=== PATIENT | female | born 1950 | race Hispanic/Latino ===

== ENCOUNTER 2016-12-29 09:28 | Outpatient (CLI) | payer MEDICARE ==
--- NOTE | 2016-12-29 11:18 | Magnetic Resonance Report ---
MRI BRAIN WITHOUT CONTRAST INDICATION: Paraplegia. COMPARISON: None similar. FINDINGS: Noncontrast multiplanar and multisequence MRI of the brain demonstrates symmetric, age-appropriate, mildly enlarged ventricles and sulci without acute infarct, hemorrhage, mass effect or midline shift. No abnormal extra-axial masses or fluid collections. Mild periventricular and few white matter FLAIR and T2 weighted hyperintensities. Normal major intracranial vascular flow voids. Normal posterior fossa structures with symmetric seventh and eighth nerve complexes. Bilateral cataract surgery. Severe, complete heterogeneous opacification of left maxillary sinus, possibly slightly extending into the nasal cavity. Slight ethmoid sinusitis. Mild to moderate left sphenoid sinus opacification as well. Mild rightward nasal septal bowing anteriorly. Normal remainder midline structures without evidence of Chiari malformation. CONCLUSION: No acute intracranial MRI abnormality with left-sided sinusitis noted, most involving the left maxillary sinus, as described. Please correlate clinically, with prior relevant imaging or further with dedicated sinus CT, as warranted. Thank you for the opportunity to participate in this patient's care.
--- NOTE | 2016-12-29 11:28 | Magnetic Resonance Report ---
MRI LUMBAR SPINE WITHOUT CONTRAST INDICATION: Paraplegia, unspecified. COMPARISON: None similar. FINDINGS: Noncontrast multiplanar and multisequence MRI of the lumbar spine limited due to motion artifact with repeats not tolerated by the patient. Normal conus medullaris terminating behind L1. Normal vertebral body stature, alignment and marrow signal except for slight edema along L5 superior endplate Schmorl's node. Few other lumbar endplate Schmorl's nodes noted. Slight lumbar disc desiccation at few levels. Mild to moderate L4-5 disc narrowing. No abnormal paraspinal density. Intact SI joints. Axial images demonstrate no significant spinal stenosis at any level. Slight disc bulge with ventral thecal sac flattening/indentation incidentally noted as at L4-L5. Mild bilateral facet degenerative changes at L3-L4 and L4-L5. CONCLUSION: No acute lumbar spine radiographic abnormality on this limited exam with few degenerative changes, as described above. Thank you for the opportunity to participate in this patient's care.
== END 2016-12-29 09:29 | disposition home or self-care (01) ==
LOC: MRI 09:28
PROVIDERS: ATTEND Psychiatry & Neurology Neurology
DX: G82.20 Paraplegia, unspecified (principal); G91.2 (Idiopathic) normal pressure hydrocephalus; M48.06 Spinal stenosis, lumbar region; M47.896 Other spondylosis, lumbar region; F17.210 Nicotine dependence, cigarettes, uncomplicated
CPT/HCPCS: 70551; 72148

== ENCOUNTER 2017-01-10 09:34 | Day surgery (SDC) | payer MEDICARE ==
[2017-01-10 11:39] LABS: INR 1.24 (0.87-1.13)
[2017-01-10 11:40] LABS: Partial Thromboplastin Time 37.1 Sec. (24.2-36.6)
[2017-01-10] MEDS ORDERED: VALIUM PO ONE (12:30)
--- NOTE | 2017-01-10 13:53 | History and Physical Report ---
History of Present Illness Date of examination: 01/10/17 Chief complaint: h/a History of present illness: chronic Medications and Allergies Allergies Allergy/AdvReac Type Severity Reaction Status Date / Time No Known Allergies Allergy Unverified 05/25/13 18:26 Home Medications Medication Instructions Recorded Confirmed Last Taken Type Aspirin [Aspirin TAB] 325 mg PO Q6HR PRN 01/10/17 01/10/17 Unknown History Bisacodyl [Dulcolax suppos] 10 mg [place] ONCE PRN 01/10/17 01/10/17 Unknown History Carbidopa/Levodopa 10-100 [Sinemet 1 tab PO Q8H 01/10/17 01/10/17 01/10/17 04: 30 History 10/100] Cyclobenzaprine [Flexeril] 10 mg PO BID 01/10/17 01/10/17 01/09/17 History HYDROcodone/APAP 5-325 [Agate 1 each PO Q4HR PRN 01/10/17 01/10/17 Unknown History 5/325] Insulin Aspart [Novolog Flexpen] 1 unit SQ BID 01/10/17 01/10/17 Unknown History Insulin NPH/Regular [Novolin 70/30] 30 unit SQ QDAC 01/10/17 01/10/17 01/09/17 History Insulin NPH/Regular [Novolin 70/30] 100 unit SQ QPMDIAB 01/10/17 01/10/17 History Linaclotide (Nf) [Linzess (Nf)] 290 mcg PO QDAY 01/10/17 01/10/17 01/09/17 History Methadone [Dolophine] 15 mg PO QAM 01/10/17 01/10/17 01/10/17 04:30 History Methadone [Dolophine] 20 mg PO QPM 01/10/17 01/10/17 01/09/17 History Metoclopramide HCl [Metoclopramide 10 mg PO Q8H 01/10/17 01/10/17 01/10/17 04: 30 History HCl Odt] Multivit with Calcium,Iron,Min 1 tab PO DAILY 01/10/17 01/10/17 01/09/17 History [Multiple Vitamins For Women] Omeprazole Magnesium [PriLOSEC Otc] 20 mg PO QAM 01/10/17 01/10/17 01/09/17 History Sertraline [Zoloft] 100 mg PO QAM 01/10/17 01/10/17 01/10/17 04:30 History Spironolactone [Aldactone] 50 mg PO BID 01/10/17 01/10/17 01/10/17 04:30 History buPROPion XL [Wellbutrin Xl] 150 mg PO QAM 01/10/17 01/10/17 01/09/17 History glyBURIDE [Diabeta] 2.5 mg PO DAILY 01/10/17 01/10/17 01/09/17 History guaiFENesin/DEXTROMETHORPHAN 10 ml PO TID PRN 01/10/17 01/10/17 Unknown History [Robitussin Cough-Chest Dm Liq] traMADol [Ultram] 50 mg PO BID PRN 01/10/17 01/10/17 01/09/17 History traZODone [Desyrel] 50 mg PO QHS 01/10/17 01/10/17 01/09/17 History Exam Vital Signs Temp Pulse Resp BP Pulse Ox 98.4 F 96 H 18 114/69 96 01/10/17 10:25 01/10/17 10:25 01/10/17 10:25 01/10/17 10:25 01/10/17 10:25
--- NOTE | 2017-01-10 13:55 | Procedure Note ---
Date of procedure: 01/10/17 Pre-op diagnosis: nph Post-op diagnosis: same Procedure: lumbar puncture Findings: 25cc clear fluid Anesthesia: local Surgeon: FERNANDO LEDBETTER Estimated blood loss: none Pathology: list (csf) Specimen disposition: to lab Condition: stable Disposition: observation
[2017-01-10] MEDS ORDERED: TYLENOL PO ONE (14:26)
--- NOTE | 2017-01-10 14:50 | Fluoroscopy Report ---
Lumbar puncture: Normal pressure hydrocephalus. The patient was placed on a radiographic table and under fluoroscopic observation position or the lumbar puncture. The skin was cleansed and 1% lidocaine used for local anesthesia. A successful puncture was made with a 20-gauge needle at the L4 level. A total of 25 cc of clear fluid was removed as requested and then sent to the laboratory in 4 separate vials for evaluation. There is an opening pressure of 10 cm of water and the closing pressure of 3 cm. No patient complication encountered at the time of the procedure. The patient was then sent to observation.
[2017-01-10 14:53] LABS: Glucose,CSF 61 mg/dL
[2017-01-10 14:55] VITALS: BP 117/71
[2017-01-10 15:56] LABS: White Blood Cell,CSF 0 /mm3 (1-10)
[2017-01-10 15:57] LABS: Appearance,CSF Clear; CSF Diff Status Complete
== END 2017-01-10 15:05 ==
LOC: OPU 09:34 → FLUORO 09:34 → OPU 15:05
PROVIDERS: ATTEND Psychiatry & Neurology Neurology
DX: G91.2 (Idiopathic) normal pressure hydrocephalus (principal); E11.9 Type 2 diabetes mellitus without complications; Z79.4 Long term (current) use of insulin
CPT/HCPCS: 36415; 62270; 77003; 82947; 84160; 85610; 85730; 89051

== ENCOUNTER 2017-03-07 22:54 | Inpatient (IN) | payer MEDICARE ==
[2017-03-07] MEDS ORDERED: NACL 0.9% 1000 ML 1,000 ML IV ONE (23:51)
--- NOTE | 2017-03-07 23:53 | Emergency Department Report ---
ED General Adult HPI - General Chief complaint: Recheck/Abnormal Lab/Rx Stated complaint: GENERAL WEAKNESS, LETHARGIC Time Seen by Provider: 03/07/17 23:40 Source: patient, EMS (ems notes not available at time of chart dictation), RN notes reviewed, old records reviewed Mode of arrival: Stretcher Limitations: Physical Limitation - History of Present Illness Initial comments: This is a 66-year-old female. She is previously unknown to me. [facility]. Past medical history includes diabetes, hepatitis C. Patient was sent to the ER for evaluation of altered mental status, delirium, decreased responsiveness, patient is unable to describe exacerbating or relieving factors. Patient denies headache, neck pain, chest pain, abdominal pain or shortness of breath. The patient reports the follow week ago, she does not know how she fell. The patient is presently altered, and cannot describe exacerbating or relieving factors. senior living documentation is limited at this time. -: unknown Consistency: constant Improves with: none, immobilization Associated Symptoms: confusion, weakness - Related Data Home Medications Medication Instructions Recorded Confirmed Last Taken Aspirin [Aspirin TAB] 325 mg PO Q6HR PRN 01/10/17 01/10/17 Unknown Bisacodyl [Dulcolax suppos] 10 mg [place] ONCE PRN 01/10/17 01/10/17 Unknown Carbidopa/Levodopa 10-100 [Sinemet 1 tab PO Q8H 01/10/17 01/10/17 01/10/17 04:30 10/100] Cyclobenzaprine [Flexeril] 10 mg PO BID 01/10/17 01/10/17 01/09/17 HYDROcodone/APAP 5-325 [Bethany 1 each PO Q4HR PRN 01/10/17 01/10/17 Unknown 5/325] Insulin Aspart [Novolog Flexpen] 1 unit SQ BID 01/10/17 01/10/17 Unknown Insulin NPH/Regular [Novolin 70/30] 30 unit SQ QDAC 01/10/17 01/10/17 01/09/17 Insulin NPH/Regular [Novolin 70/30] 100 unit SQ QPMDIAB 01/10/17 01/10/17 Linaclotide (Nf) [Linzess (Nf)] 290 mcg PO QDAY 01/10/17 01/10/17 01/09/17 Methadone [Dolophine] 15 mg PO QAM 01/10/17 01/10/17 01/10/17 04:30 Methadone [Dolophine] 20 mg PO QPM 01/10/17 01/10/17 01/09/17 Metoclopramide HCl [Metoclopramide 10 mg PO Q8H 01/10/17 01/10/17 01/10/17 04:30 HCl Odt] Multivit with Calcium,Iron,Min 1 tab PO DAILY 01/10/17 01/10/17 01/09/17 [Multiple Vitamins For Women] Omeprazole Magnesium [PriLOSEC Otc] 20 mg PO QAM 01/10/17 01/10/17 01/09/17 Sertraline [Zoloft] 100 mg PO QAM 01/10/17 01/10/17 01/10/17 04:30 Spironolactone [Aldactone] 50 mg PO BID 01/10/17 01/10/17 01/10/17 04:30 buPROPion XL [Wellbutrin Xl] 150 mg PO QAM 01/10/17 01/10/17 01/09/17 glyBURIDE [Diabeta] 2.5 mg PO DAILY 01/10/17 01/10/17 01/09/17 guaiFENesin/DEXTROMETHORPHAN 10 ml PO TID PRN 01/10/17 01/10/17 Unknown [Robitussin Cough-Chest Dm Liq] traMADol [Ultram] 50 mg PO BID PRN 01/10/17 01/10/17 01/09/17 traZODone [Desyrel] 50 mg PO QHS 01/10/17 01/10/17 01/09/17 Allergies Allergy/AdvReac Type Severity Reaction Status Date / Time No Known Allergies Allergy Verified 03/07/17 23:29 ED Review of Systems ROS: Stated complaint: GENERAL WEAKNESS, LETHARGIC Other details as noted in HPI Comment: Unobtainable due to pts medical conditions ED Past Medical Hx - Past Medical History Previous Medical History?: Yes Hx Hypertension: No Hx Heart Attack/AMI: No Hx Congestive Heart Failure: No Hx Diabetes: Yes (IDDM) Hx Liver Disease: Yes Hx Asthma: No Hx COPD: No - Surgical History Past Surgical History?: Yes Additional Surgical History: hyst - Social History Smoking Status: Never Smoker Substance Use Type: Alcohol - Medications Home Medications: Home Medications Medication Instructions Recorded Confirmed Last Taken Type Aspirin [Aspirin TAB] 325 mg PO Q6HR PRN 01/10/17 01/10/17 Unknown History Bisacodyl [Dulcolax suppos] 10 mg [place] ONCE PRN 01/10/17 01/10/17 Unknown History Carbidopa/Levodopa 10-100 [Sinemet 1 tab PO Q8H 01/10/17 01/10/17 01/10/17 04: 30 History 10/100] Cyclobenzaprine [Flexeril] 10 mg PO BID 01/10/17 01/10/17 01/09/17 History HYDROcodone/APAP 5-325 [Bethany 1 each PO Q4HR PRN 01/10/17 01/10/17 Unknown History 5/325] Insulin Aspart [Novolog Flexpen] 1 unit SQ BID 01/10/17 01/10/17 Unknown History Insulin NPH/Regular [Novolin 70/30] 30 unit SQ QDAC 01/10/17 01/10/17 01/09/17 History Insulin NPH/Regular [Novolin 70/30] 100 unit SQ QPMDIAB 01/10/17 01/10/17 History Linaclotide (Nf) [Linzess (Nf)] 290 mcg PO QDAY 01/10/17 01/10/17 01/09/17 History Methadone [Dolophine] 15 mg PO QAM 01/10/17 01/10/17 01/10/17 04:30 History Methadone [Dolophine] 20 mg PO QPM 01/10/17 01/10/17 01/09/17 History Metoclopramide HCl [Metoclopramide 10 mg PO Q8H 01/10/17 01/10/17 01/10/17 04: 30 History HCl Odt] Multivit with Calcium,Iron,Min 1 tab PO DAILY 01/10/17 01/10/17 01/09/17 History [Multiple Vitamins For Women] Omeprazole Magnesium [PriLOSEC Otc] 20 mg PO QAM 01/10/17 01/10/17 01/09/17 History Sertraline [Zoloft] 100 mg PO QAM 01/10/17 01/10/17 01/10/17 04:30 History Spironolactone [Aldactone] 50 mg PO BID 01/10/17 01/10/17 01/10/17 04:30 History buPROPion XL [Wellbutrin Xl] 150 mg PO QAM 01/10/17 01/10/17 01/09/17 History glyBURIDE [Diabeta] 2.5 mg PO DAILY 01/10/17 01/10/17 01/09/17 History guaiFENesin/DEXTROMETHORPHAN 10 ml PO TID PRN 01/10/17 01/10/17 Unknown History [Robitussin Cough-Chest Dm Liq] traMADol [Ultram] 50 mg PO BID PRN 01/10/17 01/10/17 01/09/17 History traZODone [Desyrel] 50 mg PO QHS 01/10/17 01/10/17 01/09/17 History ED Physical Exam - General Limitations: Altered Mental Status, Physical Limitation General appearance: in no apparent distress, lethargic - Head Head exam: Present: atraumatic, normocephalic - Eye Eye exam: Present: normal appearance, PERRL, EOMI. Absent: nystagmus - ENT ENT exam: Present: mucous membranes dry, other (there is left-sided submandibular ecchymosis.) - Neck Neck exam: Present: normal inspection, full ROM. Absent: tenderness, meningismus - Respiratory Respiratory exam: Present: normal lung sounds bilaterally. Absent: respiratory distress, wheezes, rales, rhonchi, stridor, chest wall tenderness, accessory muscle use, decreased breath sounds, prolonged expiratory - Cardiovascular Cardiovascular Exam: Present: normal rhythm, tachycardia, normal heart sounds. Absent: systolic murmur, diastolic murmur, rubs, gallop - GI/Abdominal GI/Abdominal exam: Present: soft, normal bowel sounds. Absent: distended, tenderness, guarding, rebound, rigid, pulsatile mass - Extremities Exam Extremities exam: Present: normal inspection, normal capillary refill, pedal edema. Absent: calf tenderness - Back Exam Back exam: Present: normal inspection, full ROM. Absent: tenderness, CVA tenderness (R), CVA tenderness (L), muscle spasm, paraspinal tenderness, vertebral tenderness - Neurological Exam Neurological exam: Present: altered (patient is alert to name. Does not know where she is, does not know the day the week, does not know the month. Does not appear.), other (moves 4 extremities spontaneously. 5 out of 5 strength in 4 extremities. Sensation is intact to light touch. No facial drift.) - Psychiatric Psychiatric exam: Present: normal affect, normal mood - Skin Skin exam: Present: warm, dry, intact, normal color. Absent: rash ED Course Vital Signs 03/07/17 03/08/17 03/08/17 23:45 00:00 00:15 Temperature Pulse Rate 109 H Respiratory 16 Rate Blood Pressure 102/63 102/63 Blood Pressure 109/66 [Left] O2 Sat by Pulse 95 95 96 Oximetry 03/08/17 03/08/17 03/08/17 00:16 00:31 00:38 Temperature 98.2 F Pulse Rate 103 H Respiratory 12 Rate Blood Pressure 101/66 Blood Pressure [Left] O2 Sat by Pulse 92 93 Oximetry 03/08/17 00:50 Temperature Pulse Rate Respiratory 14 Rate Blood Pressure Blood Pressure [Left] O2 Sat by Pulse Oximetry - Reevaluation(s) Reevaluation #1: 03/08/17 01:00 Differential diagnosis: Intracranial injury, cervical spine injury, pneumonia, urinary tract infection, dehydration, electrolyte derangement Hepatic encephalopathy, thyroid disease Assessment and plan: 66-year-old female with altered mental status, nonfocal neurologic examination, probable acute delirium. Afebrile rectally. Noncontrast CT scan of the brain and cervical spine pending. Laboratory studies pending. Urinalysis pending. Ammonia level is elevated, suggestive of encephalopathy, patient is certainly encephalopathic clinically. She will require admission. Reevaluation #2: 03/08/17 02:[address] scan of the brain is negative. Laboratory studies consistent with hepatic encephalopathy, suggest urinary tract infection Case is presented to the Hospital physician, Dr. Calderon, who accepts the patient to his service for delirium, urinary tract infection, hepatic encephalopathy. ED Medical Decision Making - Lab Data Result diagrams: 03/08/17 00:16 03/08/17 00:16 Vital Signs 03/07/17 03/08/17 03/08/17 23:45 00:00 00:15 Temperature Pulse Rate 109 H Respiratory 16 Rate Blood Pressure 102/63 102/63 Blood Pressure 109/66 [Left] O2 Sat by Pulse 95 95 96 Oximetry 03/08/17 03/08/17 03/08/17 00:16 00:31 00:38 Temperature 98.2 F Pulse Rate 103 H Respiratory 12 Rate Blood Pressure 101/66 Blood Pressure [Left] O2 Sat by Pulse 92 93 Oximetry 03/08/17 00:50 Temperature Pulse Rate Respiratory 14 Rate Blood Pressure Blood Pressure [Left] O2 Sat by Pulse Oximetry Lab Results 03/08/17 03/08/17 03/08/17 Range/Units 00:16 00:16 00:16 WBC 7.8 (4.5-11.0) K/mm3 RBC 4.10 (3.65-5.03) M/mm3 Hgb 10.5 (10.1-14.3) gm/dl Hct 33.6 (30.3-42.9) % MCV 82 (79-97) fl MCH 26 L (28-32) pg MCHC 31 (30-34) % RDW 17.5 H (13.2-15.2) % Lymph % (Auto) 14.3 (13.4-35.0) % Scurry % (Auto) 12.2 H (0.0-7.3) % Eos % (Auto) 3.3 (0.0-4.3) % Baso % (Auto) 1.0 (0.0-1.8) % Lymph # 1.1 L (1.2-5.4) K/mm3 Scurry # 1.0 H (0.0-0.8) K/mm3 Eos # 0.3 (0.0-0.4) K/mm3 Baso # 0.1 (0.0-0.1) K/mm3 Seg Neutrophils % 69.2 (40.0-70.0) % Seg Neutrophils # 5.4 (1.8-7.7) K/mm3 POC Glucose (70-105) Lactic Acid 1.30 (0.7-2.0) mmol/L Ammonia 132.0 H (25-60) umol/L 03/08/17 Range/Units 00:45 WBC (4.5-11.0) K/mm3 RBC (3.65-5.03) M/mm3 Hgb (10.1-14.3) gm/dl Hct (30.3-42.9) % MCV (79-97) fl MCH (28-32) pg MCHC (30-34) % RDW (13.2-15.2) % Lymph % (Auto) (13.4-35.0) % Scurry % (Auto) (0.0-7.3) % Eos % (Auto) (0.0-4.3) % Baso % (Auto) (0.0-1.8) % Lymph # (1.2-5.4) K/mm3 Scurry # (0.0-0.8) K/mm3 Eos # (0.0-0.4) K/mm3 Baso # (0.0-0.1) K/mm3 Seg Neutrophils % (40.0-70.0) % Seg Neutrophils # (1.8-7.7) K/mm3 POC Glucose 99 (70-105) Lactic Acid (0.7-2.0) mmol/L Ammonia (25-60) umol/L - EKG Data -: EKG Interpreted by Me EKG shows normal: sinus rhythm Rate: tachycardia - EKG Data 03/08/17 01:02 Sinus tachycardia, 105 bpm, normal axis, QTC 470 ms, low voltage, abnormal EKG, not morphologically consistent with STEMI - Radiology Data Radiology results: image reviewed interpreted by me: X-ray of the chest is negative for acute disease, chronic interstitial findings are noted Critical care attestation.: If time is entered above; I have spent that time in minutes in the direct care of this critically ill patient, excluding procedure time. ED Disposition Clinical Impression: Hepatic encephalopathy UTI (urinary tract infection) Qualifiers: Urinary tract infection type: site unspecified Hematuria presence: without hematuria Qualified Code(s): N39.0 - Urinary tract infection, site not specified Disposition: OP ADMIT IP TO THIS HOSP Is pt being admited?: Yes Condition: Fair
[2017-03-08 00:49] LABS: Eosinophils % (Auto) 3.3 % (0.0-4.3); Hematocrit 33.6 % (30.3-42.9); Hemoglobin 10.5 gm/dl (10.1-14.3); Mean Corpuscular HGB Conc 31 % (30-34); Mean Corpuscular Volume 82 fl (79-97); Red Cell Distribution Width 17.5 % (13.2-15.2); White Blood Count 7.8 K/mm3 (4.5-11.0)
[2017-03-08 00:51] LABS: Urine Drugs of Abuse Note Disclamer
[2017-03-08 00:53] LABS: Mean Corpuscular Hemoglobin 26 pg (28-32)
[2017-03-08] MEDS ORDERED: CEPHULAC PO ONE (00:56)
[2017-03-08 01:02] LABS: INR 1.08 (0.87-1.13)
[2017-03-08 01:03] LABS: Partial Thromboplastin Time 29.2 Sec. (24.2-36.6)
[2017-03-08 01:04] LABS: Alanine Aminotransferase 14 units/L (7-56); Albumin 3.3 g/dL (3.9-5); Albumin/Globulin Ratio 0.8 %; Alkaline Phosphatase 113 units/L (35-129); Anion Gap 20 mmol/L; BUN/Creatinine Ratio 21.25; Blood Urea Nitrogen 17 mg/dL (7-17); Calcium 8.7 mg/dL (8.4-10.2); Carbon Dioxide 21 mmol/L (22-30); Chloride 103.7 mmol/L (98-107); Creatine Kinase 82 units/L (30-135); Glucose 93 mg/dL (65-100); Potassium 3.8 mmol/L (3.6-5.0); Sodium 141 mmol/L (137-145); Total Protein 7.2 g/dL (6.3-8.2)
[2017-03-08 01:12] LABS: Bacteria,Urine 1+ /HPF (Negative); Bilirubin,Urine NEG (Negative); Blood,Urine NEG (Negative); Ketones,Urine NEG (Negative); Leukocyte Esterase,Urine MOD (Negative); Mucus,Urine FEW /HPF; Nitrite,Urine NEG (Negative); Protein,Urine <15 mg/dL mg/dL (Negative)
[2017-03-08 01:31] LABS: Platelet Count 91 K/mm3 (140-440)
[2017-03-08] MEDS ORDERED: ROCEPHIN/NS 1 GM/50 ML 1 GM/50 ML BAG IV ONE (01:55)
--- NOTE | 2017-03-08 01:56 | XRay Report ---
FINAL REPORT PROCEDURE: XR CHEST 1V AP TECHNIQUE: Chest radiograph anteroposterior view. CPT 15894 HISTORY: Altered Mental Status COMPARISON: No prior studies are available for comparison. FINDINGS: Heart: Normal. Mediastinum/Vessels: Normal. Lungs/Pleural space: There is suboptimal inspiration. There are mild fibrotic changes. There are no acute infiltrates. There are no effusions or pneumothoraces.. Bony thorax: No acute osseous abnormality. Life support devices: None. IMPRESSION: No acute cardiopulmonary abnormality.
--- NOTE | 2017-03-08 02:03 | Cat Scan Report ---
FINAL REPORT PROCEDURE: CT HEAD/BRAIN WO CON TECHNIQUE: Computerized tomography of the head was performed without contrast material. HISTORY: Altered Mental Status COMPARISON: No prior studies are available for comparison. FINDINGS: Skull and scalp: Normal. Paranasal sinuses: There appears to have been prior endoscopic nasal sinus surgery. There is a 2.6 centimeter soft tissue mass in the left maxillary sinus which could be a large polyp or retention cyst. There is minimal fluid in the sphenoid sinus. The mastoid air cells are clear.. Ventricles and subarachnoid spaces: There is moderate age-appropriate central and cortical atrophy. There is no hydrocephalus per. Cerebrum: No evidence of hemorrhage, acute infarction or mass . Cerebellum and brainstem: No evidence of hemorrhage, acute infarction or mass. Vasculature: Normal. Comments: None. IMPRESSION: There are chronic involutional changes. There is no skull fracture. There is no intracranial hemorrhage. There is a left maxillary sinus polyp or retention cyst.
--- NOTE | 2017-03-08 02:12 | Cat Scan Report ---
FINAL REPORT PROCEDURE: CT CERVICAL SPINE WO CON TECHNIQUE: Computerized tomography of the cervical spine was performed from the skull base to T1 without contrast material. HISTORY: fall ams COMPARISON: No prior studies are available for comparison. FINDINGS: There is the skull base and foramen magnum are intact. Cervical vertebrae are intact. There are no fractures or malalignments. There is degenerative loss of disc height with osteophytic ridging and facet arthropathy at C5-C6 and C6-C7. There is no significant bony spinal or foraminal stenosis. The prevertebral soft tissues are normal in thickness. IMPRESSION: No significant abnormality.
[2017-03-08] MEDS ORDERED: TYLENOL PO PRN (03:18)
[2017-03-08] MEDS ORDERED: ZOFRAN IV PRN (03:18)
[2017-03-08] MEDS ORDERED: ASPIRIN PO PRN (03:22)
[2017-03-08] MEDS ORDERED: DEXTROMETHORPHAN PO PRN (03:22)
[2017-03-08] MEDS ORDERED: NORCO 5/325 PO PRN (03:22)
[2017-03-08] MEDS ORDERED: GUAIFENESIN PO PRN (03:22)
[2017-03-08] MEDS ORDERED: METOCLOPRAMIDE HCL 10 MG PO SCH (03:30)
[2017-03-08] MEDS ORDERED: D50W (25GM) Syringe IV PRN (03:43)
[2017-03-08] MEDS ORDERED: ROBITUSSIN DM PO PRN (03:56)
--- NOTE | 2017-03-08 05:26 | History and Physical Report ---
CHIEF COMPLAINT: Altered mental status. HISTORY OF PRESENT ILLNESS: The patient is a 66-year-old female brought from the detention after she was found to be confused with decreased responsiveness. The patient was unable to describe her symptoms. There was no history of fever, no history of chills. No history of chest pain, shortness of breath, nausea or vomiting. Also, there was no history of headache; however, there was a report from the detention that patient states she fell some time in the last few days, but does not remember how she fell. PAST MEDICAL HISTORY: Pertinent for diabetes mellitus and also the patient has past history of liver disease and hepatitis C. PAST SURGICAL HISTORY: Pertinent for hysterectomy. FAMILY HISTORY: Noncontributory. SOCIAL HISTORY: The patient stays at a detention, does not smoke, used to drink alcohol and does not use illicit drugs. MEDICATIONS: The patient is on aspirin 325 mg by mouth every 6 hours as needed for pain, Dulcolax 10 mg rectal as needed for constipation, Sinemet, carbidopa/levodopa 10/100 one tablet by mouth q.8 hours, Flexeril 10 mg by mouth twice daily, [place] 5/325 mg 1 by mouth every 4 hours as needed for pain, NovoLog Flex Pen insulin 20 units subq b.i.d., Novolin 70/30 30 units subcutaneous a.c. Novolin 70/30 100 units subq q.p.m, linaclotide or Linzess 290 mcg by mouth daily, methadone 50 mg p.o. every morning and 20 mg every evening, metoclopramide, hydrochloride ODT 10 mg p.o. q.8h., multivitamin with calcium, iron, and minerals for women 1 tablet p.o. daily, omeprazole 20 mg by mouth every morning, Zoloft 100 mg by mouth every morning, Aldactone 50 mg by mouth twice daily, Wellbutrin 150 mg by mouth every morning, glyburide 2.5 mg by mouth daily, guaifenesin/dextromethorphan 10 mL p.o. t.i.d., tramadol 50 mg by mouth twice daily, trazodone 50 mg at bedtime. ALLERGIES: There are no known drug allergies. REVIEW OF SYSTEMS: CONSTITUTIONAL: There is no fever, no chills, no diaphoresis. HEENT: There is no headache or sore throat. CARDIOVASCULAR: Show no chest pain, orthopnea. RESPIRATORY: Showed no shortness of breath or cough. GASTROINTESTINAL: Showed no abdominal pain, diarrhea, constipation, nausea, and vomiting. NEUROLOGICAL SYSTEM: Confusion noted. No dizziness. MUSCULOSKELETAL SYSTEM: There is no joint pain or swelling. DERMATOLOGICAL SYSTEM: There is no skin rash or itching. GENITOURINARY: There is no dysuria, hematuria, or flank pain. Rest of system review is normal. PHYSICAL EXAMINATION: GENERAL: At the time of exam, the patient was found to be alert, oriented to person only and not in acute distress. VITAL SIGNS: Shows normal temperature with pulse of 99, respirations 12, blood pressure 109/56, O2 sat of 99% on room air. HEENT: Showed pupils to be equal, round, reactive to light and accommodating. Extraocular muscles are intact. NECK: Supple with no JVD or carotid bruit. CARDIOVASCULAR SYSTEM: Show first and second heart sounds with no gallops or murmur. RESPIRATORY SYSTEM: Show good air entry on both sides of the lung with no abnormal breath sounds. GASTROINTESTINAL SYSTEM: Show abdomen to be full, soft, nontender with no organomegaly or rigidity. NEUROLOGICAL: Showed no focal deficit. MUSCULOSKELETAL: Show no joint swelling or tenderness. DERMATOLOGICAL SYSTEM: Show no skin rash. GENITOURINARY: Showing no costovertebral angle tenderness. IMAGING STUDIES: The patient had CT of the cervical spine done that shows no acute lesion. CT of the head without contrast showed chronic involutional changes. There is no skull fracture. There is no intracranial hemorrhage; however, there is no left maxillary sinus polyp or retention cyst on CT of the head. The patient also had chest x-ray done that shows no acute cardiopulmonary lesion. The patient's lab results CBC showed normal white count, normal hemoglobin, normal hematocrit with reduced platelet count of 91,000. Coagulation studies came back unremarkable. The patient's chemistry was normal except for low CO2 of 21 with a very high ammonia level of 132 and a slightly decreased albumin level of 3.3. Liver transaminases came back normal. DIAGNOSES: 1. Change in mental status. 2. Elevated ammonia level. 3. Urinary tract infection. PLAN: The patient will be admitted to medical floor on telemetry and will have ammonia level checked in the morning. The patient will be on lactulose 10 grams p.o. q.6 hours and will be on Tylenol 650 mg by mouth q.4. for fever, headache and aspirin 325 mg by mouth daily. The patient will be on IV Zofran 4 mg every 6 hours as needed for nausea and vomiting and DVT prophylaxis will be through sequential compressive device. The patient will be on Accu-Chek a.c. and at bedtime, followed by low-dose sliding scale, using regular insulin coverage. The patient's diet will be 1800 calorie diabetic diet. The patient will be on IV ceftriaxone 1 gram q.24h hours for treatment of UTI. The patient will be on oxygen by nasal cannula at 2 liters per minute. The patient's home medications will be reconciled and applied accordingly. JOB# [id number] OCN/NTS
[2017-03-08] MEDS: REGLAN PO SCH ×3 (05:50→22:34)
[2017-03-08] MEDS: CEPHULAC PO SCH ×4 (05:51→23:22)
[2017-03-08] MEDS: SINEMET PO SCH ×3 (05:51→22:40)
--- NOTE | 2017-03-08 07:49 | Admit Criteria Form ---
Admission Criteria Documentation: GASTROENTEROLOGY GRG Clinical Indications for Admission to Inpatient Care ([place]/ check or initial the applicable condition/criteria) Hospital admission is needed for appropriate care of the patient because of ANY ONE of the following: [ ]I. Suspected acute intra-abdominal process indicated by 1 or more of the following(1)(2)(3)(4)(5): [ ]a) Hemodynamic instability [ ]b) Peritoneal signs present (eg, abdominal rigidity, rebound tenderness, absent bowel sounds) [ ]c) Bowel obstruction suspected (eg, persistent vomiting, abdominal distention)(6)(7)(8) [ ]d) Suspected mesenteric ischemia or ischemic colitis(9)(10)(11) [ ]e) Other signs or symptoms of acute abdominal disease (eg, severe pain, free air)(12) [ ]II. Hemoperitoneum(13)(14) [ ]III. Ascites requiring acute treatment indicated by 1 or more of the following (15)(16)(17)(18) [ ]a) Hemodynamic instability [ ]b) Peritoneal signs present (e.g., abdominal rigidity, rebound tenderness , absent bowel sounds) [ ]c) Tachypnea, Hypoxemia,or other respiratory symptoms remain after emergency or observation level care (as appropriate) [ ]d) Suspected infected ascites as indicated by 1 or more of the following( 19)(20) [ ]i) Fever [ ]ii) Vital sign abnormality [ ]iii) Abdominal pain or tenderness not relieved by paracentesis [ ]iv) Systemic signs of infection (e.g., elevated WBC count, fever) [ ]v) Ascitic fluid analysis consistent with infection ( e.g., elevated WBC count) [X ]IV. Severe liver disease indicated by 1 or more of the following (15)(16)(21 )(22)(23)(24)(25)(26)(27)(28) [ ]a) Acute hepatitis (e.g., transaminaselevel greater than 1000 IU/L) [ ]b) Acute elevation of prothrombintime to more than 50% above normal or INR greater than 1.5 [ ]c) Bilirubin greater than 20 mg/dL (342 micromoles/L) [X]d) New-onset or worseninghepatic encephalopathy [ ]e) Acute elevation of serum ammonia level (eg, greater than 210 mcg/dL ( 150 micromoles/L)) [ ]f) Acute liver necrosis [ ]g) Vomiting that is severe of persistent [ ]h) Hemodynamic instability due to liver disease [ ]i) Acute renal failure [ ]j) Hepatic abscess [ ]k) Hepatic hydrothorax(29) [ ]l) Other indications of severe liver disease (e.g., persistent fever, ingestion of hepatotoxin)(30) [ ]V. Dehydration that is severe or persistent [ ]. Severe diarrhea indicated by 1 or more of the following (31)(32)(33)(34)( 35) : [ ]a) High fever or other high-risk infection situation [ ]b) Intractable bloody diarrhea (e.g., more than 6 bloody stools per day ) [ ]c) Suspected etiology (Clostridiumdifficile-associated diarrhea) that requires isolation or care not feasible in outpatient setting (36) [ ]d) Altered mental status that is severe or persistent [ ]e) Dehydration that is severe or persistent [ ]g) Peritoneal signs present (e.g., abdominal rigidity, rebound tenderness, absent bowel sounds) [ ]h) Abdominal ischemia suspected (9)(10)(11) [ ]i) Hemodynamic instability [ ]j) Severe electrolyte abnormalities requiring inpatient care [ ]k) Acute renal failure [ ]VII. Suspected toxic lucille colon(4)(9) [ ]VIII. Severe dysphagia indicated by 1 or more of the following(37)(38) [ ]a) Suspected esophageal perforation or fistula(39) [ ]b) Suspected cause that requires inpatient care (e.g., caustic ingestion, severe esophagitis) (40)(41) [ ]c) Dehydration that is severe or persistent [ ]d) Inability to manage secretions or maintain hydration [ ]e) Hemodynamic instability [ ]f) Severe electrolyte abnormalities requiring inpatient care [ ]g) Acute renal failure [ ]IX. Vomiting and 1 or more of the following (42)(43)(44)(45)(46) [ ]a) High fever or other high-risk infection situation [ ]b) Altered mental status that is severe or persistent [ ]c) Dehydration that is severe or persistent [ ]d) Peritoneal signs present (e.g., abdominal rigidity, rebound tenderness, absent bowel sounds) [ ]e) Hemodynamic instability [ ] f) Severe electrolyte abnormalities requiring inpatient care [ ] g) Acute renal failure [ ]h) Bowel obstruction suspected (e.g., severe vomiting, abdominal distension) [ ]i) Vomiting that is severe or persistent [ ]X. Gastroparesis and 1 or more of the following(46)(47)(48)(49): [ ]a) Dehydration that is severe or persistent [ ]b) Severe electrolyte abnormalities requiring inpatient care [ ]c) Acute renal failure [ ]d) Vomiting that is severe or persistent [ ]XI Obstipation and 1 or more of the following(50)(51)(52)(53) [ ]a) Complication of fecal impaction (eg, stercoral ulceration, perforation , venous compression, obstructive uropathy) [ ]b) Fecal disimpaction by digital fragmentation or mechanical disimpaction unsuccessful [ ]XII Complication of gastrostomy or jejunostomy feeding tube(54)(55)(56) [ ]a) Luminal perforation [ ]b) Gastrocolonic fistula [ ]c) Cellulitis of surrounding area with failure of outpatient treatment [ ]d) Necrotizing fasciitis [ ]e) Peritonitis [ ]f) Gastric herniation or prolapse [ ]g) Ischemic necrosis of gastric wall ("buried bumper") [ ]h) Other complication of gastrostomy or jejunostomy unable to be resolved at lower level of care [ ]XII. Complications of transplanted liver indicated by 1 or more of the following(57)(58)(59): [ ]a) Acute graft rejection requiring inpatient management (eg, intravenous immuno suppression)(60)(61) [ ]b) Failure of transplanted liver as indicated by 1 or more of the following: [ ]i. Acute hepatitis (eg, transaminase level greater than 1000 International Units per liter (IU/L)) [ ]ii. Acute elevation of prothrombin time to more than 50% above baseline or INR greater than 1.5 [ ]iii. Bilirubin greater than 20 mg/dL (342 micromoles/L) [ ]iv. New-onset or worsening hepatic encephalopathy [ ]v. Acute elevation of serum ammonia level (eg, greater than 210 mcg/dL (150 micromoles/L)) [ ]vi. Acute liver necrosis [ ]c) Infection requiring inpatient management (eg, Hemodynamic instability, need for intravenous antimicrobial treatment) (62)(63)(64)(65)(66) [ ]d) Other complication of transplanted liver (eg, thrombosis, autoimmune hepatitis, variceal bleeding) requiring inpatient management (67)(68)(69) [ ]XII. Complications of transplanted pancreas indicated by 1 or more of the following (70) [ ]a) Acute graft rejection requiring inpatient management (eg, intravenous immunosuppression)(60)(71) [ ]b) Failure of transplanted pancreas as indicated by 1 or more of the following: [ ]i. Serum amylase greater than 3 times the upper limit of normal or baseline [ ]ii. Serum lipase greater than 3 times the upper limit of normal or baseline [ ]iii. Imaging findings consistent with pancreatic inflammation or necrosis [ ]c) Infection requiring inpatient management (eg, Hemodynamic instability, need for intravenous antimicrobial treatment) (64)(65)(66) [ ]d) Other complication of transplanted pancreas (eg, graft thrombosis, pancreatic duct stricture, anastomotic leak) requiring inpatient management (72 ) [ ]XIII. Gastroenterology condition,Symptom or finding for which emergency and observation care have failed or are not considered appropriate. See General criteria: Observation care, General Admission criteria or Pediatric General Admission criteria guideline as appropriate. The original [email or web address] content created by [employer] has been revised. The portions of the content which have been revised are identified through the use of italic text or in bold,and [facility] has neither reviewed nor approved the modified material. All other unmodified content is copyright [facility]. Please see references footnoted in the original [facility] edition 2017 Admission Criteria Met: Yes
[2017-03-08] MEDS: DIABETA PO SCH (08:26)
[2017-03-08] MEDS: NOVOLOG SUB-Q SCH ×2 (08:28→16:30)
[2017-03-08] MEDS ORDERED: NON-FORMULARY (Omeprazole Magnesium [Prilosec Otc] 20 MG) PO SCH (10:00)
[2017-03-08] MEDS ORDERED: INSULIN ASPART 1 UNIT SQ SCH (10:00)
[2017-03-08] MEDS ORDERED: NON-FORMULARY (Linaclotide (Nf) 290 MCG) PO SCH (10:00)
[2017-03-08] MEDS ORDERED: MULTIVIT WITH CALCIUM IRON MIN PO SCH (10:00)
[2017-03-08] MEDS: ALDACTONE PO SCH ×2 (10:52→22:35)
[2017-03-08] MEDS: ZOLOFT PO SCH (10:52)
[2017-03-08] MEDS: THERAGRAN-M Tab PO SCH (10:53)
[2017-03-08] MEDS: FLEXERIL PO SCH ×2 (10:53→22:35)
[2017-03-08] MEDS: WELLBUTRIN XL PO SCH (10:53)
[2017-03-08] MEDS: PROTONIX PO SCH (10:53)
[2017-03-08] MEDS: DOLOPHINE PO SCH (10:54)
[2017-03-08] MEDS: HEPARIN SUB-Q SCH ×3 (10:57→22:36)
--- NOTE | 2017-03-08 16:36 | Event Note ---
Date: 03/08/17 Patient seen and examined. Patient was sent to the ER for evaluation of altered mental status, delirium, decreased responsiveness. We'll continue current management and plan as dictated in H&P.
[2017-03-08] MEDS: DESYREL PO SCH (22:34)
[2017-03-08] MEDS: ROCEPHIN/NS 1 GM/50 ML 1 GM/50 ML BAG IV SCH (22:36)
[2017-03-09] MEDS: SINEMET PO SCH ×3 (05:13→22:49)
[2017-03-09] MEDS: CEPHULAC PO SCH ×4 (05:13→23:24)
[2017-03-09] MEDS: REGLAN PO SCH ×3 (05:13→22:49)
[2017-03-09] MEDS: WELLBUTRIN XL PO SCH (09:48)
[2017-03-09] MEDS: DOLOPHINE PO SCH (09:49)
[2017-03-09] MEDS: FLEXERIL PO SCH ×2 (09:49→22:49)
[2017-03-09] MEDS: DIABETA PO SCH (09:49)
[2017-03-09] MEDS: THERAGRAN-M Tab PO SCH (09:49)
[2017-03-09] MEDS: ZOLOFT PO SCH (09:50)
[2017-03-09] MEDS: ALDACTONE PO SCH ×2 (09:50→22:49)
[2017-03-09] MEDS: HEPARIN SUB-Q SCH ×2 (09:51→22:50)
[2017-03-09] MEDS: PROTONIX PO SCH (09:51)
[2017-03-09] MEDS: NOVOLOG SUB-Q SCH ×2 (09:52→18:45)
[2017-03-09 12:11] LABS: Anion Gap 18 mmol/L; BUN/Creatinine Ratio 13.75; Blood Urea Nitrogen 11 mg/dL (7-17); Calcium 8.5 mg/dL (8.4-10.2); Carbon Dioxide 23 mmol/L (22-30); Chloride 103.5 mmol/L (98-107); Glucose 124 mg/dL (65-100); Potassium 5.1 mmol/L (3.6-5.0); Sodium 139 mmol/L (137-145)
--- NOTE | 2017-03-09 14:52 | Progress Note ---
Assessment and Plan Acute toxic and metabolic encephalopathy - due to UTI and high ammonia level -We'll treat underlying cause Diabetes mellitus type 2 - Will cont on ADA diet and sliding scale of insulin Hyperammonemia - Placed on lactulose and we'll repeat ammonia level, Chronic liver disease with hepatitis C - Monitor LFT UTI - Follow urine culture and continue on ceftriaxone History of fall - will get PT eval DVT prophylaxis - Lovenox Brief history: The patient is a 66-year-old female who was sent from the skilled nursing after she was found to be confused with decrease responsiveness. There was a report from the skilled nursing that patient fell some time in the last few days but does not remember how she fell. CXR - no acute cardiopulmonary abnormality Cervical spine CT- no significant abnormality CT Head - there chronic involutional changes, no fracture no intracranial hemorrhage. Subjective Date of service: 03/09/17 Interval history: Patient seen and examined. Medical records and medication list reviewed. No acute event overnight noted by the RN. Patient denies any chest pain or difficulty breathing. Patient is tolerating diet. Objective - Exam Narrative Exam: GENERAL: well-developed and well-nourished white female lying on bed appeared to be in no discomfort. HEENT: Normocephalic. Atraumatic. No conjunctival congestion or icterus. Patient has dry mucous membranes with cracked lips. NECK: Supple. Trachea midline. CHEST/LUNGS: Clear to auscultated bilaterally, breathing nonlabored. No wheezes crackles or rhonchi. HEART/CARDIOVASCULAR: Regular in rate and rhythm. S1 and S2 positive. ABDOMEN: Abdomen is soft, nontender. Patient has normal bowel sounds. SKIN: There is no rash. Warm and dry. NEURO: Follows command. MUSCULOSKELETAL: No joint effusion or tenderness. EXTRIMITY: No edema, no cyanosis or clubbing. PSYCH: Cooperative. - Constitutional Vitals: Vital Signs - 12hr 03/09/17 03/09/17 03/09/17 05:36 06:00 08:00 Temperature 98.1 F 98.4 F Pulse Rate 107 H 102 H 99 H Respiratory 18 20 Rate Blood Pressure 106/67 108/62 O2 Sat by Pulse 100 100 Oximetry 03/09/17 03/09/17 03/09/17 09:50 12:00 13:26 Temperature 98.7 F Pulse Rate 99 H 69 Respiratory 18 Rate Blood Pressure 108/62 114/78 O2 Sat by Pulse 99 98 Oximetry - Labs CBC & Chem 7: 03/08/17 00:16 03/09/17 11:43 Labs: Abnormal lab results 03/08/17 03/08/17 03/08/17 Range/Units 16:18 18:47 21:40 Potassium (3.6-5.0) mmol/L Glucose (65-100) mg/dL POC Glucose 51 L 59 L 50 L (70-105) Ammonia (25-60) umol/L 03/09/17 03/09/17 Range/Units 11:43 11:43 Potassium 5.1 H D (3.6-5.0) mmol/L Glucose 124 H (65-100) mg/dL POC Glucose (70-105) Ammonia 86.0 H (25-60) umol/L
[2017-03-09] MEDS: ROCEPHIN/NS 1 GM/50 ML 1 GM/50 ML BAG IV SCH (22:49)
[2017-03-09] MEDS: DESYREL PO SCH (22:50)
[2017-03-10] MEDS: SINEMET PO SCH ×2 (05:36→13:37)
[2017-03-10] MEDS: REGLAN PO SCH ×2 (05:36→13:37)
[2017-03-10] MEDS: CEPHULAC PO SCH ×4 (05:36→14:09)
[2017-03-10] MEDS: NOVOLOG SUB-Q SCH ×2 (07:50→17:29)
[2017-03-10] MEDS: DIABETA PO SCH (08:23)
[2017-03-10] MEDS: HEPARIN SUB-Q SCH (09:13)
[2017-03-10] MEDS: THERAGRAN-M Tab PO SCH (09:13)
[2017-03-10] MEDS: WELLBUTRIN XL PO SCH (09:13)
[2017-03-10] MEDS: DOLOPHINE PO SCH (09:13)
[2017-03-10] MEDS: ZOLOFT PO SCH (09:15)
[2017-03-10] MEDS: FLEXERIL PO SCH (09:15)
[2017-03-10] MEDS: PROTONIX PO SCH (09:15)
[2017-03-10] MEDS: ALDACTONE PO SCH (09:17)
[2017-03-10 10:48] LABS: Anion Gap 17 mmol/L; Blood Urea Nitrogen 10 mg/dL (7-17); Calcium 8.5 mg/dL (8.4-10.2); Carbon Dioxide 23 mmol/L (22-30); Chloride 103.3 mmol/L (98-107); Glucose 195 mg/dL (65-100); Potassium 4.7 mmol/L (3.6-5.0); Sodium 139 mmol/L (137-145)
[2017-03-10 15:09] VITALS: BP 111/60
--- NOTE | 2017-03-10 15:23 | Discharge Summary ---
Providers - Providers Date of Admission: 03/08/17 03:13 Date of discharge: 03/10/17 Attending physician: BAL HORAN 03/09/17 14:53 Physical Therapy Evaluation and Treat [CONS] Routine Comment: Reason For Exam: placement Primary care physician: OFFICE ADMIN Hospitalization Reason for admission: altered mental status Condition: Fair Pertinent studies: Head CT on 03/08/2017 showed chronic involutional changes no skull fracture no intracranial hemorrhage. Cervical spinal CT on 03/08/2017 showed no significant abnormality Chest x-ray 03/07/2017 showed no acute cardiopulmonary process. Hospital course: This is a 66-year-old female with past medical history of diabetes, hepatitis C. presented from a local [facility] to the ER for evaluation of altered mental status, delirium, decreased responsiveness. There was a report from the [facility] that patient fell some time in the last few days but does not remember how she fell. In the ER patient noted to have high ammonia level and UTI. Discharge diagnosis and management: Acute toxic and metabolic encephalopathy - due to UTI and high ammonia level -Patient was treated for underlying cause - Patient was at her baseline MENTAL status before discharge, and this was verified with her [id number] at bedside Diabetes mellitus type 2 -Continued on ADA diet and sliding scale of insulin Hyperammonemia - Placed on lactulose and ammonia level monitored, Chronic liver disease with hepatitis C - Monitored LFT and that was stable UTI -Treated with IV ceftriaxone History of fall -[facility] - We'll get physical therapy at the facility Hyperkalemia, resolved DVT prophylaxis - Placed on Lovenox Disposition: [id number] [facility] Time spent for discharge: 32 minutes Core Measure Documentation - Palliative Care Palliative Care/ Comfort Measures: Not Applicable - Core Measures Any of the following diagnoses?: none Exam - Physical Exam Narrative exam: GENERAL: well-developed and well-nourished white female lying on bed appeared to be in no discomfort. HEENT: Normocephalic. Atraumatic. No conjunctival congestion or icterus. Patient has dry mucous membranes with cracked lips. NECK: Supple. Trachea midline. CHEST/LUNGS: Clear to auscultated bilaterally, breathing nonlabored. No wheezes crackles or rhonchi. HEART/CARDIOVASCULAR: Regular in rate and rhythm. S1 and S2 positive. ABDOMEN: Abdomen is soft, nontender. Patient has normal bowel sounds. SKIN: There is no rash. Warm and dry. NEURO: Follows command. MUSCULOSKELETAL: No joint effusion or tenderness. EXTRIMITY: No edema, no cyanosis or clubbing. PSYCH: Cooperative. - Constitutional Vitals: Temp Pulse Resp BP Pulse Ox 98.8 F 97 H 18 111/60 96 03/10/17 15:08 03/10/17 15:08 03/10/17 15:08 03/10/17 15:08 03/10/17 15:08 Plan Activity: advance as tolerated Weight Bearing Status: Non-Weight Bearing Diet: per dietitian instruction Follow up with: PRIMARY CARE, [Primary Care Provider] - 3-5 Days Prescriptions: Lactulose [Cephulac] 30 gm PO Q6HR 30 Days Levofloxacin [Levaquin TAB] 500 mg PO QDAY #3 tablet
== END 2017-03-10 20:54 | DRG 689 ==
LOC: ED 22:54 → 4A 03-08 03:13
PROVIDERS: ADMIT Internal Medicine; ATTEND Internal Medicine
DX: N39.0 Urinary tract infection, site not specified (principal); G92 Toxic encephalopathy; K72.90 Hepatic failure, unspecified without coma; E11.9 Type 2 diabetes mellitus without complications; K76.1 Chronic passive congestion of liver; B18.2 Chronic viral hepatitis C; Z90.710 Acquired absence of both cervix and uterus
CPT/HCPCS: 36415; 70450; 71010; 72125; 80048; 80053; 80307; 80320; 81001; 82140; 82550; 82962; 84443; 84484; 85025; 85610; 85730; 87086; 93005; 93010; 96361; 96365; G0480; G8978-GP; G8979-GP; J0696; J1644; J1815; J7030

== ENCOUNTER 2017-06-14 12:59 | Inpatient (IN) | payer MEDICARE ==
[2017-06-14 14:40] LABS: Basophils % (Auto) 1.6 % (0.0-1.8); Eosinophils % (Auto) 0.1 % (0.0-4.3); Hematocrit 21.9 % (30.3-42.9); Hemoglobin 6.4 gm/dl (10.1-14.3); Mean Corpuscular HGB Conc 29 % (30-34); Mean Corpuscular Volume 73 fl (79-97); Red Blood Count 3.02 M/mm3 (3.65-5.03); Red Cell Distribution Width 18.5 % (13.2-15.2); White Blood Count 7.4 K/mm3 (4.5-11.0)
[2017-06-14] MEDS ORDERED: NACL 0.9% 1000 ML 1,000 ML IV ONE (14:43)
--- NOTE | 2017-06-14 14:48 | Emergency Department Report ---
HPI - General Chief Complaint: Altered Mental Status Time Seen by Provider: 06/14/17 14:32 - HPI HPI: Room 4 The patient is a 66-year-old female presents with a chief complaint of altered mental status. The patient is a resident at [facility] was reported to have increased lethargy by staff. EMS reported the patient was mildly hypotensive at 90/palp. The patient seems slow to respond but does answer questions. Patient denies pain of any type. Patient does admit to shortness of breath and occasional cough for the past 2 weeks. Patient denies dysuria or fever. Patient was to nausea but denies vomiting. When asked was been bothering her the patient states "I've been having a lot of nausea and stuff." Location: [See above] Duration: Unknown Quality: Nausea Severity: Moderate Modifying factors: Unknown Context: [see above] Mode of transportation: [not driving] ED Past Medical Hx - Past Medical History Hx Hypertension: Yes Hx Diabetes: Yes Hx Liver Disease: Yes (hepatitis C) Hx Psychiatric Treatment: Yes (major depressive disorder) Hx COPD: Yes - Surgical History Additional Surgical History: hyst - Family History Family history: no significant - Social History Smoking Status: Unknown if ever smoked - Medications Home Medications: Home Medications Medication Instructions Recorded Confirmed Last Taken Type Aspirin [Aspirin TAB] 325 mg PO Q6HR PRN 01/10/17 03/08/17 Unknown History Bisacodyl [Dulcolax suppos] 10 mg [place] ONCE PRN 01/10/17 03/08/17 Unknown History Carbidopa/Levodopa 10-100 [Sinemet 1 tab PO Q8H 01/10/17 03/08/17 03/07/17 History 10/100] Cyclobenzaprine [Flexeril 10 MG 10 mg PO BID 01/10/17 03/08/17 03/07/17 History TAB] HYDROcodone/APAP 5-325 [[place] 1 each PO Q4HR PRN 01/10/17 03/08/17 Unknown History 5-325 mg TAB] Insulin Aspart [NovoLOG Flexpen] 1 unit SQ BID 01/10/17 03/08/17 03/07/17 History Insulin NPH/Regular [NovoLIN 70/30] 30 unit SQ QDAC 01/10/17 03/08/17 03/07/17 History Linaclotide (Nf) [Linzess (Nf)] 290 mcg PO QDAY 01/10/17 03/08/17 01/09/17 History Methadone [Dolophine] 15 mg PO QAM 01/10/17 03/08/17 03/07/17 History Metoclopramide HCl [Metoclopramide 10 mg PO Q8H 01/10/17 03/08/17 03/07/17 History HCl Odt] Multivit with Calcium,Iron,Min 1 tab PO DAILY 01/10/17 03/08/17 03/07/17 History [Multiple Vitamins For Women] Omeprazole Magnesium [PriLOSEC Otc] 20 mg PO QAM 01/10/17 03/08/17 03/07/17 History Sertraline [Zoloft] 100 mg PO QAM 01/10/17 03/08/17 03/07/17 History Spironolactone [Aldactone] 50 mg PO BID 01/10/17 03/08/17 03/07/17 History buPROPion XL [Wellbutrin XL] 150 mg PO QAM 01/10/17 03/08/17 01/09/17 History glyBURIDE [Diabeta] 2.5 mg PO DAILY 01/10/17 03/08/17 03/07/17 History guaiFENesin/DEXTROMETHORPHAN 10 ml PO TID PRN 01/10/17 03/08/17 Unknown History [Robitussin Cough-Chest Dm Liq] traZODone [Desyrel] 50 mg PO QHS 01/10/17 03/08/17 03/06/17 History Lactulose [Cephulac] 30 gm PO Q6HR 30 Days oral.liqd 03/10/17 Unknown Rx Levofloxacin [Levaquin TAB] 500 mg PO QDAY #3 tablet 03/10/17 Unknown Rx ED Review of Systems ROS: Stated complaint: AMS/WEAKNESS Other details as noted in HPI Constitutional: other (lethargy). denies: fever Eyes: denies: eye pain ENT: denies: ear pain Respiratory: cough, shortness of breath Cardiovascular: denies: chest pain Gastrointestinal: nausea. denies: abdominal pain, vomiting Genitourinary: denies: dysuria Musculoskeletal: denies: back pain Neurological: denies: headache Physical Exam - Physical Exam Vital Signs: Vital Signs 06/14/17 13:32 Temperature 98.4 F Pulse Rate 107 H Respiratory 19 Rate Blood Pressure 108/67 O2 Sat by Pulse 97 Oximetry Physical Exam: GENERAL: The patient is well-developed well-nourished female lying on stretcher slow to respond but answers questions appropriately. [] HEENT: Normocephalic. Atraumatic. Extraocular motions are intact. PERRL NECK: Supple. Trachea midline CHEST/LUNGS: Clear to auscultation. There is no respiratory distress noted. HEART/CARDIOVASCULAR: Regular. There is tachycardia. There is no gallop rub or murmur. ABDOMEN: Abdomen is soft, nontender. Patient has normal bowel sounds. There is no abdominal distention. SKIN: There is no rash. There is no diaphoresis. NEURO: The patient is awake but somewhat lethargic. The patient is cooperative. The patient has no focal neurologic deficits. The patient has normal speech. Cranial nerves II through XII grossly intact, no drift MUSCULOSKELETAL: There is no evidence of acute injury. ED Course Vital Signs 06/14/17 13:32 Temperature 98.4 F Pulse Rate 107 H Respiratory 19 Rate Blood Pressure 108/67 O2 Sat by Pulse 97 Oximetry ED Medical Decision Making - Lab Data Result diagrams: 06/14/17 14:02 06/14/17 14:02 Laboratory Tests 06/14/17 06/14/17 06/14/17 14:02 14:02 14:02 WBC 7.4 RBC 3.02 L Hgb 6.4 L Hct 21.9 L MCV 73 L MCH 21 L MCHC 29 L RDW 18.5 H Plt Count 96 L Lymph % (Auto) 11.7 L [place] % (Auto) 8.3 H Eos % (Auto) 0.1 Baso % (Auto) 1.6 Lymph # 0.9 L [place] # 0.6 Eos # 0.0 Baso # 0.1 Seg Neutrophils % 78.3 H Seg Neutrophils # 5.8 Sodium 135 L Potassium 4.7 Chloride 98.9 Carbon Dioxide 21 L Anion Gap 20 BUN 23 H Creatinine 0.7 Estimated GFR > 60 BUN/Creatinine Ratio 33 Glucose 130 H POC Glucose Lactic Acid 1.40 Calcium 8.6 Magnesium 2.00 Total Bilirubin 1.10 AST 37 ALT 14 Alkaline Phosphatase 111 Ammonia Total Creatine Kinase CK-MB (CK-2) CK-MB (CK-2) Rel Index Troponin T Total Protein 7.1 Albumin 3.7 L Albumin/Globulin Ratio 1.1 TSH Urine Color Urine Turbidity Urine pH Ur Specific [place] Urine Protein Urine Glucose (UA) Urine Ketones Urine Blood Urine Nitrite Urine Bilirubin Urine Urobilinogen Ur Leukocyte Esterase Urine WBC (Auto) Urine RBC (Auto) U Epithel Cells (Auto) Urine Bacteria (Auto) Amorphous Crystals Urine Mucus Salicylates Urine Opiates Screen Urine Methadone Screen Acetaminophen Ur Barbiturates Screen Ur Phencyclidine Scrn Ur Amphetamines Screen U Benzodiazepines Scrn Urine Cocaine Screen U Marijuana (THC) Screen Drugs of Abuse Note Plasma/Serum Alcohol 06/14/17 06/14/17 06/14/17 14:02 14:02 14:02 WBC RBC Hgb Hct MCV MCH MCHC RDW Plt Count Lymph % (Auto) [place] % (Auto) Eos % (Auto) Baso % (Auto) Lymph # [place] # Eos # Baso # Seg Neutrophils % Seg Neutrophils # Sodium Potassium Chloride Carbon Dioxide Anion Gap BUN Creatinine Estimated GFR BUN/Creatinine Ratio Glucose POC Glucose Lactic Acid Calcium Magnesium Total Bilirubin AST ALT Alkaline Phosphatase Ammonia Total Creatine Kinase CK-MB (CK-2) CK-MB (CK-2) Rel Index Troponin T Total Protein Albumin Albumin/Globulin Ratio TSH 1.970 Urine Color Urine Turbidity Urine pH Ur Specific [place] Urine Protein Urine Glucose (UA) Urine Ketones Urine Blood Urine Nitrite Urine Bilirubin Urine Urobilinogen Ur Leukocyte Esterase Urine WBC (Auto) Urine RBC (Auto) U Epithel Cells (Auto) Urine Bacteria (Auto) Amorphous Crystals Urine Mucus Salicylates < 0.3 L Urine Opiates Screen Urine Methadone Screen Acetaminophen < 15.0 Ur Barbiturates Screen Ur Phencyclidine Scrn Ur Amphetamines Screen U Benzodiazepines Scrn Urine Cocaine Screen U Marijuana (THC) Screen Drugs of Abuse Note Plasma/Serum Alcohol 06/14/17 06/14/17 06/14/17 14:02 14:34 14:49 WBC RBC Hgb Hct MCV MCH MCHC RDW Plt Count Lymph % (Auto) [place] % (Auto) Eos % (Auto) Baso % (Auto) Lymph # [place] # Eos # Baso # Seg Neutrophils % Seg Neutrophils # Sodium Potassium Chloride Carbon Dioxide Anion Gap BUN Creatinine Estimated GFR BUN/Creatinine Ratio Glucose POC Glucose 155 H Lactic Acid Calcium Magnesium Total Bilirubin AST ALT Alkaline Phosphatase Ammonia Total Creatine Kinase CK-MB (CK-2) CK-MB (CK-2) Rel Index Troponin T Total Protein Albumin Albumin/Globulin Ratio TSH Urine Color [place] Urine Turbidity Clear Urine pH 5.0 Ur Specific [place] 1.020 Urine Protein <15 mg/dl Urine Glucose (UA) Neg Urine Ketones Neg Urine Blood Neg Urine Nitrite Neg Urine Bilirubin Neg Urine Urobilinogen 4.0 Ur Leukocyte Esterase Tr Urine WBC (Auto) 15.0 H Urine RBC (Auto) 4.0 U Epithel Cells (Auto) 1.0 Urine Bacteria (Auto) 4+ Amorphous Crystals Few Urine Mucus 2+ Salicylates Urine Opiates Screen Urine Methadone Screen Acetaminophen Ur Barbiturates Screen Ur Phencyclidine Scrn Ur Amphetamines Screen U Benzodiazepines Scrn Urine Cocaine Screen U Marijuana (THC) Screen Drugs of Abuse Note Plasma/Serum Alcohol < 0.01 06/14/17 06/14/17 06/14/17 14:49 14:55 14:55 WBC RBC Hgb Hct MCV MCH MCHC RDW Plt Count Lymph % (Auto) [place] % (Auto) Eos % (Auto) Baso % (Auto) Lymph # [place] # Eos # Baso # Seg Neutrophils % Seg Neutrophils # Sodium Potassium Chloride Carbon Dioxide Anion Gap BUN Creatinine Estimated GFR BUN/Creatinine Ratio Glucose POC Glucose Lactic Acid 1.30 Calcium Magnesium Total Bilirubin AST ALT Alkaline Phosphatase Ammonia 142.0 H Total Creatine Kinase CK-MB (CK-2) CK-MB (CK-2) Rel Index Troponin T Total Protein Albumin Albumin/Globulin Ratio TSH Urine Color Urine Turbidity Urine pH Ur Specific [place] Urine Protein Urine Glucose (UA) Urine Ketones Urine Blood Urine Nitrite Urine Bilirubin Urine Urobilinogen Ur Leukocyte Esterase Urine WBC (Auto) Urine RBC (Auto) U Epithel Cells (Auto) Urine Bacteria (Auto) Amorphous Crystals Urine Mucus Salicylates Urine Opiates Screen Presumptive negative Urine Methadone Screen Presumptive positive Acetaminophen Ur Barbiturates Screen Presumptive negative Ur Phencyclidine Scrn Presumptive negative Ur Amphetamines Screen Presumptive positive U Benzodiazepines Scrn Presumptive negative Urine Cocaine Screen Presumptive negative U Marijuana (THC) Screen Presumptive negative Drugs of Abuse Note Disclamer Plasma/Serum Alcohol 06/14/17 14:55 WBC RBC Hgb Hct MCV MCH MCHC RDW Plt Count Lymph % (Auto) [place] % (Auto) Eos % (Auto) Baso % (Auto) Lymph # [place] # Eos # Baso # Seg Neutrophils % Seg Neutrophils # Sodium Potassium Chloride Carbon Dioxide Anion Gap BUN Creatinine Estimated GFR BUN/Creatinine Ratio Glucose POC Glucose Lactic Acid Calcium Magnesium Total Bilirubin AST ALT Alkaline Phosphatase Ammonia Total Creatine Kinase 29 L CK-MB (CK-2) < 1.0 CK-MB (CK-2) Rel Index 3.4 Troponin T < 0.010 Total Protein Albumin Albumin/Globulin Ratio TSH Urine Color Urine Turbidity Urine pH Ur Specific [place] Urine Protein Urine Glucose (UA) Urine Ketones Urine Blood Urine Nitrite Urine Bilirubin Urine Urobilinogen Ur Leukocyte Esterase Urine WBC (Auto) Urine RBC (Auto) U Epithel Cells (Auto) Urine Bacteria (Auto) Amorphous Crystals Urine Mucus Salicylates Urine Opiates Screen Urine Methadone Screen Acetaminophen Ur Barbiturates Screen Ur Phencyclidine Scrn Ur Amphetamines Screen U Benzodiazepines Scrn Urine Cocaine Screen U Marijuana (THC) Screen Drugs of Abuse Note Plasma/Serum Alcohol - EKG Data -: EKG Interpreted by Me EKG shows normal: sinus rhythm Rate: tachycardia (106 bpm) - EKG Data When compared to previous EKG there are: previous EKG unavailable Interpretation: other (no ischemic changes seen) - Radiology Data Radiology results: report reviewed (CT head), image reviewed (CT head, chest x- ray) interpreted by me: Chest x-ray-no definite focal infiltrates, no pneumothorax FINAL REPORT PROCEDURE: CT head without contrast. TECHNIQUE: Computerized tomography of the head was performed without contrast material. HISTORY: Altered mental status. COMPARISON: CT head 03/07/2017. FINDINGS: There is moderate cerebral atrophy. The garvey matter and white matter appear normal. There are no mass lesions. There is no intracranial hemorrhage. The calvarium appears intact. The mastoid air cells are clear. There is a large mucous retention cyst in the left maxillary sinus. IMPRESSION: Moderate cerebral atrophy. Chronic left maxillary sinusitis. Transcribed By: MRM Dictated By: JOI GRIFFITH MD Electronically Authenticated By: JOI GRIFFITH MD Signed Date/Time: 06/14/171254 DD/ 54 TD/TT: 06/14/171254 - Differential Diagnosis UTI, pneumonia, hepatic encephalopathy, ACS, rhabdomyolysis, ICH Critical care attestation.: If time is entered above; I have spent that time in minutes in the direct care of this critically ill patient, excluding procedure time. ED Disposition Clinical Impression: Hepatic encephalopathy, Anemia, Altered mental status, UTI (urinary tract infection) Disposition: OP ADMIT IP TO THIS HOSP Is pt being admited?: Yes Does the pt Need Aspirin: No Condition: Fair Referrals: PRIMARY CARE, [Primary Care Provider] - 3-5 Days Time of Disposition: 17:04 (hospitalist paged (Dr Lomeli))
[2017-06-14 14:51] LABS: Urine Drugs of Abuse Note Disclamer
[2017-06-14 14:57] LABS: Mean Corpuscular Hemoglobin 21 pg (28-32); Platelet Count 96 K/mm3 (140-440)
[2017-06-14 14:59] LABS: Alanine Aminotransferase 14 units/L (7-56); Albumin 3.7 g/dL (3.9-5); Albumin/Globulin Ratio 1.1 %; Alkaline Phosphatase 111 units/L (35-129); Anion Gap 20 mmol/L; BUN/Creatinine Ratio 33; Blood Urea Nitrogen 23 mg/dL (7-17); Calcium 8.6 mg/dL (8.4-10.2); Carbon Dioxide 21 mmol/L (22-30); Chloride 98.9 mmol/L (98-107); Glucose 130 mg/dL (65-100); Potassium 4.7 mmol/L (3.6-5.0); Sodium 135 mmol/L (137-145); Total Protein 7.1 g/dL (6.3-8.2)
[2017-06-14 15:00] LABS: Bacteria,Urine 4+ /HPF (Negative); Bilirubin,Urine NEG (Negative); Blood,Urine NEG (Negative); Ketones,Urine NEG (Negative); Leukocyte Esterase,Urine TR (Negative); Mucus,Urine 2+ /HPF; Nitrite,Urine NEG (Negative); Protein,Urine <15 mg/dL mg/dL (Negative)
[2017-06-14 15:47] LABS: Creatine Kinase 29 units/L (30-135)
[2017-06-14 15:49] LABS: Creatine Kinase MB < 1.0 ng/mL (0.0-4.0)
[2017-06-14] MEDS ORDERED: CEPHULAC PO ONE (16:36)
[2017-06-14] MEDS ORDERED: NACL 0.9% 500 ML 500 ML IV ONE (16:38)
--- NOTE | 2017-06-14 16:58 | Cat Scan Report ---
FINAL REPORT PROCEDURE: CT head without contrast. TECHNIQUE: Computerized tomography of the head was performed without contrast material. HISTORY: Altered mental status. COMPARISON: CT head 03/07/2017. FINDINGS: There is moderate cerebral atrophy. The garvey matter and white matter appear normal. There are no mass lesions. There is no intracranial hemorrhage. The calvarium appears intact. The mastoid air cells are clear. There is a large mucous retention cyst in the left maxillary sinus. IMPRESSION: Moderate cerebral atrophy. Chronic left maxillary sinusitis.
[2017-06-14] MEDS ORDERED: LEVAQUIN PO ONE (18:00)
--- NOTE | 2017-06-14 21:30 | History and Physical Report ---
History of Present Illness Date of admission: 06/14/17 17:39 Chief complaint: confusion History of present illness: 66 YO Female SNF Resident at [facility] with HTN, DM, HCV, Depression, Dementia, COPD presents to ED for evaluation. Pt confused, and lethargic on exam and in unable to provide history. Pt history taken from SNF Staff, as well as ED staff and medical record. Pt was reported by SNF staff to have increased lethargy, and confusion by staff. EMS notified, and upon arrival EMS found that the patient was mildly hypotensive with systolic BP in the 90's. The patient was transported to [facility] for further evaluation. Pt seen and evaluated in ED and found to be confused and lethargic but is able to protect her airway. Pt also found to have UTI. No reports of fever, chills, CP, Palpitations, NVD, Trauma, BRBPR, Vertigo, Productive cough, skin rash, loss of bowel/bladder continence, hematuria, hemoptysis, or recent ill contacts. Past History Past Medical History: diabetes, hepatitis, hypertension, other (Dementia,) Past Surgical History: hysterectomy Social history: Family history: diabetes, hypertension Medications and Allergies Allergies Allergy/AdvReac Type Severity Reaction Status Date / Time No Known Allergies Allergy Verified 03/07/17 23:29 Home Medications Medication Instructions Recorded Confirmed Last Taken Type Bisacodyl [Dulcolax suppos] 10 mg [place] ONCE PRN 01/10/17 06/14/17 Unknown History Cyclobenzaprine [Flexeril 10 MG 10 mg PO BID 01/10/17 06/14/17 03/07/17 History TAB] HYDROcodone/APAP 5-325 [[place] 1 each PO Q4HR PRN 01/10/17 06/14/17 Unknown History 5-325 mg TAB] Insulin Aspart [NovoLOG Flexpen] 0 unit SQ BID 01/10/17 06/14/17 03/07/17 History Insulin NPH/Regular [NovoLIN 70/30] 30 unit SQ QDAC 01/10/17 06/14/17 03/07/17 History Methadone [Dolophine] 15 mg PO QAM 01/10/17 06/14/17 03/07/17 History Metoclopramide HCl [Metoclopramide 10 mg PO Q8H 01/10/17 06/14/17 03/07/17 History HCl Odt] Multivit with Calcium,Iron,Min 1 tab PO DAILY 01/10/17 06/14/17 03/07/17 History [Multiple Vitamins For Women] Omeprazole Magnesium [PriLOSEC Otc] 20 mg PO QAM 01/10/17 06/14/17 03/07/17 History Sertraline [Zoloft] 150 mg PO QAM 01/10/17 06/14/17 03/07/17 History Spironolactone [Aldactone] 50 mg PO BID 01/10/17 06/14/17 03/07/17 History buPROPion XL [Wellbutrin XL] 150 mg PO QAM 01/10/17 06/14/17 01/09/17 History glyBURIDE [Diabeta] 2.5 mg PO DAILY 01/10/17 06/14/17 03/07/17 History guaiFENesin/DEXTROMETHORPHAN 10 ml PO TID PRN 01/10/17 06/14/17 Unknown History [Robitussin Cough-Chest Dm Liq] traZODone [Desyrel] 50 mg PO QHS 01/10/17 06/14/17 03/06/17 History Review of Systems ROS unobtainable: due to mental status Exam - Constitutional Vitals: Temp Pulse Resp BP Pulse Ox 98.4 F 107 H 14 118/60 100 06/14/17 19:05 06/14/17 19:05 06/14/17 19:05 06/14/17 19:05 06/14/17 19:05 General appearance: Present: mild distress, disheveled - EENT Eyes: Present: PERRL ENT: hearing intact, clear oral mucosa - Neck Neck: Present: supple, normal ROM - Respiratory Respiratory effort: normal Respiratory: bilateral: CTA - Cardiovascular Heart Sounds: Present: S1 & S2. Absent: rub, click - Extremities Extremities: pulses symmetrical, No edema Extremity abnormal: edema Peripheral Pulses: within normal limits - Abdominal General gastrointestinal: Present: soft, non-tender, non-distended, normal bowel sounds Female genitourinary: Present: normal - Integumentary Integumentary: Present: clear, dry, clammy, decreased turgor - Musculoskeletal Musculoskeletal: generalized weakness - Psychiatric Psychiatric: no intact judgment & insight, no memory intact - Neurologic Neurologic: moves all extremities, no gait normal Results - Labs CBC & Chem 7: 06/14/17 14:02 06/14/17 14:02 Labs: Abnormal lab results 06/14/17 06/14/17 06/14/17 Range/Units 14:02 14:02 14:02 RBC 3.02 L (3.65-5.03) M/mm3 Hgb 6.4 L (10.1-14.3) gm/dl Hct 21.9 L (30.3-42.9) % MCV 73 L (79-97) fl MCH 21 L (28-32) pg MCHC 29 L (30-34) % RDW 18.5 H (13.2-15.2) % Plt Count 96 L (140-440) K/mm3 Lymph % (Auto) 11.7 L (13.4-35.0) % [place] % (Auto) 8.3 H (0.0-7.3) % Lymph # 0.9 L (1.2-5.4) K/mm3 Seg Neutrophils % 78.3 H (40.0-70.0) % Sodium 135 L (137-145) mmol/L Carbon Dioxide 21 L (22-30) mmol/L BUN 23 H (7-17) mg/dL Glucose 130 H (65-100) mg/dL POC Glucose (70-105) Ammonia (25-60) umol/L Total Creatine Kinase (30-135) units/L Albumin 3.7 L (3.9-5) g/dL Urine WBC (Auto) (0.0-6.0) /HPF Salicylates < 0.3 L (2.8-20.0) mg/dL Crossmatch 06/14/17 06/14/17 06/14/17 Range/Units 14:34 14:49 14:55 RBC (3.65-5.03) M/mm3 Hgb (10.1-14.3) gm/dl Hct (30.3-42.9) % MCV (79-97) fl MCH (28-32) pg MCHC (30-34) % RDW (13.2-15.2) % Plt Count (140-440) K/mm3 Lymph % (Auto) (13.4-35.0) % [place] % (Auto) (0.0-7.3) % Lymph # (1.2-5.4) K/mm3 Seg Neutrophils % (40.0-70.0) % Sodium (137-145) mmol/L Carbon Dioxide (22-30) mmol/L BUN (7-17) mg/dL Glucose (65-100) mg/dL POC Glucose 155 H (70-105) Ammonia 142.0 H (25-60) umol/L Total Creatine Kinase (30-135) units/L Albumin (3.9-5) g/dL Urine WBC (Auto) 15.0 H (0.0-6.0) /HPF Salicylates (2.8-20.0) mg/dL Crossmatch 06/14/17 06/14/17 Range/Units 14:55 16:50 RBC (3.65-5.03) M/mm3 Hgb (10.1-14.3) gm/dl Hct (30.3-42.9) % MCV (79-97) fl MCH (28-32) pg MCHC (30-34) % RDW (13.2-15.2) % Plt Count (140-440) K/mm3 Lymph % (Auto) (13.4-35.0) % [place] % (Auto) (0.0-7.3) % Lymph # (1.2-5.4) K/mm3 Seg Neutrophils % (40.0-70.0) % Sodium (137-145) mmol/L Carbon Dioxide (22-30) mmol/L BUN (7-17) mg/dL Glucose (65-100) mg/dL POC Glucose (70-105) Ammonia (25-60) umol/L Total Creatine Kinase 29 L (30-135) units/L Albumin (3.9-5) g/dL Urine WBC (Auto) (0.0-6.0) /HPF Salicylates (2.8-20.0) mg/dL Crossmatch See Detail Assessment and Plan - Patient Problems (1) UTI (urinary tract infection) Current Visit: Yes Status: Acute Plan to address problem: IV abx, IVF resuscitation, supportive care, fall precautions. , monitor uop q shift. (2) Encephalopathy Current Visit: Yes Status: Acute Plan to address problem: CT Head, Neuro checks,ammonia level, fall precautions, aspiration precautions, (3) Hyperammonemia Current Visit: Yes Status: Acute Plan to address problem: IVF resuscitation, supportive care, repeat ammonia level if no improvement, or worsening cognition. (4) Symptomatic anemia Current Visit: Yes Status: Acute Plan to address problem: PRBC transfusion, stool for occult blood, CT Abdomen and pelvis to assess for intra-abdominal pathology, or retroperitoneal fluid collection. (5) HTN (hypertension) Current Visit: Yes Status: Acute Plan to address problem: monitor bp q shift, continue medical management (6) Diabetes Current Visit: Yes Status: Acute Plan to address problem: ADA diet, insulin, accu check, (7) DVT prophylaxis Current Visit: Yes Status: Acute (8) Anemia Current Visit: Yes Status: Acute (9) UTI (urinary tract infection) Current Visit: Yes Status: Acute
[2017-06-14] MEDS ORDERED: DEXTROMETHORPHAN PO PRN (21:36)
[2017-06-14] MEDS ORDERED: DULCOLAX PR PRN (21:36)
[2017-06-14] MEDS ORDERED: GUAIFENESIN PO PRN (21:36)
[2017-06-14] MEDS: DESYREL PO SCH (22:35)
[2017-06-14] MEDS: ALDACTONE PO SCH (22:35)
[2017-06-14] MEDS: FLEXERIL PO SCH (22:35)
[2017-06-14] MEDS ORDERED: GUAIFENESIN DM SYRUP PO PRN (22:43)
--- NOTE | 2017-06-15 01:18 | Cat Scan Report ---
FINAL REPORT EXAM: CT ABDOMEN PELVIS W CON HISTORY: ab discomfort COMPARISON: January 2015 CT of the abdomen and pelvis. TECHNIQUE: Contiguous axial images were obtained. Additional sagittal and coronal reformatted images were Omnipaque 300. Enteric contrast administered. FINDINGS: Exam somewhat limited by patient respiratory motion. This could obscure subtle abnormality. Mild atelectasis at the lung bases. Tiny hiatal hernia. Cirrhotic changes of the liver. No focal enhancing hepatic mass. Portal vein remains patent. No calcified gallstones are gross biliary dilatation. The common bile duct measures 6-7 millimeters, upper limits normal for patient age. Mild enlargement of the spleen measuring 13 centimeters. Small to moderate amount of fluid at the margin of the liver and small amount of fluid at the margin of the spleen. No loculated collection or free air. Pancreas is unremarkable. Nodular thickening of adrenal glands. Right renal cyst measuring 2.0 x 1.4 centimeters. No solid renal lesion or hydronephrosis. Aorta and IVC normal in caliber. Moderate severe calcified plaque along the aorta. Urinary bladder is unremarkable. Uterus is surgically absent. Wall thickening of the cecum, ascending colon and proximal transverse colon. This is greater than expected for reactive wall thickening related to hypoproteinemia or portal hypertension. This is concerning for segmental colitis. No bowel obstruction. Appears to be in circumferential stool within the left colon. This creates the appearance of pseudo pneumatosis. No definite pneumatosis or free air. No gross inflammatory changes of the left colon. The appendix is not visualized. Mild to moderate degenerative changes of lumbar spine. Sclerosis along the femoral head without collapse of the femoral heads concerning for sequelae of prior AVN. IMPRESSION: Moderately prominent wall thickening of the right colon and transverse colon concerning for segmental colitis likely inflammatory infectious in etiology. The appendix is not visualized. No free air or bowel obstruction. Cirrhotic changes of the liver. No focal hepatic lesion. Small to moderate amount of ascites most pronounced along the margin of the liver. No loculated collection. No focal hepatic lesion. The portal vein remains patent.
--- NOTE | 2017-06-15 08:07 | Progress Note ---
Assessment and Plan Assessment and plan: --Toxic metabolic encephalopathy; multifactorial, secondary to urinary tract infection, hyperammonemia, symptomatic anemia Closely monitor, manage underlying causes --Possible segmental colitis on CT abdomen; managed with IV Levaquin and IV Flagyl, clear liquid diet Abdomen soft nontender on palpation, GI evaluation as needed --Symptomatic Severe anemia; received 2 units PRBC, monitor H&H and transfuse as needed Stool guaiac to rule out GI causes of anemia --Urinary tract infection; empiric antibiotics, IV hydration, follow cultures --Hypertension; continue current antihypertensives, when necessary medications --Hyperammonemia; chronic elevation of ammonia, normal LFTs, closely monitor --Type 2 diabetes mellitus; Accu-Chek sliding scale coverage ADA diet and insulin as needed --DVT prophylaxis; SCD, --full CODE STATUS DC planning per case management History Interval history: Patient seen and examined, medical records reviewed Received 2 units of PRBC slight improvement of H&H CT scan consistent with segmental colitis No events reported by the nursing staff Hospitalist Physical - Constitutional Vitals: Temp Pulse Resp BP Pulse Ox 98.4 F 100 H 18 102/53 98 06/14/17 19:05 06/15/17 01:44 06/15/17 00:51 06/15/17 00:51 06/15/17 00:51 General appearance: Present: no acute distress, disheveled - EENT Eyes: Present: PERRL, EOM intact - Neck Neck: Present: supple, normal ROM - Respiratory Respiratory effort: normal Respiratory: bilateral: diminished, negative: rales, rhonchi, wheezing - Cardiovascular Rhythm: regular Heart Sounds: Present: S1 & S2 - Extremities Extremities: no ischemia, No edema - Abdominal General gastrointestinal: soft, non-tender, non-distended, normal bowel sounds - Integumentary Integumentary: Present: clear, warm - Psychiatric Psychiatric: other ( confused) - Neurologic Neurologic: moves all extremities Results - Labs CBC & Chem 7: 06/15/17 09:32 06/14/17 14:02 Labs: Laboratory Last Values WBC 7.4 K/mm3 (4.5-11.0) 06/14/17 14:02 RBC 3.02 M/mm3 (3.65-5.03) L 06/14/17 14:02 Hgb 6.4 gm/dl (10.1-14.3) L 06/14/17 14:02 Hct 21.9 % (30.3-42.9) L 06/14/17 14:02 MCV 73 fl (79-97) L 06/14/17 14:02 MCH 21 pg (28-32) L 06/14/17 14:02 MCHC 29 % (30-34) L 06/14/17 14:02 RDW 18.5 % (13.2-15.2) H 06/14/17 14:02 Plt Count 96 K/mm3 (140-440) L 06/14/17 14:02 Lymph % (Auto) 11.7 % (13.4-35.0) L 06/14/17 14:02 [place] % (Auto) 8.3 % (0.0-7.3) H 06/14/17 14:02 Eos % (Auto) 0.1 % (0.0-4.3) 06/14/17 14:02 Baso % (Auto) 1.6 % (0.0-1.8) 06/14/17 14:02 Lymph # 0.9 K/mm3 (1.2-5.4) L 06/14/17 14:02 [place] # 0.6 K/mm3 (0.0-0.8) 06/14/17 14:02 Eos # 0.0 K/mm3 (0.0-0.4) 06/14/17 14:02 Baso # 0.1 K/mm3 (0.0-0.1) 06/14/17 14:02 Seg Neutrophils % 78.3 % (40.0-70.0) H 06/14/17 14:02 Seg Neutrophils # 5.8 K/mm3 (1.8-7.7) 06/14/17 14:02 Sodium 135 mmol/L (137-145) L 06/14/17 14:02 Potassium 4.7 mmol/L (3.6-5.0) 06/14/17 14:02 Chloride 98.9 mmol/L (98-107) 06/14/17 14:02 Carbon Dioxide 21 mmol/L (22-30) L 06/14/17 14:02 Anion Gap 20 mmol/L 06/14/17 14:02 BUN 23 mg/dL (7-17) H 06/14/17 14:02 Creatinine 0.7 mg/dL (0.7-1.2) 06/14/17 14:02 Estimated GFR > 60 ml/min 06/14/17 14:02 BUN/Creatinine Ratio 33 % 06/14/17 14:02 Glucose 130 mg/dL (65-100) H 06/14/17 14:02 POC Glucose 155 (70-105) H 06/14/17 14:34 Lactic Acid 1.30 mmol/L (0.7-2.0) 06/14/17 14:55 Calcium 8.6 mg/dL (8.4-10.2) 06/14/17 14:02 Magnesium 2.00 mg/dL (1.7-2.3) 06/14/17 14:02 Total Bilirubin 1.10 mg/dL (0.1-1.2) 06/14/17 14:02 AST 37 units/L (5-40) 06/14/17 14:02 ALT 14 units/L (7-56) 06/14/17 14:02 Alkaline Phosphatase 111 units/L (35-129) 06/14/17 14:02 Ammonia 142.0 umol/L (25-60) H 06/14/17 14:55 Total Creatine Kinase 29 units/L (30-135) L 06/14/17 14:55 CK-MB (CK-2) < 1.0 ng/mL (0.0-4.0) 06/14/17 14:55 CK-MB (CK-2) Rel Index 3.4 (0-4) 06/14/17 14:55 Troponin T < 0.010 ng/mL (0.00-0.029) 06/14/17 14:55 Total Protein 7.1 g/dL (6.3-8.2) 06/14/17 14:02 Albumin 3.7 g/dL (3.9-5) L 06/14/17 14:02 Albumin/Globulin Ratio 1.1 % 06/14/17 14:02 TSH 1.970 mlU/mL (0.270-4.200) 06/14/17 14:02 Urine Color [place] (Yellow) 06/14/17 14:49 Urine Turbidity Clear (Clear) 06/14/17 14:49 Urine pH 5.0 (5.0-7.0) 06/14/17 14:49 Ur Specific [place] 1.020 (1.003-1.030) 06/14/17 14:49 Urine Protein <15 mg/dl mg/dL (Negative) 06/14/17 14:49 Urine Glucose (UA) Neg mg/dL (Negative) 06/14/17 14:49 Urine Ketones Neg mg/dL (Negative) 06/14/17 14:49 Urine Blood Neg (Negative) 06/14/17 14:49 Urine Nitrite Neg (Negative) 06/14/17 14:49 Urine Bilirubin Neg (Negative) 06/14/17 14:49 Urine Urobilinogen 4.0 mg/dL (<2.0) 06/14/17 14:49 Ur Leukocyte Esterase Tr (Negative) 06/14/17 14:49 Urine WBC (Auto) 15.0 /HPF (0.0-6.0) H 06/14/17 14:49 Urine RBC (Auto) 4.0 /HPF (0.0-6.0) 06/14/17 14:49 U Epithel Cells (Auto) 1.0 /HPF (0-13.0) 06/14/17 14:49 Urine Bacteria (Auto) 4+ /HPF (Negative) 06/14/17 14:49 Amorphous Crystals Few 06/14/17 14:49 Urine Mucus 2+ /HPF 06/14/17 14:49 Salicylates < 0.3 mg/dL (2.8-20.0) L 06/14/17 14:02 Urine Opiates Screen Presumptive negative 06/14/17 14:49 Urine Methadone Screen Presumptive positive 06/14/17 14:49 Acetaminophen < 15.0 ug/mL (10.0-30.0) 06/14/17 14:02 Ur Barbiturates Screen Presumptive negative 06/14/17 14:49 Ur Phencyclidine Scrn Presumptive negative 06/14/17 14:49 Ur Amphetamines Screen Presumptive positive 06/14/17 14:49 U Benzodiazepines Scrn Presumptive negative 06/14/17 14:49 Urine Cocaine Screen Presumptive negative 06/14/17 14:49 U Marijuana (THC) Screen Presumptive negative 06/14/17 14:49 Drugs of Abuse Note Disclamer 06/14/17 14:49 Plasma/Serum Alcohol < 0.01 gm% (0-0.07) 06/14/17 14:02 Blood Type O POSITIVE 06/14/17 16:50 Antibody Screen Negative 06/14/17 16:50 Crossmatch See Detail 06/14/17 16:50
[2017-06-15 09:54] LABS: Hemoglobin 8.3 gm/dl (10.1-14.3); Mean Corpuscular HGB Conc 31 % (30-34); Mean Corpuscular Volume 76 fl (79-97); Red Blood Count 3.54 M/mm3 (3.65-5.03); White Blood Count 7.1 K/mm3 (4.5-11.0)
[2017-06-15 09:55] LABS: Mean Corpuscular Hemoglobin 24 pg (28-32); Platelet Count 69 K/mm3 (140-440); Red Cell Distribution Width 20.2 % (13.2-15.2)
[2017-06-15] MEDS ORDERED: MULTIVIT WITH CALCIUM IRON MIN PO SCH (10:00)
[2017-06-15] MEDS ORDERED: NON-FORMULARY (Omeprazole Magnesium [Prilosec Otc] 20 MG) PO SCH (10:00)
--- NOTE | 2017-06-15 10:22 | XRay Report ---
CHEST ONE VIEW INDICATION: Cough, altered mental status. COMPARISON: 03/07/2017. FINDINGS: Portable, single, frontal chest radiograph demonstrates normal cardiomediastinal silhouette. Lungs clearer. Unremarkable bones. Extrinsic EKG leads. CONCLUSION: No acute disease in the chest. Thank you for the opportunity to participate in this patient's care.
[2017-06-15] MEDS: WELLBUTRIN XL PO SCH (10:33)
[2017-06-15] MEDS: THERAGRAN-M Tab PO SCH (10:33)
[2017-06-15] MEDS: FLEXERIL PO SCH ×2 (10:34→22:14)
[2017-06-15] MEDS: ZOLOFT PO SCH (10:34)
[2017-06-15] MEDS: PROTONIX PO SCH (10:34)
[2017-06-15] MEDS: ALDACTONE PO SCH ×2 (10:35→22:14)
[2017-06-15] MEDS: LEVAQUIN 500MG/100ML 500 MG/100 ML BAG IV SCH (20:35)
[2017-06-15] MEDS: FLAGYL 500 MG/100 ML 500 MG/100 ML BAG IV SCH (20:40)
[2017-06-15] MEDS: DESYREL PO SCH (22:14)
[2017-06-16] MEDS: FLAGYL 500 MG/100 ML 500 MG/100 ML BAG IV SCH ×3 (04:29→20:53)
[2017-06-16 04:46] LABS: Eosinophils % (Auto) 0.7 % (0.0-4.3); Hematocrit 22.6 % (30.3-42.9); Hemoglobin 7.1 gm/dl (10.1-14.3); Mean Corpuscular HGB Conc 31 % (30-34); Mean Corpuscular Volume 77 fl (79-97); Red Blood Count 2.95 M/mm3 (3.65-5.03)
[2017-06-16 04:54] LABS: Mean Corpuscular Hemoglobin 24 pg (28-32); Platelet Count 59 K/mm3 (140-440)
[2017-06-16 05:05] LABS: Anion Gap 16 mmol/L; BUN/Creatinine Ratio 27; Blood Urea Nitrogen 19 mg/dL (7-17); Calcium 8.2 mg/dL (8.4-10.2); Carbon Dioxide 21 mmol/L (22-30); Chloride 103.5 mmol/L (98-107); Glucose 61 mg/dL (65-100); Potassium 4.2 mmol/L (3.6-5.0); Sodium 136 mmol/L (137-145)
--- NOTE | 2017-06-16 08:07 | Progress Note ---
Assessment and Plan Assessment and plan: --Hypoglycemic episode; hold morning insulin closely monitor --Symptomatic Severe anemia; received 2 units PRBC, monitor H&H and transfuse as needed Stool guaiac to rule out GI causes of anemia, hemoglobin trending down, GI evaluation --Toxic metabolic encephalopathy; multifactorial, secondary to urinary tract infection, hyperammonemia, symptomatic anemia Closely monitor, manage underlying causes --Possible segmental colitis on CT abdomen; managed with IV Levaquin and IV Flagyl, clear liquid diet Abdomen soft nontender on palpation, GI evaluation --Urinary tract infection; empiric antibiotics, IV hydration, follow cultures --Hypertension; continue current antihypertensives, when necessary medications --Hyperammonemia; chronic elevation of ammonia, normal LFTs, closely monitor --Type 2 diabetes mellitus; Accu-Chek sliding scale coverage ADA diet and insulin as needed --DVT prophylaxis; SCD, --full CODE STATUS Follow GI evaluation and recommendations, plan of care discussed with the patient, verbalized understanding History Interval history: Patient Seen and examined medical records reviewed Patient has mild drop in H&H post transfusion, external evidence of bleeding Patient feels slightly better, no new complaints Vital signs reviewed, tolerating oral nutrition Denies abdominal pain Hospitalist Physical - Constitutional Vitals: Temp Pulse Resp BP Pulse Ox 98.4 F 96 H 18 93/47 99 06/16/17 07:31 06/16/17 07:31 06/16/17 07:31 06/16/17 07:31 06/16/17 07:31 General appearance: Present: no acute distress, well-nourished, disheveled - EENT Eyes: Present: PERRL, EOM intact - Neck Neck: Present: supple, normal ROM - Respiratory Respiratory effort: normal Respiratory: bilateral: diminished, negative: rales, rhonchi, wheezing - Cardiovascular Rhythm: regular Heart Sounds: Present: S1 & S2 - Extremities Extremities: no ischemia, No edema Peripheral Pulses: within normal limits - Abdominal General gastrointestinal: soft, non-tender, non-distended, normal bowel sounds - Integumentary Integumentary: Present: clear, warm - Psychiatric Psychiatric: appropriate mood/affect, cooperative - Neurologic Neurologic: CNII-XII intact, moves all extremities Results - Labs CBC & Chem 7: 06/16/17 04:08 06/16/17 04:08 Labs: Laboratory Last Values WBC 5.0 K/mm3 (4.5-11.0) 06/16/17 04:08 RBC 2.95 M/mm3 (3.65-5.03) L 06/16/17 04:08 Hgb 7.1 gm/dl (10.1-14.3) L 06/16/17 04:08 Hct 22.6 % (30.3-42.9) L 06/16/17 04:08 MCV 77 fl (79-97) L 06/16/17 04:08 MCH 24 pg (28-32) L 06/16/17 04:08 MCHC 31 % (30-34) 06/16/17 04:08 RDW 20.0 % (13.2-15.2) H 06/16/17 04:08 Plt Count 59 K/mm3 (140-440) L 06/16/17 04:08 Lymph % (Auto) 16.7 % (13.4-35.0) 06/16/17 04:08 [place] % (Auto) 13.1 % (0.0-7.3) H 06/16/17 04:08 Eos % (Auto) 0.7 % (0.0-4.3) 06/16/17 04:08 Baso % (Auto) 1.0 % (0.0-1.8) 06/16/17 04:08 Lymph # 0.8 K/mm3 (1.2-5.4) L 06/16/17 04:08 [place] # 0.7 K/mm3 (0.0-0.8) 06/16/17 04:08 Eos # 0.0 K/mm3 (0.0-0.4) 06/16/17 04:08 Baso # 0.1 K/mm3 (0.0-0.1) 06/16/17 04:08 Seg Neutrophils % 68.5 % (40.0-70.0) 06/16/17 04:08 Seg Neutrophils # 3.5 K/mm3 (1.8-7.7) 06/16/17 04:08 Sodium 136 mmol/L (137-145) L 06/16/17 04:08 Potassium 4.2 mmol/L (3.6-5.0) 06/16/17 04:08 Chloride 103.5 mmol/L (98-107) 06/16/17 04:08 Carbon Dioxide 21 mmol/L (22-30) L 06/16/17 04:08 Anion Gap 16 mmol/L 06/16/17 04:08 BUN 19 mg/dL (7-17) H 06/16/17 04:08 Creatinine 0.7 mg/dL (0.7-1.2) 06/16/17 04:08 Estimated GFR > 60 ml/min 06/16/17 04:08 BUN/Creatinine Ratio 27 % 06/16/17 04:08 Glucose 61 mg/dL (65-100) L 06/16/17 04:08 POC Glucose 117 (70-105) H 06/15/17 16:26 Lactic Acid 1.30 mmol/L (0.7-2.0) 06/14/17 14:55 Calcium 8.2 mg/dL (8.4-10.2) L 06/16/17 04:08 Magnesium 1.90 mg/dL (1.7-2.3) 06/16/17 04:08 Total Bilirubin 1.10 mg/dL (0.1-1.2) 06/14/17 14:02 AST 37 units/L (5-40) 06/14/17 14:02 ALT 14 units/L (7-56) 06/14/17 14:02 Alkaline Phosphatase 111 units/L (35-129) 06/14/17 14:02 Ammonia 142.0 umol/L (25-60) H 06/14/17 14:55 Total Creatine Kinase 29 units/L (30-135) L 06/14/17 14:55 CK-MB (CK-2) < 1.0 ng/mL (0.0-4.0) 06/14/17 14:55 CK-MB (CK-2) Rel Index 3.4 (0-4) 06/14/17 14:55 Troponin T < 0.010 ng/mL (0.00-0.029) 06/14/17 14:55 Total Protein 7.1 g/dL (6.3-8.2) 06/14/17 14:02 Albumin 3.7 g/dL (3.9-5) L 06/14/17 14:02 Albumin/Globulin Ratio 1.1 % 06/14/17 14:02 TSH 1.970 mlU/mL (0.270-4.200) 06/14/17 14:02 Urine Color [place] (Yellow) 06/14/17 14:49 Urine Turbidity Clear (Clear) 06/14/17 14:49 Urine pH 5.0 (5.0-7.0) 06/14/17 14:49 Ur Specific [place] 1.020 (1.003-1.030) 06/14/17 14:49 Urine Protein <15 mg/dl mg/dL (Negative) 06/14/17 14:49 Urine Glucose (UA) Neg mg/dL (Negative) 06/14/17 14:49 Urine Ketones Neg mg/dL (Negative) 06/14/17 14:49 Urine Blood Neg (Negative) 06/14/17 14:49 Urine Nitrite Neg (Negative) 06/14/17 14:49 Urine Bilirubin Neg (Negative) 06/14/17 14:49 Urine Urobilinogen 4.0 mg/dL (<2.0) 06/14/17 14:49 Ur Leukocyte Esterase Tr (Negative) 06/14/17 14:49 Urine WBC (Auto) 15.0 /HPF (0.0-6.0) H 06/14/17 14:49 Urine RBC (Auto) 4.0 /HPF (0.0-6.0) 06/14/17 14:49 U Epithel Cells (Auto) 1.0 /HPF (0-13.0) 06/14/17 14:49 Urine Bacteria (Auto) 4+ /HPF (Negative) 06/14/17 14:49 Amorphous Crystals Few 06/14/17 14:49 Urine Mucus 2+ /HPF 06/14/17 14:49 Salicylates < 0.3 mg/dL (2.8-20.0) L 06/14/17 14:02 Urine Opiates Screen Presumptive negative 06/14/17 14:49 Urine Methadone Screen Presumptive positive 06/14/17 14:49 Acetaminophen < 15.0 ug/mL (10.0-30.0) 06/14/17 14:02 Ur Barbiturates Screen Presumptive negative 06/14/17 14:49 Ur Phencyclidine Scrn Presumptive negative 06/14/17 14:49 Ur Amphetamines Screen Presumptive positive 06/14/17 14:49 U Benzodiazepines Scrn Presumptive negative 06/14/17 14:49 Urine Cocaine Screen Presumptive negative 06/14/17 14:49 U Marijuana (THC) Screen Presumptive negative 06/14/17 14:49 Drugs of Abuse Note Disclamer 06/14/17 14:49 Plasma/Serum Alcohol < 0.01 gm% (0-0.07) 06/14/17 14:02 Blood Type O POSITIVE 06/14/17 16:50 Antibody Screen Negative 06/14/17 16:50 Crossmatch See Detail 06/14/17 16:50
--- NOTE | 2017-06-16 10:04 | Gastroenterology Consultation ---
<AMRITA LEMUS - Last Filed: 06/16/17 10:13> History of Present Illness - Reason for Consult Consult date: 06/16/17 segmental colitis, anemia Requesting physician: DOMINGO KRUEGER - History of Present Illness Patient is a 66 y/o female who resides at a SNF ([facility]) with PMH of HTN, DM, HCV, depression, dementia, and COPD who presented to the ED for an evaluation of confusion. She was found to have an UTI, anemia, and hyperammonemia on admission. Abd CT showed segmental colitis and cirrhosis. This morning pt was sitting up in bed eating breakfast with no acute distress. Pt noted to be confused (oriented to self only) upon exam and unable to provide history. No family at bedside, history obtained by chart review. Denies any fever, abd pain, N/V, jaundice, diarrhea, constipation, or signs of bleeding. No signs of bleeding noted per nursing since admission. Tolerating diet. Past History Past Medical History: diabetes, hepatitis, hypertension, other (Dementia,) Past Surgical History: hysterectomy Social history: Family history: diabetes, hypertension Medications and Allergies Allergies Allergy/AdvReac Type Severity Reaction Status Date / Time No Known Allergies Allergy Verified 03/07/17 23:29 Home Medications Medication Instructions Recorded Confirmed Last Taken Type Bisacodyl [Dulcolax suppos] 10 mg MA ONCE PRN 01/10/17 06/14/17 Unknown History Cyclobenzaprine [Flexeril 10 MG 10 mg PO BID 01/10/17 06/14/17 03/07/17 History TAB] HYDROcodone/APAP 5-325 [[place] 1 each PO Q4HR PRN 01/10/17 06/14/17 Unknown History 5-325 mg TAB] Insulin Aspart [NovoLOG Flexpen] 0 unit SQ BID 01/10/17 06/14/17 03/07/17 History Insulin NPH/Regular [NovoLIN 70/30] 30 unit SQ QDAC 01/10/17 06/14/17 03/07/17 History Methadone [Dolophine] 15 mg PO QAM 01/10/17 06/14/17 03/07/17 History Metoclopramide HCl [Metoclopramide 10 mg PO Q8H 01/10/17 06/14/17 03/07/17 History HCl Odt] Multivit with Calcium,Iron,Min 1 tab PO DAILY 01/10/17 06/14/17 03/07/17 History [Multiple Vitamins For Women] Omeprazole Magnesium [PriLOSEC Otc] 20 mg PO QAM 01/10/17 06/14/17 03/07/17 History Sertraline [Zoloft] 150 mg PO QAM 01/10/17 06/14/17 03/07/17 History Spironolactone [Aldactone] 50 mg PO BID 01/10/17 06/14/17 03/07/17 History buPROPion XL [Wellbutrin XL] 150 mg PO QAM 01/10/17 06/14/17 01/09/17 History glyBURIDE [Diabeta] 2.5 mg PO DAILY 01/10/17 06/14/17 03/07/17 History guaiFENesin/DEXTROMETHORPHAN 10 ml PO TID PRN 01/10/17 06/14/17 Unknown History [Robitussin Cough-Chest Dm Liq] traZODone [Desyrel] 50 mg PO QHS 01/10/17 06/14/17 03/06/17 History Active Meds: Active Medications Bisacodyl (Dulcolax) 10 mg MA QDAY PRN PRN Reason: Constipation Bupropion HCl (Wellbutrin Xl) 150 mg PO QAM [facility] Last Admin: 06/15/17 10:33 Dose: 150 mg Cyclobenzaprine HCl (Flexeril) 10 mg PO BID [facility] Last Admin: 06/15/17 22:14 Dose: 10 mg Guaifenesin (Guaifenesin Dm Syrup) 10 ml PO TID PRN PRN Reason: Cough Levofloxacin/Dextrose (Levaquin 500mg/100ml) 500 mg in 100 mls @ 100 mls/hr IV Q24H [facility] PRN Reason: Protocol Last Admin: 06/15/17 20:35 Dose: 100 mls/hr Metronidazole (Flagyl 500 Mg/100 Ml) 500 mg in 100 mls @ 100 mls/hr IV Q8H [facility] Last Admin: 06/16/17 04:29 Dose: 100 mls/hr Insulin Human Isoph/Insulin Regular (Novolin 70/30) 30 unit SUB-Q QDAC [facility] Last Admin: 06/15/17 08:43 Dose: Not Given Multivitamins/Minerals (Theragran-M Tab) 1 each PO QDAY [facility] Last Admin: 06/15/17 10:33 Dose: 1 each Pantoprazole Sodium (Protonix) 20 mg PO QAM [facility] Last Admin: 06/15/17 10:34 Dose: 20 mg Sertraline HCl (Zoloft) 150 mg PO QAM [facility] Last Admin: 06/15/17 10:34 Dose: 150 mg Spironolactone (Aldactone) 50 mg PO BID [facility] Last Admin: 06/15/17 22:14 Dose: 50 mg Trazodone HCl (Desyrel) 50 mg PO QHS [facility] Last Admin: 06/15/17 22:14 Dose: 50 mg Review of Systems - Review of Systems ROS unobtainable: due to mental status Exam - Constitutional Vital Signs: Temp Pulse Resp BP Pulse Ox 98.4 F 96 H 18 93/47 99 06/16/17 07:31 06/16/17 07:31 06/16/17 07:31 06/16/17 07:31 06/16/17 07:31 General appearance: no acute distress, well-nourished - Respiratory Respiratory: bilateral: CTA - Cardiovascular Rhythm: regular Heart Sounds: Present: S1 & S2 - Gastrointestinal General gastrointestinal: Present: soft, non-tender, non-distended, normal bowel sounds - Integumentary Integumentary: Present: warm, dry - Neurologic Neurological: oriented to person - Labs CBC & Chem 7: 06/16/17 04:08 06/16/17 04:08 Lab Results: Laboratory Results - last 24 hr 06/15/17 06/15/17 06/15/17 08:45 11:21 16:26 WBC RBC Hgb Hct MCV MCH MCHC RDW Plt Count Lymph % (Auto) [place] % (Auto) Eos % (Auto) Baso % (Auto) Lymph # [place] # Eos # Baso # Seg Neutrophils % Seg Neutrophils # Sodium Potassium Chloride Carbon Dioxide Anion Gap BUN Creatinine Estimated GFR BUN/Creatinine Ratio Glucose POC Glucose 85 106 H 117 H Calcium Magnesium 06/16/17 06/16/17 04:08 04:08 WBC 5.0 RBC 2.95 L Hgb 7.1 L Hct 22.6 L MCV 77 L MCH 24 L MCHC 31 RDW 20.0 H Plt Count 59 L Lymph % (Auto) 16.7 [place] % (Auto) 13.1 H Eos % (Auto) 0.7 Baso % (Auto) 1.0 Lymph # 0.8 L [place] # 0.7 Eos # 0.0 Baso # 0.1 Seg Neutrophils % 68.5 Seg Neutrophils # 3.5 Sodium 136 L Potassium 4.2 Chloride 103.5 Carbon Dioxide 21 L Anion Gap 16 BUN 19 H Creatinine 0.7 Estimated GFR > 60 BUN/Creatinine Ratio 27 Glucose 61 L POC Glucose Calcium 8.2 L Magnesium 1.90 Assessment and Plan 1.anemia 2.segmental colitis 3.HCV 4.cirrhosis 5.UTI 6.metabolic encephalopathy 7.hyperammonemia -HGB 7.1-trending down s/p transfusion of 2 units PRBCs -etiology of anemia unclear -no active signs of bleeding per nursing -continue to monitor H/H and transfuse as needed -hold blood thinning medications -segmental colitis-etiology unclear-will order stool studies, continue levaquin and flagyl -afebrile -WBC 5.0 -abd CT showed cirrhotic changes of the liver- most likely 2/2 HCV -plt 59, AST 37, ALT 14 -ammonia 142- will start on xifaxan -will order PT/INR -continue supportive care -will follow <AMERICO RUSH - Last Filed: 06/16/17 21:18> Medications and Allergies Active Meds: Active Medications Bisacodyl (Dulcolax) 10 mg MA QDAY PRN PRN Reason: Constipation Bupropion HCl (Wellbutrin Xl) 150 mg PO QAM [facility] Last Admin: 06/16/17 10:12 Dose: 150 mg Cyclobenzaprine HCl (Flexeril) 10 mg PO BID [facility] Last Admin: 06/16/17 10:13 Dose: 10 mg Guaifenesin (Guaifenesin Dm Syrup) 10 ml PO TID PRN PRN Reason: Cough Levofloxacin/Dextrose (Levaquin 500mg/100ml) 500 mg in 100 mls @ 100 mls/hr IV Q24H [facility] PRN Reason: Protocol Last Admin: 06/16/17 20:53 Dose: 100 mls/hr Metronidazole (Flagyl 500 Mg/100 Ml) 500 mg in 100 mls @ 100 mls/hr IV Q8H [facility] Last Admin: 06/16/17 20:53 Dose: 100 mls/hr Insulin Human Isoph/Insulin Regular (Novolin 70/30) 30 unit SUB-Q QDAC [facility] Last Admin: 06/16/17 10:11 Dose: 30 unit Multivitamins/Minerals (Theragran-M Tab) 1 each PO QDAY [facility] Last Admin: 06/16/17 10:13 Dose: 1 each Pantoprazole Sodium (Protonix) 20 mg PO QAM [facility] Last Admin: 06/16/17 10:13 Dose: 20 mg Rifaximin (Xifaxan) 550 mg PO BID [facility] Sertraline HCl (Zoloft) 150 mg PO QAM [facility] Last Admin: 06/16/17 10:12 Dose: 150 mg Spironolactone (Aldactone) 50 mg PO BID [facility] Last Admin: 06/16/17 10:15 Dose: Not Given Trazodone HCl (Desyrel) 50 mg PO QHS [facility] Last Admin: 06/15/17 22:14 Dose: 50 mg Exam - Constitutional Vital Signs: Temp Pulse Resp BP Pulse Ox 97.5 F L 98 H 18 96/56 96 06/16/17 20:37 06/16/17 20:37 06/16/17 20:37 06/16/17 20:37 06/16/17 20:37 - Labs CBC & Chem 7: 06/16/17 04:08 06/16/17 04:08 Lab Results: Laboratory Results - last 24 hr 06/16/17 06/16/17 06/16/17 04:08 04:08 08:40 WBC 5.0 RBC 2.95 L Hgb 7.1 L Hct 22.6 L MCV 77 L MCH 24 L MCHC 31 RDW 20.0 H Plt Count 59 L Lymph % (Auto) 16.7 [place] % (Auto) 13.1 H Eos % (Auto) 0.7 Baso % (Auto) 1.0 Lymph # 0.8 L [place] # 0.7 Eos # 0.0 Baso # 0.1 Seg Neutrophils % 68.5 Seg Neutrophils # 3.5 Sodium 136 L Potassium 4.2 Chloride 103.5 Carbon Dioxide 21 L Anion Gap 16 BUN 19 H Creatinine 0.7 Estimated GFR > 60 BUN/Creatinine Ratio 27 Glucose 61 L POC Glucose 71 Calcium 8.2 L Magnesium 1.90 Ammonia 06/16/17 06/16/17 06/16/17 09:13 11:22 17:07 WBC RBC Hgb Hct MCV MCH MCHC RDW Plt Count Lymph % (Auto) [place] % (Auto) Eos % (Auto) Baso % (Auto) Lymph # [place] # Eos # Baso # Seg Neutrophils % Seg Neutrophils # Sodium Potassium Chloride Carbon Dioxide Anion Gap BUN Creatinine Estimated GFR BUN/Creatinine Ratio Glucose POC Glucose 151 H 67 L Calcium Magnesium Ammonia 137.0 H Assessment and Plan Patient seen and examined. Agree with note by Amrita Lemus. Cirrhosis - likely 2/2 hep c; signs of HE (unknown baseline) on exam, start xifaxin and lactulose. segmental colitis - unclear etiology. she denies lower gi complaints. stool studies pending. Microcytic anemia - no signs of overt gi bleeding, check iron studies, unknown prior GI work-up
[2017-06-16] MEDS: ZOLOFT PO SCH (10:12)
[2017-06-16] MEDS: WELLBUTRIN XL PO SCH (10:12)
[2017-06-16] MEDS: FLEXERIL PO SCH ×2 (10:13→22:03)
[2017-06-16] MEDS: PROTONIX PO SCH (10:13)
[2017-06-16] MEDS: THERAGRAN-M Tab PO SCH (10:13)
[2017-06-16] MEDS: ALDACTONE PO SCH ×2 (10:15→23:04)
[2017-06-16] MEDS: LEVAQUIN 500MG/100ML 500 MG/100 ML BAG IV SCH (20:53)
[2017-06-16] MEDS: XIFAXAN PO SCH (22:02)
[2017-06-16] MEDS: DESYREL PO SCH (22:03)
[2017-06-17] MEDS: FLAGYL 500 MG/100 ML 500 MG/100 ML BAG IV SCH ×3 (04:23→21:05)
[2017-06-17 05:05] LABS: Basophils % (Auto) 0.9 % (0.0-1.8); Hematocrit 20.3 % (30.3-42.9); Hemoglobin 6.5 gm/dl (10.1-14.3); Mean Corpuscular HGB Conc 32 % (30-34); Mean Corpuscular Volume 76 fl (79-97); Red Blood Count 2.67 M/mm3 (3.65-5.03); White Blood Count 4.2 K/mm3 (4.5-11.0)
[2017-06-17 05:07] LABS: Mean Corpuscular Hemoglobin 24 pg (28-32); Platelet Count 51 K/mm3 (140-440); Red Cell Distribution Width 20.9 % (13.2-15.2)
[2017-06-17 05:15] LABS: INR 1.73 (0.87-1.13)
[2017-06-17 05:25] LABS: Anion Gap 17 mmol/L; BUN/Creatinine Ratio 24; Blood Urea Nitrogen 17 mg/dL (7-17); Calcium 7.8 mg/dL (8.4-10.2); Carbon Dioxide 20 mmol/L (22-30); Chloride 104.8 mmol/L (98-107); Glucose 59 mg/dL (65-100); Potassium 4.2 mmol/L (3.6-5.0); Sodium 138 mmol/L (137-145)
--- NOTE | 2017-06-17 08:07 | Progress Note ---
Assessment and Plan Assessment and plan: --Symptomatic Severe anemia; received 2 units PRBC, Hemoglobin dropped to 6.5, no external evidence of bleeding, transfuse additional 2 units of PRBCs Stool guaiac to rule out GI causes of anemia, GI following --Hypoglycemic episode; hold morning insulin closely monitor --Toxic metabolic encephalopathy; multifactorial, secondary to urinary tract infection, hyperammonemia, symptomatic anemia Closely monitor, manage underlying causes --Possible segmental colitis on CT abdomen; continue IV Levaquin and IV Flagyl, diabetic diet Abdomen soft nontender on palpation, GI following --Urinary tract infection; empiric antibiotics, IV hydration, follow cultures --Hypertension; continue current antihypertensives, when necessary medications --Hyperammonemia; chronic elevation of ammonia, normal LFTs, closely monitor --Type 2 diabetes mellitus; Accu-Chek sliding scale coverage ADA diet and insulin as needed --DVT prophylaxis; SCD, --full CODE STATUS Follow GI evaluation and recommendations, plan of care discussed with the patient, verbalized understanding History Interval history: When seen and examined medical records reviewed Hemoglobin dropped, no evidence of bleeding Patient denies any chest pain or shortness of breath Hypoglycemic episode this morning Hospitalist Physical - Constitutional Vitals: Temp Pulse Resp BP Pulse Ox 98.6 F 98 H 18 101/57 97 06/17/17 07:47 06/17/17 07:47 06/17/17 07:47 06/17/17 07:47 06/17/17 07:47 General appearance: Present: no acute distress, well-nourished, disheveled - EENT Eyes: Present: PERRL, EOM intact - Neck Neck: Present: supple, normal ROM - Respiratory Respiratory effort: normal Respiratory: bilateral: diminished, negative: rales, rhonchi, wheezing - Cardiovascular Rhythm: regular Heart Sounds: Present: S1 & S2 - Extremities Extremities: no ischemia, No edema - Abdominal General gastrointestinal: soft, non-tender, non-distended, normal bowel sounds - Integumentary Integumentary: Present: clear, warm - Psychiatric Psychiatric: appropriate mood/affect, cooperative - Neurologic Neurologic: CNII-XII intact, moves all extremities Results - Labs CBC & Chem 7: 06/17/17 03:35 06/17/17 03:35 Labs: Laboratory Last Values WBC 4.2 K/mm3 (4.5-11.0) L 06/17/17 03:35 RBC 2.67 M/mm3 (3.65-5.03) L 06/17/17 03:35 Hgb 6.5 gm/dl (10.1-14.3) L 06/17/17 03:35 Hct 20.3 % (30.3-42.9) L 06/17/17 03:35 MCV 76 fl (79-97) L 06/17/17 03:35 MCH 24 pg (28-32) L 06/17/17 03:35 MCHC 32 % (30-34) 06/17/17 03:35 RDW 20.9 % (13.2-15.2) H 06/17/17 03:35 Plt Count 51 K/mm3 (140-440) L 06/17/17 03:35 Lymph % (Auto) 14.7 % (13.4-35.0) 06/17/17 03:35 [place] % (Auto) 11.4 % (0.0-7.3) H 06/17/17 03:35 Eos % (Auto) 1.0 % (0.0-4.3) 06/17/17 03:35 Baso % (Auto) 0.9 % (0.0-1.8) 06/17/17 03:35 Lymph # 0.6 K/mm3 (1.2-5.4) L 06/17/17 03:35 [place] # 0.5 K/mm3 (0.0-0.8) 06/17/17 03:35 Eos # 0.0 K/mm3 (0.0-0.4) 06/17/17 03:35 Baso # 0.0 K/mm3 (0.0-0.1) 06/17/17 03:35 Seg Neutrophils % 72.0 % (40.0-70.0) H 06/17/17 03:35 Seg Neutrophils # 3.0 K/mm3 (1.8-7.7) 06/17/17 03:35 PT 21.2 Sec. (12.2-14.9) H 06/17/17 03:35 INR 1.73 (0.87-1.13) H 06/17/17 03:35 Sodium 138 mmol/L (137-145) 06/17/17 03:35 Potassium 4.2 mmol/L (3.6-5.0) 06/17/17 03:35 Chloride 104.8 mmol/L (98-107) 06/17/17 03:35 Carbon Dioxide 20 mmol/L (22-30) L 06/17/17 03:35 Anion Gap 17 mmol/L 06/17/17 03:35 BUN 17 mg/dL (7-17) 06/17/17 03:35 Creatinine 0.7 mg/dL (0.7-1.2) 06/17/17 03:35 Estimated GFR > 60 ml/min 06/17/17 03:35 BUN/Creatinine Ratio 24 % 06/17/17 03:35 Glucose 59 mg/dL (65-100) L 06/17/17 03:35 POC Glucose 71 (70-105) 06/16/17 22:00 Lactic Acid 1.30 mmol/L (0.7-2.0) 06/14/17 14:55 Calcium 7.8 mg/dL (8.4-10.2) L 06/17/17 03:35 Magnesium 1.90 mg/dL (1.7-2.3) 06/16/17 04:08 Total Bilirubin 1.10 mg/dL (0.1-1.2) 06/14/17 14:02 AST 37 units/L (5-40) 06/14/17 14:02 ALT 14 units/L (7-56) 06/14/17 14:02 Alkaline Phosphatase 111 units/L (35-129) 06/14/17 14:02 Ammonia 110.0 umol/L (25-60) H 06/17/17 03:35 Total Creatine Kinase 29 units/L (30-135) L 06/14/17 14:55 CK-MB (CK-2) < 1.0 ng/mL (0.0-4.0) 06/14/17 14:55 CK-MB (CK-2) Rel Index 3.4 (0-4) 06/14/17 14:55 Troponin T < 0.010 ng/mL (0.00-0.029) 06/14/17 14:55 Total Protein 7.1 g/dL (6.3-8.2) 06/14/17 14:02 Albumin 3.7 g/dL (3.9-5) L 06/14/17 14:02 Albumin/Globulin Ratio 1.1 % 06/14/17 14:02 TSH 1.970 mlU/mL (0.270-4.200) 06/14/17 14:02 Urine Color Grazyna (Yellow) 06/14/17 14:49 Urine Turbidity Clear (Clear) 06/14/17 14:49 Urine pH 5.0 (5.0-7.0) 06/14/17 14:49 Ur Specific [place] 1.020 (1.003-1.030) 06/14/17 14:49 Urine Protein <15 mg/dl mg/dL (Negative) 06/14/17 14:49 Urine Glucose (UA) Neg mg/dL (Negative) 06/14/17 14:49 Urine Ketones Neg mg/dL (Negative) 06/14/17 14:49 Urine Blood Neg (Negative) 06/14/17 14:49 Urine Nitrite Neg (Negative) 06/14/17 14:49 Urine Bilirubin Neg (Negative) 06/14/17 14:49 Urine Urobilinogen 4.0 mg/dL (<2.0) 06/14/17 14:49 Ur Leukocyte Esterase Tr (Negative) 06/14/17 14:49 Urine WBC (Auto) 15.0 /HPF (0.0-6.0) H 06/14/17 14:49 Urine RBC (Auto) 4.0 /HPF (0.0-6.0) 06/14/17 14:49 U Epithel Cells (Auto) 1.0 /HPF (0-13.0) 06/14/17 14:49 Urine Bacteria (Auto) 4+ /HPF (Negative) 06/14/17 14:49 Amorphous Crystals Few 06/14/17 14:49 Urine Mucus 2+ /HPF 06/14/17 14:49 Salicylates < 0.3 mg/dL (2.8-20.0) L 06/14/17 14:02 Urine Opiates Screen Presumptive negative 06/14/17 14:49 Urine Methadone Screen Presumptive positive 06/14/17 14:49 Acetaminophen < 15.0 ug/mL (10.0-30.0) 06/14/17 14:02 Ur Barbiturates Screen Presumptive negative 06/14/17 14:49 Ur Phencyclidine Scrn Presumptive negative 06/14/17 14:49 Ur Amphetamines Screen Presumptive positive 06/14/17 14:49 U Benzodiazepines Scrn Presumptive negative 06/14/17 14:49 Urine Cocaine Screen Presumptive negative 06/14/17 14:49 U Marijuana (THC) Screen Presumptive negative 06/14/17 14:49 Drugs of Abuse Note Disclamer 06/14/17 14:49 Plasma/Serum Alcohol < 0.01 gm% (0-0.07) 06/14/17 14:02 Blood Type O POSITIVE 06/14/17 16:50 Antibody Screen Negative 06/14/17 16:50 Crossmatch See Detail 06/14/17 16:50
[2017-06-17] MEDS ORDERED: NACL 0.9% 500 ML 500 ML IV NR ×2 (08:30→18:00)
[2017-06-17] MEDS ORDERED: MILK OF MAGNESIA PO PRN (10:00)
[2017-06-17] MEDS: THERAGRAN-M Tab PO SCH (10:13)
[2017-06-17] MEDS: WELLBUTRIN XL PO SCH (10:13)
[2017-06-17] MEDS: PROTONIX PO SCH (10:13)
[2017-06-17] MEDS: FLEXERIL PO SCH ×2 (10:13→22:00)
[2017-06-17] MEDS: ZOLOFT PO SCH (10:14)
[2017-06-17] MEDS: ALDACTONE PO SCH ×2 (10:14→23:31)
--- NOTE | 2017-06-17 10:34 | Gastroenterology Progress Note ---
<ROSALINA LEMUS - Last Filed: 06/17/17 10:34> Assessment and Plan 1.anemia 2.segmental colitis 3.HCV 4.cirrhosis 5.UTI 6.metabolic encephalopathy 7.hyperammonemia -INR 1.73 -iron 14 -HGB 6.5-trending down- transfusing pending -LEISA-etiology unclear -no active signs of bleeding per nursing -continue to monitor H/H and transfuse as needed -hold blood thinning medications -unclear of previous GI workup- will consider EGD/colonoscopy if consents can be obtained -segmental colitis-etiology unclear-clinically pt w/o complaints (no abd pain, N /v, or diarrhea)-stool studies pending, continue levaquin and flagyl -afebrile -WBC 4.2 -abd CT showed cirrhotic changes of the liver- most likely 2/2 HCV -ammonia 110- trending down- will start on lactulose -continue Xifaxan -continue supportive care -will follow Subjective Date of service: 06/17/17 Principal diagnosis: colitis/anemia Interval history: Patient sitting up in bedside chair eating breakfast. No acute distress. No complaints. Objective - Constitutional Vitals: Temp Pulse Resp BP Pulse Ox 98.6 F 98 H 18 101/57 97 06/17/17 07:47 06/17/17 07:47 06/17/17 07:47 06/17/17 10:14 06/17/17 07:47 General appearance: no acute distress - Respiratory Respiratory: bilateral: CTA - Cardiovascular Rhythm: regular Heart Sounds: Present: S1 & S2 - Gastrointestinal General gastrointestinal: Present: soft, non-tender, non-distended, normal bowel sounds - Integumentary Integumentary: Present: warm, dry - Neurologic Neurological: oriented to person - Labs CBC & Chem 7: 06/17/17 03:35 06/17/17 03:35 Labs: Laboratory Results - last 24 hr 06/14/17 06/16/17 06/16/17 16:50 08:40 09:13 WBC RBC Hgb Hct MCV MCH MCHC RDW Plt Count Lymph % (Auto) [place] % (Auto) Eos % (Auto) Baso % (Auto) Lymph # Coffee # Eos # Baso # Seg Neutrophils % Seg Neutrophils # PT INR Sodium Potassium Chloride Carbon Dioxide Anion Gap BUN Creatinine Estimated GFR BUN/Creatinine Ratio Glucose POC Glucose 71 Calcium Iron TIBC % Saturation Transferrin Ammonia 137.0 H Blood Type O POSITIVE Antibody Screen Negative Crossmatch See Detail 06/16/17 06/16/17 06/16/17 11:22 17:07 22:00 WBC RBC Hgb Hct MCV MCH MCHC RDW Plt Count Lymph % (Auto) [place] % (Auto) Eos % (Auto) Baso % (Auto) Lymph # Coffee # Eos # Baso # Seg Neutrophils % Seg Neutrophils # PT INR Sodium Potassium Chloride Carbon Dioxide Anion Gap BUN Creatinine Estimated GFR BUN/Creatinine Ratio Glucose POC Glucose 151 H 67 L 71 Calcium Iron TIBC % Saturation Transferrin Ammonia Blood Type Antibody Screen Crossmatch 06/17/17 06/17/17 06/17/17 03:35 03:35 03:35 WBC 4.2 L RBC 2.67 L Hgb 6.5 L Hct 20.3 L MCV 76 L MCH 24 L MCHC 32 RDW 20.9 H Plt Count 51 L Lymph % (Auto) 14.7 [place] % (Auto) 11.4 H Eos % (Auto) 1.0 Baso % (Auto) 0.9 Lymph # 0.6 L Coffee # 0.5 Eos # 0.0 Baso # 0.0 Seg Neutrophils % 72.0 H Seg Neutrophils # 3.0 PT 21.2 H INR 1.73 H Sodium 138 Potassium 4.2 Chloride 104.8 Carbon Dioxide 20 L Anion Gap 17 BUN 17 Creatinine 0.7 Estimated GFR > 60 BUN/Creatinine Ratio 24 Glucose 59 L POC Glucose Calcium 7.8 L Iron TIBC % Saturation Transferrin Ammonia Blood Type Antibody Screen Crossmatch 06/17/17 06/17/17 06/17/17 03:35 03:35 10:18 WBC RBC Hgb Hct MCV MCH MCHC RDW Plt Count Lymph % (Auto) [place] % (Auto) Eos % (Auto) Baso % (Auto) Lymph # Coffee # Eos # Baso # Seg Neutrophils % Seg Neutrophils # PT INR Sodium Potassium Chloride Carbon Dioxide Anion Gap BUN Creatinine Estimated GFR BUN/Creatinine Ratio Glucose POC Glucose 129 H Calcium Iron 14 L TIBC 263 % Saturation 5.32 Transferrin 237 Ammonia 110.0 H Blood Type Antibody Screen Crossmatch <AMERICO RUSH - Last Filed: 06/17/17 17:13> Assessment and Plan Patient seen and examined. Agree with note by Rosalina Tiffanie. Mental status about the same as yesterday. Unclear baseline, but signs of HE on exam (possibly exacerbated by infection/UTI, medications (UDS + for methadone ), etc). Start lactulose as above, cont xifaxin. limit sedating medications. H/H stable, + LEISA, no signs of overt gi bleeding. eventual GI work-up once mental status improves/pt able to tolerate prep (unless urgently indicated for overt bleeding). f/u stool studies. Objective - Constitutional Vitals: Temp Pulse Resp BP Pulse Ox 98.6 F 98 H 18 101/57 97 06/17/17 07:47 06/17/17 07:47 06/17/17 07:47 06/17/17 10:14 06/17/17 07:47 - Labs CBC & Chem 7: 06/17/17 03:35 06/17/17 03:35 Labs: Laboratory Results - last 24 hr 06/14/17 06/16/17 06/16/17 16:50 17:07 22:00 WBC RBC Hgb Hct MCV MCH MCHC RDW Plt Count Lymph % (Auto) [place] % (Auto) Eos % (Auto) Baso % (Auto) Lymph # [place] # Eos # Baso # Seg Neutrophils % Seg Neutrophils # PT INR Sodium Potassium Chloride Carbon Dioxide Anion Gap BUN Creatinine Estimated GFR BUN/Creatinine Ratio Glucose POC Glucose 67 L 71 Calcium Iron TIBC % Saturation Transferrin Ammonia Blood Type O POSITIVE Antibody Screen Negative Crossmatch See Detail 06/17/17 06/17/17 06/17/17 03:35 03:35 03:35 WBC 4.2 L RBC 2.67 L Hgb 6.5 L Hct 20.3 L MCV 76 L MCH 24 L MCHC 32 RDW 20.9 H Plt Count 51 L Lymph % (Auto) 14.7 Coffee % (Auto) 11.4 H Eos % (Auto) 1.0 Baso % (Auto) 0.9 Lymph # 0.6 L Coffee # 0.5 Eos # 0.0 Baso # 0.0 Seg Neutrophils % 72.0 H Seg Neutrophils # 3.0 PT 21.2 H INR 1.73 H Sodium 138 Potassium 4.2 Chloride 104.8 Carbon Dioxide 20 L Anion Gap 17 BUN 17 Creatinine 0.7 Estimated GFR > 60 BUN/Creatinine Ratio 24 Glucose 59 L POC Glucose Calcium 7.8 L Iron TIBC % Saturation Transferrin Ammonia Blood Type Antibody Screen Crossmatch 06/17/17 06/17/17 06/17/17 03:35 03:35 10:18 WBC RBC Hgb Hct MCV MCH MCHC RDW Plt Count Lymph % (Auto) [place] % (Auto) Eos % (Auto) Baso % (Auto) Lymph # [place] # Eos # Baso # Seg Neutrophils % Seg Neutrophils # PT INR Sodium Potassium Chloride Carbon Dioxide Anion Gap BUN Creatinine Estimated GFR BUN/Creatinine Ratio Glucose POC Glucose 129 H Calcium Iron 14 L TIBC 263 % Saturation 5.32 Transferrin 237 Ammonia 110.0 H Blood Type Antibody Screen Crossmatch 06/17/17 06/17/17 11:40 16:45 WBC RBC Hgb Hct MCV MCH MCHC RDW Plt Count Lymph % (Auto) [place] % (Auto) Eos % (Auto) Baso % (Auto) Lymph # [place] # Eos # Baso # Seg Neutrophils % Seg Neutrophils # PT INR Sodium Potassium Chloride Carbon Dioxide Anion Gap BUN Creatinine Estimated GFR BUN/Creatinine Ratio Glucose POC Glucose 151 H 101 Calcium Iron TIBC % Saturation Transferrin Ammonia Blood Type Antibody Screen Crossmatch
[2017-06-17] MEDS: CEPHULAC PO SCH ×2 (12:50→17:46)
[2017-06-17] MEDS ORDERED: NACL 0.9% 500 ML 500 ML IV ONE (18:00)
[2017-06-17] MEDS: LEVAQUIN 500MG/100ML 500 MG/100 ML BAG IV SCH (21:08)
[2017-06-17] MEDS: XIFAXAN PO SCH (23:29)
[2017-06-17] MEDS: DESYREL PO SCH (23:35)
[2017-06-18] MEDS: CEPHULAC PO SCH ×5 (06:26→23:42)
[2017-06-18] MEDS: FLAGYL 500 MG/100 ML 500 MG/100 ML BAG IV SCH ×2 (06:34→11:36)
--- NOTE | 2017-06-18 08:36 | Progress Note ---
Assessment and Plan Assessment and plan: --Symptomatic Severe anemia; received total 4 units PRBC, f/u Hemoglobin, no external evidence of bleeding, Stool guaiac, --Toxic metabolic encephalopathy; significantly improved --Cirrhosis liver; closely monitor, GI following --Coagulopathy/thrombocytopenia; secondary to cirrhosis liver, no evidence of bleeding However severely anemic requiring 4 units of PRBC --Hyperammonemia; chronic elevation of ammonia, normal LFTs, closely monitor --Possible segmental colitis on CT abdomen; continue IV Levaquin and IV Flagyl, diabetic diet Abdomen soft nontender on palpation, GI following --Urinary tract infection; empiric antibiotics, IV hydration, follow cultures --Hypertension; continue current antihypertensives, when necessary medications --Type 2 diabetes mellitus; Accu-Chek sliding scale coverage ADA diet and insulin as needed --DVT prophylaxis; SCD, --full CODE STATUS Follow GI recommendations Possible discharge in 1-2 days if stable History Interval history: Patient seen and examined No new events reported Receiving blood transfusion Vital signs stable Hospitalist Physical - Constitutional Vitals: Temp Pulse Resp BP Pulse Ox 98.5 F 99 H 18 107/62 100 06/18/17 07:40 06/18/17 07:40 06/18/17 07:40 06/18/17 07:40 06/18/17 07:40 General appearance: Present: no acute distress, well-nourished, disheveled - EENT Eyes: Present: PERRL, EOM intact - Neck Neck: Present: supple, normal ROM - Respiratory Respiratory effort: normal Respiratory: bilateral: diminished, negative: rales, rhonchi, wheezing - Cardiovascular Rhythm: regular Heart Sounds: Present: S1 & S2 - Extremities Extremities: no ischemia, No edema - Abdominal General gastrointestinal: soft, non-tender, non-distended, normal bowel sounds - Integumentary Integumentary: Present: clear, warm - Psychiatric Psychiatric: appropriate mood/affect, cooperative - Neurologic Neurologic: CNII-XII intact, moves all extremities Results - Labs CBC & Chem 7: 06/18/17 14:50 06/17/17 03:35 Labs: Laboratory Last Values WBC 4.2 K/mm3 (4.5-11.0) L 06/17/17 03:35 RBC 2.67 M/mm3 (3.65-5.03) L 06/17/17 03:35 Hgb 6.5 gm/dl (10.1-14.3) L 06/17/17 03:35 Hct 20.3 % (30.3-42.9) L 06/17/17 03:35 MCV 76 fl (79-97) L 06/17/17 03:35 MCH 24 pg (28-32) L 06/17/17 03:35 MCHC 32 % (30-34) 06/17/17 03:35 RDW 20.9 % (13.2-15.2) H 06/17/17 03:35 Plt Count 51 K/mm3 (140-440) L 06/17/17 03:35 Lymph % (Auto) 14.7 % (13.4-35.0) 06/17/17 03:35 [place] % (Auto) 11.4 % (0.0-7.3) H 06/17/17 03:35 Eos % (Auto) 1.0 % (0.0-4.3) 06/17/17 03:35 Baso % (Auto) 0.9 % (0.0-1.8) 06/17/17 03:35 Lymph # 0.6 K/mm3 (1.2-5.4) L 06/17/17 03:35 [place] # 0.5 K/mm3 (0.0-0.8) 06/17/17 03:35 Eos # 0.0 K/mm3 (0.0-0.4) 06/17/17 03:35 Baso # 0.0 K/mm3 (0.0-0.1) 06/17/17 03:35 Seg Neutrophils % 72.0 % (40.0-70.0) H 06/17/17 03:35 Seg Neutrophils # 3.0 K/mm3 (1.8-7.7) 06/17/17 03:35 PT 21.2 Sec. (12.2-14.9) H 06/17/17 03:35 INR 1.73 (0.87-1.13) H 06/17/17 03:35 Sodium 138 mmol/L (137-145) 06/17/17 03:35 Potassium 4.2 mmol/L (3.6-5.0) 06/17/17 03:35 Chloride 104.8 mmol/L (98-107) 06/17/17 03:35 Carbon Dioxide 20 mmol/L (22-30) L 06/17/17 03:35 Anion Gap 17 mmol/L 06/17/17 03:35 BUN 17 mg/dL (7-17) 06/17/17 03:35 Creatinine 0.7 mg/dL (0.7-1.2) 06/17/17 03:35 Estimated GFR > 60 ml/min 06/17/17 03:35 BUN/Creatinine Ratio 24 % 06/17/17 03:35 Glucose 59 mg/dL (65-100) L 06/17/17 03:35 POC Glucose 267 (70-105) H 06/17/17 22:00 Lactic Acid 1.30 mmol/L (0.7-2.0) 06/14/17 14:55 Calcium 7.8 mg/dL (8.4-10.2) L 06/17/17 03:35 Magnesium 1.90 mg/dL (1.7-2.3) 06/16/17 04:08 Iron 14 ug/dL (37-170) L 06/17/17 03:35 TIBC 263 mcg/dL (250-450) 06/17/17 03:35 % Saturation 5.32 % 06/17/17 03:35 Transferrin 237 mg/dl (192-382) 06/17/17 03:35 Total Bilirubin 1.10 mg/dL (0.1-1.2) 06/14/17 14:02 AST 37 units/L (5-40) 06/14/17 14:02 ALT 14 units/L (7-56) 06/14/17 14:02 Alkaline Phosphatase 111 units/L (35-129) 06/14/17 14:02 Ammonia 110.0 umol/L (25-60) H 06/17/17 03:35 Total Creatine Kinase 29 units/L (30-135) L 06/14/17 14:55 CK-MB (CK-2) < 1.0 ng/mL (0.0-4.0) 06/14/17 14:55 CK-MB (CK-2) Rel Index 3.4 (0-4) 06/14/17 14:55 Troponin T < 0.010 ng/mL (0.00-0.029) 06/14/17 14:55 Total Protein 7.1 g/dL (6.3-8.2) 06/14/17 14:02 Albumin 3.7 g/dL (3.9-5) L 06/14/17 14:02 Albumin/Globulin Ratio 1.1 % 06/14/17 14:02 TSH 1.970 mlU/mL (0.270-4.200) 06/14/17 14:02 Urine Color [place] (Yellow) 06/14/17 14:49 Urine Turbidity Clear (Clear) 06/14/17 14:49 Urine pH 5.0 (5.0-7.0) 06/14/17 14:49 Ur Specific [place] 1.020 (1.003-1.030) 06/14/17 14:49 Urine Protein <15 mg/dl mg/dL (Negative) 06/14/17 14:49 Urine Glucose (UA) Neg mg/dL (Negative) 06/14/17 14:49 Urine Ketones Neg mg/dL (Negative) 06/14/17 14:49 Urine Blood Neg (Negative) 06/14/17 14:49 Urine Nitrite Neg (Negative) 06/14/17 14:49 Urine Bilirubin Neg (Negative) 06/14/17 14:49 Urine Urobilinogen 4.0 mg/dL (<2.0) 06/14/17 14:49 Ur Leukocyte Esterase Tr (Negative) 06/14/17 14:49 Urine WBC (Auto) 15.0 /HPF (0.0-6.0) H 06/14/17 14:49 Urine RBC (Auto) 4.0 /HPF (0.0-6.0) 06/14/17 14:49 U Epithel Cells (Auto) 1.0 /HPF (0-13.0) 06/14/17 14:49 Urine Bacteria (Auto) 4+ /HPF (Negative) 06/14/17 14:49 Amorphous Crystals Few 06/14/17 14:49 Urine Mucus 2+ /HPF 06/14/17 14:49 Salicylates < 0.3 mg/dL (2.8-20.0) L 06/14/17 14:02 Urine Opiates Screen Presumptive negative 06/14/17 14:49 Urine Methadone Screen Presumptive positive 06/14/17 14:49 Acetaminophen < 15.0 ug/mL (10.0-30.0) 06/14/17 14:02 Ur Barbiturates Screen Presumptive negative 06/14/17 14:49 Ur Phencyclidine Scrn Presumptive negative 06/14/17 14:49 Ur Amphetamines Screen Presumptive positive 06/14/17 14:49 U Benzodiazepines Scrn Presumptive negative 06/14/17 14:49 Urine Cocaine Screen Presumptive negative 06/14/17 14:49 U Marijuana (THC) Screen Presumptive negative 06/14/17 14:49 Drugs of Abuse Note Disclamer 06/14/17 14:49 Plasma/Serum Alcohol < 0.01 gm% (0-0.07) 06/14/17 14:02 Blood Type O POSITIVE 06/17/17 19:21 Antibody Screen Negative 06/17/17 19:21 Crossmatch See Detail 06/17/17 19:21
[2017-06-18] MEDS: XIFAXAN PO SCH ×2 (10:03→22:00)
[2017-06-18] MEDS: PROTONIX PO SCH (10:04)
[2017-06-18] MEDS: FLEXERIL PO SCH ×2 (10:04→22:00)
[2017-06-18] MEDS: THERAGRAN-M Tab PO SCH (10:04)
[2017-06-18] MEDS: WELLBUTRIN XL PO SCH (10:04)
[2017-06-18] MEDS: ALDACTONE PO SCH ×2 (10:04→10:08)
[2017-06-18] MEDS: ZOLOFT PO SCH (10:05)
[2017-06-18 15:32] LABS: Hematocrit 30.2 % (30.3-42.9); Hemoglobin 9.5 gm/dl (10.1-14.3); Mean Corpuscular HGB Conc 32 % (30-34); Mean Corpuscular Volume 81 fl (79-97); Red Blood Count 3.75 M/mm3 (3.65-5.03); White Blood Count 4.7 K/mm3 (4.5-11.0)
[2017-06-18 15:33] LABS: Mean Corpuscular Hemoglobin 25 pg (28-32); Platelet Count 51 K/mm3 (140-440); Red Cell Distribution Width 21.5 % (13.2-15.2)
[2017-06-18 17:05] LABS: Basophils % (Manual) 0 % (0.0-1.8); Blastocytes % (Manual) 0 %; Eosinophils % (Manual) 0 % (0.0-4.3); Hypochromasia 1+; Ovalocytes 1+
[2017-06-18 17:06] LABS: Anisocytosis 1+; Platelet Estimate Appears Decreased; Poikilocytosis Few
[2017-06-18 17:07] LABS: Diff Status Complete
--- NOTE | 2017-06-18 19:44 | Gastroenterology Progress Note ---
Assessment and Plan - Patient Problems (1) Cirrhosis Current Visit: Yes Status: Acute Plan to address problem: - Hx of HCV, but will check viral load to see if active. - Will begin wean of lactulose (to TID) since better, and attempt xifaxan only in next few days. - Begin daily lasix/aldactone combination for moderate ascites. - Continue daily MVI. - Avoid all narcotics. (2) Portosystemic encephalopathy Current Visit: Yes Status: Acute Subjective Date of service: 06/18/17 Principal diagnosis: Cirrhosis Interval history: The patient is mentally somewhat more alert than yesterday, though still not oriented to place. She has no N/V with meals, and denies abdominal pain. No F/ C and no severe diarrhea despite lactulose. Objective - Constitutional Vitals: Temp Pulse Resp BP Pulse Ox 98.5 F 100 H 18 101/63 100 06/18/17 08:45 06/18/17 10:08 06/18/17 10:00 06/18/17 10:08 06/18/17 10:00 General appearance: no acute distress - EENT Eyes: PERRL, EOM intact - Respiratory Respiratory effort: normal Respiratory: bilateral: CTA - Cardiovascular Rhythm: regular Heart Sounds: Present: S1 & S2 - Gastrointestinal General gastrointestinal: Present: soft, non-tender, distended (Mild ascites) - Neurologic Neurological: oriented to person, asterixis - Labs CBC & Chem 7: 06/18/17 14:50 06/17/17 03:35 Labs: Laboratory Results - last 24 hr 06/17/17 06/17/17 06/18/17 19:21 22:00 08:05 WBC RBC Hgb Hct MCV MCH MCHC RDW Plt Count Add Manual Diff Total Counted Seg Neuts % (Manual) Band Neutrophils % Lymphocytes % (Manual) Reactive Lymphs % (Man) Monocytes % (Manual) Eosinophils % (Manual) Basophils % (Manual) Metamyelocytes % Myelocytes % Promyelocytes % Blast Cells % Nucleated RBC % Seg Neutrophils # Man Band Neutrophils # Lymphocytes # (Manual) Abs React Lymphs (Man) Monocytes # (Manual) Eosinophils # (Manual) Basophils # (Manual) Metamyelocytes # Myelocytes # Promyelocytes # Blast Cells # WBC Morphology Hypersegmented Neuts Hyposegmented Neuts Hypogranular Neuts Smudge Cells Toxic Granulation Toxic Vacuolation Dohle Bodies Pelger-Huet Anomaly Shawn Rods Platelet Estimate Clumped Platelets Plt Clumps, EDTA Large Platelets Giant Platelets Platelet Satelliting Plt Morphology Comment RBC Morphology Dimorphic RBCs Polychromasia Hypochromasia Poikilocytosis Anisocytosis Microcytosis Macrocytosis Spherocytes Pappenheimer Bodies Sickle Cells Target Cells Tear Drop Cells Ovalocytes Helmet Cells Caban-Thruston Bodies [place] Rings [place] Cells Bite Cells Crenated Cell Elliptocytes Acanthocytes (Spur) Rouleaux Hemoglobin C Crystals Schistocytes Malaria parasites Steve Bodies Hem Pathologist Commnt POC Glucose 267 H 87 Blood Type O POSITIVE Antibody Screen Negative Crossmatch See Detail 06/18/17 06/18/17 06/18/17 11:30 14:50 16:47 WBC 4.7 RBC 3.75 Hgb 9.5 L D Hct 30.2 L D MCV 81 MCH 25 L MCHC 32 RDW 21.5 H Plt Count 51 L Add Manual Diff Complete Total Counted 100 Seg Neuts % (Manual) 82.0 H Band Neutrophils % 0 Lymphocytes % (Manual) 8.0 L Reactive Lymphs % (Man) 0 Monocytes % (Manual) 10.0 H Eosinophils % (Manual) 0 Basophils % (Manual) 0 Metamyelocytes % 0 Myelocytes % 0 Promyelocytes % 0 Blast Cells % 0 Nucleated RBC % Not Reportable Seg Neutrophils # Man 3.9 Band Neutrophils # 0.0 Lymphocytes # (Manual) 0.4 L Abs React Lymphs (Man) 0.0 Monocytes # (Manual) 0.5 Eosinophils # (Manual) 0.0 Basophils # (Manual) 0.0 Metamyelocytes # 0.0 Myelocytes # 0.0 Promyelocytes # 0.0 Blast Cells # 0.0 WBC Morphology Not Reportable Hypersegmented Neuts Not Reportable Hyposegmented Neuts Not Reportable Hypogranular Neuts Not Reportable Smudge Cells Not Reportable Toxic Granulation Not Reportable Toxic Vacuolation Not Reportable Dohle Bodies Not Reportable Pelger-Huet Anomaly Not Reportable Shawn Rods Not Reportable Platelet Estimate Appears decreased Clumped Platelets Not Reportable Plt Clumps, EDTA Not Reportable Large Platelets Not Reportable Giant Platelets Not Reportable Platelet Satelliting Not Reportable Plt Morphology Comment Not Reportable RBC Morphology Not Reportable Dimorphic RBCs Not Reportable Polychromasia Not Reportable Hypochromasia 1+ Poikilocytosis Few Anisocytosis 1+ Microcytosis Not Reportable Macrocytosis Not Reportable Spherocytes Not Reportable Pappenheimer Bodies Not Reportable Sickle Cells Not Reportable Target Cells Not Reportable Tear Drop Cells Not Reportable Ovalocytes 1+ Helmet Cells Not Reportable Caban-Thruston Bodies Not Reportable [place] Rings Not Reportable [place] Cells Not Reportable Bite Cells Not Reportable Crenated Cell Not Reportable Elliptocytes Not Reportable Acanthocytes (Spur) Not Reportable Rouleaux Not Reportable Hemoglobin C Crystals Not Reportable Schistocytes Not Reportable Malaria parasites Not Reportable Steve Bodies Not Reportable Hem Pathologist Commnt No POC Glucose 96 74 Blood Type Antibody Screen Crossmatch
[2017-06-18] MEDS: DESYREL PO SCH (22:00)
[2017-06-19 04:49] LABS: Basophils % (Auto) 0.5 % (0.0-1.8); Eosinophils % (Auto) 0.8 % (0.0-4.3); Hematocrit 28.2 % (30.3-42.9); Hemoglobin 9.1 gm/dl (10.1-14.3); Mean Corpuscular HGB Conc 32 % (30-34); Mean Corpuscular Volume 80 fl (79-97); Red Blood Count 3.53 M/mm3 (3.65-5.03); White Blood Count 5.3 K/mm3 (4.5-11.0)
[2017-06-19 04:52] LABS: Mean Corpuscular Hemoglobin 26 pg (28-32); Platelet Count 45 K/mm3 (140-440); Red Cell Distribution Width 21.7 % (13.2-15.2)
[2017-06-19 05:07] LABS: INR 1.53 (0.87-1.13)
[2017-06-19 05:09] LABS: Alanine Aminotransferase 13 units/L (7-56); Albumin 3.2 g/dL (3.9-5); Albumin/Globulin Ratio 1.3 %; Alkaline Phosphatase 92 units/L (35-129); Anion Gap 19 mmol/L; BUN/Creatinine Ratio 25; Bilirubin,Direct 0.6 mg/dL (0-0.2); Bilirubin,Indirect 0.5 mg/dL; Blood Urea Nitrogen 15 mg/dL (7-17); Calcium 7.9 mg/dL (8.4-10.2); Carbon Dioxide 19 mmol/L (22-30); Chloride 102.7 mmol/L (98-107); Glucose 64 mg/dL (65-100); Potassium 3.7 mmol/L (3.6-5.0); Sodium 137 mmol/L (137-145); Total Protein 5.7 g/dL (6.3-8.2)
[2017-06-19] MEDS: CEPHULAC PO SCH ×2 (08:41→13:55)
[2017-06-19] MEDS: ZOLOFT PO SCH (09:21)
[2017-06-19] MEDS: PROTONIX PO SCH (09:23)
[2017-06-19] MEDS: FLEXERIL PO SCH (09:23)
[2017-06-19] MEDS: XIFAXAN PO SCH ×2 (09:23→23:00)
[2017-06-19] MEDS: LASIX PO SCH (09:23)
[2017-06-19] MEDS: THERAGRAN-M Tab PO SCH (09:23)
[2017-06-19] MEDS: WELLBUTRIN XL PO SCH (09:23)
[2017-06-19] MEDS: ALDACTONE PO SCH (09:30)
--- NOTE | 2017-06-19 11:56 | Progress Note ---
Assessment and Plan Assessment and plan: 66-year-old female with hepatitis C disability presented with metabolic encephalopathy resolving. - Patient Problems (1) Altered mental status Current Visit: Yes Status: Acute Plan to address problem: Secondary to hepatic encephalopathy patient now back at baseline. (2) Anemia Current Visit: Yes Status: Acute Plan to address problem: Most likely multifactorial secondary to cirrhosis possible GI bleed patient has guaiac positive stool. Received 4 units packed red blood cells. H&H stable 9 and 28. (3) Cirrhosis Current Visit: Yes Status: Acute Plan to address problem: Patient long-standing cirrhosis. Long-standing hepatitis C. Patient serial treatment previously. 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 Plan to discharge patient back to retirement in hemodynamically stable. If patient is not actively bleeding and does not need any further workup for her anemia will discharge back to the retirement. Unsure of guaiac positive stool and with the patient has had workup for lower GI bleed. Avoid narcotics. Multivitamin Lasix and Aldactone started. (4) DVT prophylaxis Current Visit: Yes Status: Acute (5) Diabetes Current Visit: Yes Status: Acute Plan to address problem: Fair control of her diabetes. (6) HTN (hypertension) Current Visit: Yes Status: Acute (7) Hepatic encephalopathy Current Visit: Yes Status: Resolved (8) UTI (urinary tract infection) Current Visit: Yes Status: Acute Plan to address problem: resolved History Interval history: At present patient states she feels a little better. Patient is awake alert and at her baseline. Patient is weak and has been that way for several months now. Hospitalist Physical - Constitutional Vitals: Temp Pulse Resp BP Pulse Ox 98.7 F 102 H 18 112/60 94 06/19/17 08:00 06/19/17 10:00 06/19/17 08:00 06/19/17 09:30 06/19/17 08:00 General appearance: Present: no acute distress, well-nourished, disheveled, other (baseline) - Respiratory Respiratory: bilateral: CTA - Cardiovascular Rhythm: regular - Extremities Extremities: no ischemia, pulses intact, No edema, normal temperature - Abdominal General gastrointestinal: soft, non-tender, normal bowel sounds, other (obese) - Psychiatric Psychiatric: other (baseline ) - Neurologic Neurologic: CNII-XII intact, no focal deficits, moves all extremities Results - Labs CBC & Chem 7: 06/19/17 04:02 06/19/17 04:02 Labs: Laboratory Last Values WBC 5.3 K/mm3 (4.5-11.0) 06/19/17 04:02 RBC 3.53 M/mm3 (3.65-5.03) L 06/19/17 04:02 Hgb 9.1 gm/dl (10.1-14.3) L 06/19/17 04:02 Hct 28.2 % (30.3-42.9) L 06/19/17 04:02 MCV 80 fl (79-97) 06/19/17 04:02 MCH 26 pg (28-32) L 06/19/17 04:02 MCHC 32 % (30-34) 06/19/17 04:02 RDW 21.7 % (13.2-15.2) H 06/19/17 04:02 Plt Count 45 K/mm3 (140-440) L 06/19/17 04:02 Lymph % (Auto) 15.2 % (13.4-35.0) 06/19/17 04:02 [place] % (Auto) 12.1 % (0.0-7.3) H 06/19/17 04:02 Eos % (Auto) 0.8 % (0.0-4.3) 06/19/17 04:02 Baso % (Auto) 0.5 % (0.0-1.8) 06/19/17 04:02 Lymph # 0.8 K/mm3 (1.2-5.4) L 06/19/17 04:02 [place] # 0.6 K/mm3 (0.0-0.8) 06/19/17 04:02 Eos # 0.0 K/mm3 (0.0-0.4) 06/19/17 04:02 Baso # 0.0 K/mm3 (0.0-0.1) 06/19/17 04:02 Add Manual Diff Complete 06/18/17 14:50 Total Counted 100 06/18/17 14:50 Seg Neutrophils % 71.4 % (40.0-70.0) H 06/19/17 04:02 Seg Neuts % (Manual) 82.0 % (40.0-70.0) H 06/18/17 14:50 Band Neutrophils % 0 % 06/18/17 14:50 Lymphocytes % (Manual) 8.0 % (13.4-35.0) L 06/18/17 14:50 Reactive Lymphs % (Man) 0 % 06/18/17 14:50 Monocytes % (Manual) 10.0 % (0.0-7.3) H 06/18/17 14:50 Eosinophils % (Manual) 0 % (0.0-4.3) 06/18/17 14:50 Basophils % (Manual) 0 % (0.0-1.8) 06/18/17 14:50 Metamyelocytes % 0 % 06/18/17 14:50 Myelocytes % 0 % 06/18/17 14:50 Promyelocytes % 0 % 06/18/17 14:50 Blast Cells % 0 % 06/18/17 14:50 Nucleated RBC % Not Reportable 06/18/17 14:50 Seg Neutrophils # 3.8 K/mm3 (1.8-7.7) 06/19/17 04:02 Seg Neutrophils # Man 3.9 K/mm3 (1.8-7.7) 06/18/17 14:50 Band Neutrophils # 0.0 K/mm3 06/18/17 14:50 Lymphocytes # (Manual) 0.4 K/mm3 (1.2-5.4) L 06/18/17 14:50 Abs React Lymphs (Man) 0.0 K/mm3 06/18/17 14:50 Monocytes # (Manual) 0.5 K/mm3 (0.0-0.8) 06/18/17 14:50 Eosinophils # (Manual) 0.0 K/mm3 (0.0-0.4) 06/18/17 14:50 Basophils # (Manual) 0.0 K/mm3 (0.0-0.1) 06/18/17 14:50 Metamyelocytes # 0.0 K/mm3 06/18/17 14:50 Myelocytes # 0.0 K/mm3 06/18/17 14:50 Promyelocytes # 0.0 K/mm3 06/18/17 14:50 Blast Cells # 0.0 K/mm3 06/18/17 14:50 WBC Morphology Not Reportable 06/18/17 14:50 Hypersegmented Neuts Not Reportable 06/18/17 14:50 Hyposegmented Neuts Not Reportable 06/18/17 14:50 Hypogranular Neuts Not Reportable 06/18/17 14:50 Smudge Cells Not Reportable 06/18/17 14:50 Toxic Granulation Not Reportable 06/18/17 14:50 Toxic Vacuolation Not Reportable 06/18/17 14:50 Dohle Bodies Not Reportable 06/18/17 14:50 Pelger-Huet Anomaly Not Reportable 06/18/17 14:50 Shawn Rods Not Reportable 06/18/17 14:50 Platelet Estimate Appears decreased 06/18/17 14:50 Clumped Platelets Not Reportable 06/18/17 14:50 Plt Clumps, EDTA Not Reportable 06/18/17 14:50 Large Platelets Not Reportable 06/18/17 14:50 Giant Platelets Not Reportable 06/18/17 14:50 Platelet Satelliting Not Reportable 06/18/17 14:50 Plt Morphology Comment Not Reportable 06/18/17 14:50 RBC Morphology Not Reportable 06/18/17 14:50 Dimorphic RBCs Not Reportable 06/18/17 14:50 Polychromasia Not Reportable 06/18/17 14:50 Hypochromasia 1+ 06/18/17 14:50 Poikilocytosis Few 06/18/17 14:50 Anisocytosis 1+ 06/18/17 14:50 Microcytosis Not Reportable 06/18/17 14:50 Macrocytosis Not Reportable 06/18/17 14:50 Spherocytes Not Reportable 06/18/17 14:50 Pappenheimer Bodies Not Reportable 06/18/17 14:50 Sickle Cells Not Reportable 06/18/17 14:50 Target Cells Not Reportable 06/18/17 14:50 Tear Drop Cells Not Reportable 06/18/17 14:50 Ovalocytes 1+ 06/18/17 14:50 Helmet Cells Not Reportable 06/18/17 14:50 [place] Bodies Not Reportable 06/18/17 14:50 [place] Rings Not Reportable 06/18/17 14:50 [place] Cells Not Reportable 06/18/17 14:50 Bite Cells Not Reportable 06/18/17 14:50 Crenated Cell Not Reportable 06/18/17 14:50 Elliptocytes Not Reportable 06/18/17 14:50 Acanthocytes (Spur) Not Reportable 06/18/17 14:50 Rouleaux Not Reportable 06/18/17 14:50 Hemoglobin C Crystals Not Reportable 06/18/17 14:50 Schistocytes Not Reportable 06/18/17 14:50 Malaria parasites Not Reportable 06/18/17 14:50 Steve Bodies Not Reportable 06/18/17 14:50 Hem Pathologist Commnt No 06/18/17 14:50 PT 19.3 Sec. (12.2-14.9) H 06/19/17 04:02 INR 1.53 (0.87-1.13) H 06/19/17 04:02 Sodium 137 mmol/L (137-145) 06/19/17 04:02 Potassium 3.7 mmol/L (3.6-5.0) 06/19/17 04:02 Chloride 102.7 mmol/L (98-107) 06/19/17 04:02 Carbon Dioxide 19 mmol/L (22-30) L 06/19/17 04:02 Anion Gap 19 mmol/L 06/19/17 04:02 BUN 15 mg/dL (7-17) 06/19/17 04:02 Creatinine 0.6 mg/dL (0.7-1.2) L 06/19/17 04:02 Estimated GFR > 60 ml/min 06/19/17 04:02 BUN/Creatinine Ratio 25 % 06/19/17 04:02 Glucose 64 mg/dL (65-100) L 06/19/17 04:02 POC Glucose 75 (70-105) 06/18/17 21:17 Lactic Acid 1.30 mmol/L (0.7-2.0) 06/14/17 14:55 Calcium 7.9 mg/dL (8.4-10.2) L 06/19/17 04:02 Magnesium 1.90 mg/dL (1.7-2.3) 06/19/17 04:02 Iron 14 ug/dL (37-170) L 06/17/17 03:35 TIBC 263 mcg/dL (250-450) 06/17/17 03:35 % Saturation 5.32 % 06/17/17 03:35 Transferrin 237 mg/dl (192-382) 06/17/17 03:35 Total Bilirubin 1.10 mg/dL (0.1-1.2) 06/19/17 04:02 Direct Bilirubin 0.6 mg/dL (0-0.2) H 06/19/17 04:02 Indirect Bilirubin 0.5 mg/dL 06/19/17 04:02 AST 17 units/L (5-40) 06/19/17 04:02 ALT 13 units/L (7-56) 06/19/17 04:02 Alkaline Phosphatase 92 units/L (35-129) 06/19/17 04:02 Ammonia 110.0 umol/L (25-60) H 06/17/17 03:35 Total Creatine Kinase 29 units/L (30-135) L 06/14/17 14:55 CK-MB (CK-2) < 1.0 ng/mL (0.0-4.0) 06/14/17 14:55 CK-MB (CK-2) Rel Index 3.4 (0-4) 06/14/17 14:55 Troponin T < 0.010 ng/mL (0.00-0.029) 06/14/17 14:55 Total Protein 5.7 g/dL (6.3-8.2) L 06/19/17 04:02 Albumin 3.2 g/dL (3.9-5) L 06/19/17 04:02 Albumin/Globulin Ratio 1.3 % 06/19/17 04:02 TSH 1.970 mlU/mL (0.270-4.200) 06/14/17 14:02 Urine Color [place] (Yellow) 06/14/17 14:49 Urine Turbidity Clear (Clear) 06/14/17 14:49 Urine pH 5.0 (5.0-7.0) 06/14/17 14:49 Ur Specific [place] 1.020 (1.003-1.030) 06/14/17 14:49 Urine Protein <15 mg/dl mg/dL (Negative) 06/14/17 14:49 Urine Glucose (UA) Neg mg/dL (Negative) 06/14/17 14:49 Urine Ketones Neg mg/dL (Negative) 06/14/17 14:49 Urine Blood Neg (Negative) 06/14/17 14:49 Urine Nitrite Neg (Negative) 06/14/17 14:49 Urine Bilirubin Neg (Negative) 06/14/17 14:49 Urine Urobilinogen 4.0 mg/dL (<2.0) 06/14/17 14:49 Ur Leukocyte Esterase Tr (Negative) 06/14/17 14:49 Urine WBC (Auto) 15.0 /HPF (0.0-6.0) H 06/14/17 14:49 Urine RBC (Auto) 4.0 /HPF (0.0-6.0) 06/14/17 14:49 U Epithel Cells (Auto) 1.0 /HPF (0-13.0) 06/14/17 14:49 Urine Bacteria (Auto) 4+ /HPF (Negative) 06/14/17 14:49 Amorphous Crystals Few 06/14/17 14:49 Urine Mucus 2+ /HPF 06/14/17 14:49 Salicylates < 0.3 mg/dL (2.8-20.0) L 06/14/17 14:02 Urine Opiates Screen Presumptive negative 06/14/17 14:49 Urine Methadone Screen Presumptive positive 06/14/17 14:49 Acetaminophen < 15.0 ug/mL (10.0-30.0) 06/14/17 14:02 Ur Barbiturates Screen Presumptive negative 06/14/17 14:49 Ur Phencyclidine Scrn Presumptive negative 06/14/17 14:49 Ur Amphetamines Screen Presumptive positive 06/14/17 14:49 U Benzodiazepines Scrn Presumptive negative 06/14/17 14:49 Urine Cocaine Screen Presumptive negative 06/14/17 14:49 U Marijuana (THC) Screen Presumptive negative 06/14/17 14:49 Drugs of Abuse Note Disclamer 06/14/17 14:49 Plasma/Serum Alcohol < 0.01 gm% (0-0.07) 06/14/17 14:02 Blood Type O POSITIVE 06/17/17 19:21 Antibody Screen Negative 06/17/17 19:21 Crossmatch See Detail 06/17/17 19:21
--- NOTE | 2017-06-19 18:45 | Gastroenterology Progress Note ---
Assessment and Plan - Patient Problems (1) Cirrhosis Current Visit: Yes Status: Acute Plan to address problem: - Hx of HCV, but will check viral load to see if active. - Will begin wean of lactulose (to BID) since better, and attempt xifaxan only in next few days. - Continue daily lasix/aldactone combination for mild ascites. - Continue daily MVI. - Avoid all narcotics. - Patient at baseline per PCP. Chronic NH resident; not sure how aggressive family wishes to be. - I think palliative care/EOL discussions with the family are appropriate. - Patient is stable; will sign off; please call if needed. (2) Portosystemic encephalopathy Current Visit: Yes Status: Acute Subjective Date of service: 06/19/17 Principal diagnosis: Cirrhosis Interval history: The patient has been stable overnight. Alert and interactive, but still disoriented (thinks she lives in the hospital). Has had multiple soft brown stools today per nursing. She has no N/V but is eating little per the nurses. Patient says she has no appetite. Objective - Constitutional Vitals: Temp Pulse Resp BP Pulse Ox 98.9 F 102 H 20 100/55 100 06/19/17 16:00 06/19/17 16:00 06/19/17 16:00 06/19/17 16:00 06/19/17 16:00 General appearance: no acute distress - Neck Neck: supple, normal ROM - Respiratory Respiratory effort: normal Respiratory: bilateral: CTA - Cardiovascular Rhythm: regular Heart Sounds: Present: S1 & S2 - Gastrointestinal General gastrointestinal: Present: soft, non-tender, distended (Mild ascites) - Labs CBC & Chem 7: 06/19/17 04:02 06/19/17 04:02 Labs: Laboratory Results - last 24 hr 06/18/17 06/19/17 06/19/17 21:17 04:02 04:02 WBC 5.3 RBC 3.53 L Hgb 9.1 L Hct 28.2 L MCV 80 MCH 26 L MCHC 32 RDW 21.7 H Plt Count 45 L Lymph % (Auto) 15.2 Lane % (Auto) 12.1 H Eos % (Auto) 0.8 Baso % (Auto) 0.5 Lymph # 0.[address] # 0.6 Eos # 0.0 Baso # 0.0 Seg Neutrophils % 71.4 H Seg Neutrophils # 3.8 PT INR Sodium 137 Potassium 3.7 Chloride 102.7 Carbon Dioxide 19 L Anion Gap 19 BUN 15 Creatinine 0.6 L Estimated GFR > 60 BUN/Creatinine Ratio 25 Glucose 64 L POC Glucose 75 Calcium 7.9 L Magnesium 1.90 Total Bilirubin 1.10 Direct Bilirubin 0.6 H Indirect Bilirubin 0.5 AST 17 ALT 13 Alkaline Phosphatase 92 Total Protein 5.7 L Albumin 3.2 L Albumin/Globulin Ratio 1.3 06/19/17 06/19/17 06/19/17 04:02 11:43 17:23 WBC RBC Hgb Hct MCV MCH MCHC RDW Plt Count Lymph % (Auto) Lane % (Auto) Eos % (Auto) Baso % (Auto) Lymph # Lane # Eos # Baso # Seg Neutrophils % Seg Neutrophils # PT 19.3 H INR 1.53 H Sodium Potassium Chloride Carbon Dioxide Anion Gap BUN Creatinine Estimated GFR BUN/Creatinine Ratio Glucose POC Glucose 159 H 126 H Calcium Magnesium Total Bilirubin Direct Bilirubin Indirect Bilirubin AST ALT Alkaline Phosphatase Total Protein Albumin Albumin/Globulin Ratio
[2017-06-20] MEDS: DESYREL PO SCH (00:02)
[2017-06-20] MEDS: CEPHULAC PO SCH ×4 (00:02→11:03)
[2017-06-20] MEDS: XIFAXAN PO SCH ×2 (00:02→10:39)
[2017-06-20] MEDS: FLEXERIL PO SCH ×2 (00:02→10:38)
[2017-06-20 05:48] LABS: Basophils % (Auto) 1.3 % (0.0-1.8); Hematocrit 27.6 % (30.3-42.9); Hemoglobin 8.8 gm/dl (10.1-14.3); Mean Corpuscular HGB Conc 32 % (30-34); Mean Corpuscular Volume 81 fl (79-97); Red Blood Count 3.42 M/mm3 (3.65-5.03); White Blood Count 5.3 K/mm3 (4.5-11.0)
[2017-06-20 05:52] LABS: Mean Corpuscular Hemoglobin 26 pg (28-32); Platelet Count 41 K/mm3 (140-440)
[2017-06-20 06:12] LABS: Anion Gap 18 mmol/L; BUN/Creatinine Ratio 23; Blood Urea Nitrogen 14 mg/dL (7-17); Calcium 7.8 mg/dL (8.4-10.2); Carbon Dioxide 19 mmol/L (22-30); Chloride 102.7 mmol/L (98-107); Glucose 93 mg/dL (65-100); Potassium 3.6 mmol/L (3.6-5.0); Sodium 136 mmol/L (137-145)
--- NOTE | 2017-06-20 08:48 | Discharge Summary ---
Providers - Providers Date of Admission: 06/14/17 17:39 Date of discharge: 06/20/17 Attending physician: TRISHA DE LEON 06/15/17 19:09 Consult to Physician [CONS] Routine Consulting Provider: AMERICO RUSH Reason For Exam: segmental colitis on CT/anemia Place consult to:: answering service Notified:: yes Phone number called:: [phone] If yes, spoke with:: elvira Time called:: 08:57 Comment:: art Primary care physician: GARAGE DOOR TECHNICIAN Hospitalization Condition: Poor Pertinent studies: CT scan abdomen which showed right colon and transverse colon wall thickening consistent with colitis. CT scan of head showed cortical atrophy and chronic maxillary sinusitis. Hospital course: 66-year-old well known to myself with a history of diabetes hypertension hepatitis C virus dementia and depression COPD presents with lethargy and confusion was thought to be multifactorial secondary to #1 hyperammonia levels hepatic encephalopathy with cirrhosis #2 urinary tract infection #3 symptomatic anemia patient receives transfusion was treated with lactulose for encephalopathy. Patient's encephalopathy resolved. Patient is at baseline. Patient does states she is depressed she is not at home and not around her . So some of his residual encephalopathy has to do with worsening dementia and probable depression. I do agree with GI about palliative care discussion with family and I will initiate that with family and upon return to [place]. Patient was wheelchair-bound before and was not participating with therapy prior to this admission. Disposition: /[id number] SN[facility] - Discharge Diagnoses (1) Altered mental status Status: Acute Comment: Multifactorial as mentioned in hospital course #1 hepatic encephalopathy #2 UTI #3 symptomatic anemia (2) Anemia Status: Acute Comment: She was symptomatic anemia most likely secondary to chronic disease hepatitis C colitis. Could have some blood loss. H&H is remaining relatively stable after being transfused. We do have access to repeat hemoglobin and hematocrit. (3) Cirrhosis Status: Acute Comment: Patient with hepatitis C cirrhosis. We'll start patient lactulose twice a day also started on Xifaxan as well. Lasix and Aldactone short doses for ascites will need to watch closely for dehydration multivitamin. Avoid narcotic agents. Patient I believe is failed outpatient treatment for hepatitis C virus will follow-up daily notes from GI (4) DVT prophylaxis Status: Acute (5) Diabetes Status: Acute Comment: Have fair control her diabetes. Will not adjust too much patient due to somewhat decreased by mouth intake. Improve his depression improved once she gets back in her environment. (6) HTN (hypertension) Status: Acute Comment: Currently well controlled. (7) Hepatic encephalopathy Status: Resolved (8) UTI (urinary tract infection) Status: Acute Comment: With IV antibiotics in the hospital. We'll continue by mouth for 3 days. Has essentially resolved. Core Measure Documentation - Palliative Care Palliative Care/ Comfort Measures: Not Applicable - Core Measures Any of the following diagnoses?: none Exam - Constitutional Vitals: Temp Pulse Resp BP Pulse Ox 97.6 F 100 H 18 88/58 99 06/20/17 04:13 06/20/17 04:13 06/20/17 04:13 06/20/17 04:13 06/20/17 04:13 General appearance: Present: no acute distress, well-nourished - EENT Eyes: Present: PERRL ENT: hearing intact, clear oral mucosa - Neck Neck: Present: supple, normal ROM - Respiratory Respiratory effort: normal Respiratory: bilateral: CTA - Cardiovascular Heart Sounds: Present: S1 & S2. Absent: rub, click - Extremities Extremities: pulses symmetrical, No edema Peripheral Pulses: within normal limits - Abdominal General gastrointestinal: Present: soft, non-tender, non-distended, normal bowel sounds Female genitourinary: Present: normal - Integumentary Integumentary: Present: clear, warm, dry - Musculoskeletal Musculoskeletal: gait normal, strength equal bilaterally - Psychiatric Psychiatric: appropriate mood/affect, intact judgment & insight - Neurologic Neurologic: CNII-XII intact, moves all extremities Plan Activity: fall precautions Weight Bearing Status: Touch Down Weight Bearing Diet: diabetic Special Instructions: restrict fluid intake to (2 lit) Follow up with: PRIMARY CARE, [Primary Care Provider] - 3-5 Days Prescriptions: Furosemide [Lasix TAB] 20 mg PO QDAY #30 tablet HYDROcodone/APAP 5-325 [[place] 5-325 mg TAB] 1 each PO Q6HR PRN #60 tablet PRN Reason: Pain Insulin NPH/Regular [NovoLIN 70/30] 30 unit SQ QDAC #1 units Lactulose [Cephulac] 20 gm PO BID #60 oral.liqd Multivit with Calcium,Iron,Min [Multiple Vitamins For Women] 1 tab PO DAILY #30 tablet Pantoprazole [Protonix TAB] 20 mg PO QAM #30 tablet. Rifaximin [Xifaxan] 550 mg PO BID #60 tablet Spironolactone [Aldactone] 50 mg PO BID #60 tablet traZODone [Desyrel] 50 mg PO QHS #30 tablet
[2017-06-20] MEDS: PROTONIX PO SCH (10:38)
[2017-06-20] MEDS: ZOLOFT PO SCH (10:38)
[2017-06-20] MEDS: WELLBUTRIN XL PO SCH (10:39)
[2017-06-20] MEDS: LASIX PO SCH (10:39)
[2017-06-20] MEDS: THERAGRAN-M Tab PO SCH (10:39)
[2017-06-20 10:50] VITALS: BP 94/59
[2017-06-20] MEDS: ALDACTONE PO SCH (10:50)
[2017-06-20] MEDS ORDERED: NACL 0.9% 500 ML 500 ML IV ONE (14:00)
== END 2017-06-20 13:50 | DRG 441 ==
LOC: ED 12:59 → 2B-ACE 17:39 → 3A 18:53 → 2B-ACE 21:38
PROVIDERS: ADMIT Internal Medicine; ATTEND Internal Medicine
PROC: 30233N1 Transfusion of Nonautologous Red Blood Cells into Peripheral Vein, Percutaneous Approach (ICD-10-PCS; principal; 2017-06-17)
DX: K72.90 Hepatic failure, unspecified without coma (principal); G92 Toxic encephalopathy; K50.10 Crohn's disease of large intestine without complications; N39.0 Urinary tract infection, site not specified; E72.20 Disorder of urea cycle metabolism, unspecified; D68.9 Coagulation defect, unspecified; I10 Essential (primary) hypertension; K74.60 Unspecified cirrhosis of liver; E11.649 Type 2 diabetes mellitus with hypoglycemia without coma; F03.90 Unspecified dementia, unspecified severity, without behavioral disturbance, psychotic disturbance, mood disturbance, and anxiety; F32.9 Major depressive disorder, single episode, unspecified; B19.20 Unspecified viral hepatitis C without hepatic coma; D50.9 Iron deficiency anemia, unspecified; D69.6 Thrombocytopenia, unspecified; J44.9 Chronic obstructive pulmonary disease, unspecified; Z51.5 Encounter for palliative care; Z83.3 Family history of diabetes mellitus; Z82.49 Family history of ischemic heart disease and other diseases of the circulatory system; Z90.710 Acquired absence of both cervix and uterus
CPT/HCPCS: 36415; 70450; 71010; 74177; 80048; 80053; 80074; 80307; 80320; 81001; 82140; 82270; 82550; 82553; 82962; 83550; 83735; 84443; 84484; 85007; 85025; 85027; 85610; 86850; 86900; 86901; 86920; 87045; 87493; 87517; 93005; 93010; 99285; G0480; J1815; J1956; J7030; J7040; P9016; Q9967

== ENCOUNTER 2017-07-22 23:56 | Inpatient (IN) | payer MEDICARE ==
[2017-07-23] MEDS ORDERED: NACL 0.9% 500 ML 500 ML IV ONE (01:16)
[2017-07-23 02:37] LABS: Basophils % (Auto) 0.2 % (0.0-1.8); Eosinophils # (Auto) 0.1 K/mm3 (0.0-0.4); Eosinophils % (Auto) 1.2 % (0.0-4.3); Hematocrit 22.4 % (30.3-42.9); Hemoglobin 6.8 gm/dl (10.1-14.3); Lymphocytes # (Auto) 0.9 K/mm3 (1.2-5.4); Mean Corpuscular HGB Conc 30 % (30-34); Mean Corpuscular Volume 79 fl (79-97); Monocytes # (Auto) 1.3 K/mm3 (0.0-0.8); Monocytes % (Auto) 11.1 % (0.0-7.3); Platelet Count 117 K/mm3 (140-440); Red Blood Count 2.84 M/mm3 (3.65-5.03)
[2017-07-23 02:45] LABS: Albumin 2.7 g/dL (3.9-5); Calcium 8.4 mg/dL (8.4-10.2)
[2017-07-23 02:49] LABS: Mean Corpuscular Hemoglobin 24 pg (28-32); Red Cell Distribution Width 24.5 % (13.2-15.2)
[2017-07-23 03:11] LABS: INR 1.42 (0.87-1.13)
[2017-07-23 03:12] LABS: Partial Thromboplastin Time 32.4 Sec. (24.2-36.6)
[2017-07-23] MEDS ORDERED: NACL 0.9% 500 ML 500 ML ONE (03:30)
--- NOTE | 2017-07-23 04:37 | Emergency Department Report ---
ED General Adult HPI - General Chief complaint: Medical Clearance Stated complaint: BLOOD TRANSFUSION Time Seen by Provider: 07/23/17 00:34 Source: patient, EMS, RN notes reviewed, old records reviewed Mode of arrival: Stretcher Limitations: No Limitations - History of Present Illness Initial comments: Patient is a 66-year-old female who is presenting from long term for anemia. Patient was sent because of critical labs. Patient's hemoglobin was 6.5. Patient has a history of hepatitis C with hepatic encephalopathy and possible UTI. Patient's paperwork states she has a UTI currently however no urinalysis was sent with the patient. Patient has some slight dementia and is a poor historian. Patient is not complaining of any pain nausea vomiting diarrhea or fever at this time. -: unknown Severity scale (0 -10): 0 - Related Data Home Medications Medication Instructions Recorded Confirmed Last Taken Bisacodyl [Dulcolax suppos] 10 mg IN ONCE PRN 01/10/17 06/14/17 Unknown Sertraline [Zoloft] 150 mg PO QAM 01/10/17 06/14/17 03/07/17 buPROPion XL [Wellbutrin XL] 150 mg PO QAM 01/10/17 06/14/17 01/09/17 glyBURIDE [Diabeta] 2.5 mg PO DAILY 01/10/17 06/14/17 03/07/17 Previous Rx's Medication Instructions Recorded Last Taken Type Furosemide [Lasix TAB] 20 mg PO QDAY #30 tablet 06/20/17 Unknown Rx HYDROcodone/APAP 5-325 [[place] 1 each PO Q6HR PRN #60 tablet 06/20/17 Unknown Rx 5-325 mg TAB] Insulin NPH/Regular [NovoLIN 70/30] 30 unit SQ QDAC #1 units 06/20/17 Unknown Rx Lactulose [Cephulac] 20 gm PO BID #60 oral.liqd 06/20/17 Unknown Rx Multivit with Calcium,Iron,Min 1 tab PO DAILY #30 tablet 06/20/17 Unknown Rx [Multiple Vitamins For Women] Pantoprazole [Protonix TAB] 20 mg PO QAM #30 tablet. 06/20/17 Unknown Rx Rifaximin [Xifaxan] 550 mg PO BID #60 tablet 06/20/17 Unknown Rx Spironolactone [Aldactone] 50 mg PO BID #60 tablet 06/20/17 Unknown Rx traZODone [Desyrel] 50 mg PO QHS #30 tablet 06/20/17 Unknown Rx Allergies Allergy/AdvReac Type Severity Reaction Status Date / Time No Known Allergies Allergy Verified 03/07/17 23:29 ED Review of Systems ROS: Stated complaint: BLOOD TRANSFUSION Other details as noted in HPI Comment: Unobtainable due to pts medical conditions ED Past Medical Hx - Past Medical History Previous Medical History?: Yes Hx Hypertension: Yes Hx Heart Attack/AMI: No Hx Congestive Heart Failure: No Hx Diabetes: Yes Hx Liver Disease: Yes (hepatitis C) Hx Psychiatric Treatment: Yes (major depressive disorder) Hx Asthma: No Hx COPD: Yes Additional medical history: anemia - Surgical History Past Surgical History?: Yes Additional Surgical History: hyst - Social History Smoking Status: Current Some Day Smoker Substance Use Type: None - Medications Home Medications: Home Medications Medication Instructions Recorded Confirmed Last Taken Type Bisacodyl [Dulcolax suppos] 10 mg IN ONCE PRN 01/10/17 06/14/17 Unknown History Sertraline [Zoloft] 150 mg PO QAM 01/10/17 06/14/17 03/07/17 History buPROPion XL [Wellbutrin XL] 150 mg PO QAM 01/10/17 06/14/17 01/09/17 History glyBURIDE [Diabeta] 2.5 mg PO DAILY 01/10/17 06/14/17 03/07/17 History Furosemide [Lasix TAB] 20 mg PO QDAY #30 tablet 06/20/17 Unknown Rx HYDROcodone/APAP 5-325 [[place] 1 each PO Q6HR PRN #60 tablet 06/20/17 Unknown Rx 5-325 mg TAB] Insulin NPH/Regular [NovoLIN 70/30] 30 unit SQ QDAC #1 units 06/20/17 Unknown Rx Lactulose [Cephulac] 20 gm PO BID #60 oral.liqd 06/20/17 Unknown Rx Multivit with Calcium,Iron,Min 1 tab PO DAILY #30 tablet 06/20/17 Unknown Rx [Multiple Vitamins For Women] Pantoprazole [Protonix TAB] 20 mg PO QAM #30 tablet. 06/20/17 Unknown Rx Rifaximin [Xifaxan] 550 mg PO BID #60 tablet 06/20/17 Unknown Rx Spironolactone [Aldactone] 50 mg PO BID #60 tablet 06/20/17 Unknown Rx traZODone [Desyrel] 50 mg PO QHS #30 tablet 06/20/17 Unknown Rx ED Physical Exam - General Limitations: No Limitations General appearance: alert, in no apparent distress, other (pale in color, dry mouth) - Head Head exam: Present: atraumatic, normocephalic - Eye Eye exam: Present: normal appearance - ENT ENT exam: Present: mucous membranes moist - Neck Neck exam: Present: normal inspection - Respiratory Respiratory exam: Present: normal lung sounds bilaterally. Absent: respiratory distress - Cardiovascular Cardiovascular Exam: Present: regular rate, normal rhythm. Absent: systolic murmur, diastolic murmur, rubs, gallop - GI/Abdominal GI/Abdominal exam: Present: soft, distended, normal bowel sounds, organomegaly. Absent: tenderness, guarding, rebound, pulsatile mass - Rectal Rectal exam: Present: normal inspection, heme (-) stool. Absent: heme (+) stool , black stool, bloody stool, hemorrhoids - Extremities Exam Extremities exam: Present: normal inspection - Back Exam Back exam: Present: normal inspection - Neurological Exam Neurological exam: Present: alert, oriented X3 - Psychiatric Psychiatric exam: Present: normal affect, normal mood - Skin Skin exam: Present: warm, dry, intact, normal color. Absent: rash ED Course Vital Signs 07/23/17 07/23/17 07/23/17 00:20 01:00 02:00 Temperature 98.3 F Pulse Rate 109 H 108 H Respiratory 18 11 L Rate Blood Pressure 100/61 103/55 99/57 Blood Pressure 100/61 [Left] O2 Sat by Pulse 100 100 100 Oximetry 07/23/17 07/23/17 03:50 04:05 Temperature 97.7 F 97.7 F Pulse Rate 99 H 100 H Respiratory 13 12 Rate Blood Pressure 110/62 103/58 Blood Pressure [Left] O2 Sat by Pulse 100 100 Oximetry ED Medical Decision Making - Lab Data Result diagrams: 07/23/17 01:33 07/23/17 01:33 Lab Results 07/23/17 07/23/17 07/23/17 Range/Units 01:33 01:33 01:33 WBC 11.8 H (4.5-11.0) K/mm3 RBC 2.84 L (3.65-5.03) M/mm3 Hgb 6.8 L (10.1-14.3) gm/dl Hct 22.4 L (30.3-42.9) % MCV 79 (79-97) fl MCH 24 L (28-32) pg MCHC 30 (30-34) % RDW 24.5 H (13.2-15.2) % Plt Count 117 L (140-440) K/mm3 Lymph % (Auto) 8.0 L (13.4-35.0) % [place] % (Auto) 11.1 H (0.0-7.3) % Eos % (Auto) 1.2 (0.0-4.3) % Baso % (Auto) 0.2 (0.0-1.8) % Lymph # 0.9 L (1.2-5.4) K/mm3 [place] # 1.3 H (0.0-0.8) K/mm3 Eos # 0.1 (0.0-0.4) K/mm3 Baso # 0.0 (0.0-0.1) K/mm3 Seg Neutrophils % 79.5 H (40.0-70.0) % Seg Neutrophils # 9.4 H (1.8-7.7) K/mm3 PT 18.1 H (12.2-14.9) Sec. INR 1.42 H (0.87-1.13) APTT 32.4 (24.2-36.6) Sec. Sodium 138 (137-145) mmol/L Potassium 4.0 (3.6-5.0) mmol/L Chloride 97.3 L (98-107) mmol/L Carbon Dioxide 24 (22-30) mmol/L Anion Gap 21 mmol/L BUN 37 H (7-17) mg/dL Creatinine 1.1 (0.7-1.2) mg/dL Estimated GFR 50 ml/min BUN/Creatinine Ratio 34 % Glucose 184 H (65-100) mg/dL Calcium 8.4 (8.4-10.2) mg/dL Total Bilirubin 1.40 H (0.1-1.2) mg/dL AST 246 H (5-40) units/L ALT 116 H (7-56) units/L Alkaline Phosphatase 1080 H (35-129) units/L Ammonia (25-60) umol/L Total Protein 5.9 L (6.3-8.2) g/dL Albumin 2.7 L (3.9-5) g/dL Albumin/Globulin Ratio 0.8 % Blood Type Antibody Screen Crossmatch 07/23/17 07/23/17 Range/Units 01:33 01:42 WBC (4.5-11.0) K/mm3 RBC (3.65-5.03) M/mm3 Hgb (10.1-14.3) gm/dl Hct (30.3-42.9) % MCV (79-97) fl MCH (28-32) pg MCHC (30-34) % RDW (13.2-15.2) % Plt Count (140-440) K/mm3 Lymph % (Auto) (13.4-35.0) % [place] % (Auto) (0.0-7.3) % Eos % (Auto) (0.0-4.3) % Baso % (Auto) (0.0-1.8) % Lymph # (1.2-5.4) K/mm3 [place] # (0.0-0.8) K/mm3 Eos # (0.0-0.4) K/mm3 Baso # (0.0-0.1) K/mm3 Seg Neutrophils % (40.0-70.0) % Seg Neutrophils # (1.8-7.7) K/mm3 PT (12.2-14.9) Sec. INR (0.87-1.13) APTT (24.2-36.6) Sec. Sodium (137-145) mmol/L Potassium (3.6-5.0) mmol/L Chloride (98-107) mmol/L Carbon Dioxide (22-30) mmol/L Anion Gap mmol/L BUN (7-17) mg/dL Creatinine (0.7-1.2) mg/dL Estimated GFR ml/min BUN/Creatinine Ratio % Glucose (65-100) mg/dL Calcium (8.4-10.2) mg/dL Total Bilirubin (0.1-1.2) mg/dL AST (5-40) units/L ALT (7-56) units/L Alkaline Phosphatase (35-129) units/L Ammonia 38.0 (25-60) umol/L Total Protein (6.3-8.2) g/dL Albumin (3.9-5) g/dL Albumin/Globulin Ratio % Blood Type O POSITIVE Antibody Screen Negative Crossmatch See Detail - Medical Decision Making Patient is 66-year-old female with hepatitis was presenting with anemia. Patient will be admitted to Dr. Lomeli. Patient will undergo further studies to determine the source of her anemia. Critical care attestation.: If time is entered above; I have spent that time in minutes in the direct care of this critically ill patient, excluding procedure time. ED Disposition Clinical Impression: Anemia, Renal insufficiency, Hepatic encephalopathy Disposition: OP ADMIT IP TO THIS HOSP Is pt being admited?: Yes Does the pt Need Aspirin: No Condition: Stable
[2017-07-23] MEDS: NACL 0.9% 1000 ML 1,000 ML IV SCH ×2 (07:15→23:12)
--- NOTE | 2017-07-23 07:41 | History and Physical Report ---
History of Present Illness Date of examination: 07/23/17 Date of admission: 07/23/17 04:40 Chief complaint: Anemia History of present illness: 66-year-old female with past medical history significant for dementia , diabetes mellitus type 2, cirrhosis, chronic hep C, hepatitis, hepatic encephalopathy was [facility] for the complaints of altered mental status and anemia. Patient has dementia and poor historian she said she has anemia and he brought her here. Per chart review patient was admitted here previously for hepatic encephalopathy. No further history is obtained because of dementia. Past History Past Medical History: diabetes, liver disease Past Surgical History: No surgical history Social history: smoking (1/2 PPD), full code. denies: alcohol abuse, prescription drug abuse, IV drug use Family history: no significant family history Medications and Allergies Allergies Allergy/AdvReac Type Severity Reaction Status Date / Time No Known Allergies Allergy Verified 03/07/17 23:29 Home Medications Medication Instructions Recorded Confirmed Last Taken Type Bisacodyl [Dulcolax suppos] 10 mg AR ONCE PRN 01/10/17 07/23/17 Unknown History Sertraline [Zoloft] 150 mg PO QAM 01/10/17 07/23/17 03/07/17 History buPROPion XL [Wellbutrin XL] 150 mg PO QAM 01/10/17 07/23/17 01/09/17 History glyBURIDE [Diabeta] 2.5 mg PO DAILY 01/10/17 07/23/17 03/07/17 History HYDROcodone/APAP 5-325 [[place] 1 each PO Q6HR PRN #60 tablet 06/20/17 07/23/17 Unknown Rx 5-325 mg TAB] Insulin NPH/Regular [NovoLIN 70/30] 30 unit SQ QDAC #1 units 06/20/17 07/23/17 Unknown Rx Multivit with Calcium,Iron,Min 1 tab PO DAILY #30 tablet 06/20/17 07/23/17 Unknown Rx [Multiple Vitamins For Women] Pantoprazole [Protonix TAB] 20 mg PO QAM #30 tablet. 06/20/17 07/23/17 Unknown Rx Spironolactone [Aldactone] 50 mg PO BID #60 tablet 06/20/17 07/23/17 Unknown Rx traZODone [Desyrel] 50 mg PO QHS #30 tablet 06/20/17 07/23/17 Unknown Rx Active Meds: Active Medications Sodium Chloride (Nacl 0.9% 1000 Ml) 1,000 mls @ 42 mls/hr IV DIRECT JEAN MARIE Last Admin: 07/23/17 07:15 Dose: 42 mls/hr Review of Systems ROS unobtainable: due to mental status (patient said no to all of my review of system questions, but it unreliable, because she denied most of the disease conditions that she has like diabtes and on medications.) Exam - Physical Exam Narrative exam: Not in cardiopulmonary distress. The patient appeared well nourished and normally developed. Vital signs as documented. Head exam is unremarkable. No scleral icterus . Neck is without jugular venous distension, thyromegaly, or carotid bruits. Lungs are clear to auscultation. Cardiac exam reveals regular rate and Rhythm. First and second heart sounds normal. No murmurs, rubs or gallops. Abdominal exam reveals distended abdomen, nontender, no guarding or rigidity. Extremities are nonedematous and both femoral and pedal pulses are normal. 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 No focal weakness. - Constitutional Vitals: Temp Pulse Resp BP Pulse Ox 97.6 F 92 H 17 105/54 96 07/23/17 06:05 07/23/17 06:30 07/23/17 06:30 07/23/17 06:30 07/23/17 06:30 Results - Labs CBC & Chem 7: 07/23/17 09:03 07/23/17 01:33 Labs: Laboratory Last Values WBC 11.8 K/mm3 (4.5-11.0) H 07/23/17 01:33 RBC 2.84 M/mm3 (3.65-5.03) L 07/23/17 01:33 Hgb 6.8 gm/dl (10.1-14.3) L 07/23/17 01:33 Hct 22.4 % (30.3-42.9) L 07/23/17 01:33 MCV 79 fl (79-97) 07/23/17 01:33 MCH 24 pg (28-32) L 07/23/17 01:33 MCHC 30 % (30-34) 07/23/17 01:33 RDW 24.5 % (13.2-15.2) H 07/23/17 01:33 Plt Count 117 K/mm3 (140-440) L 07/23/17 01:33 Lymph % (Auto) 8.0 % (13.4-35.0) L 07/23/17 01:33 [place] % (Auto) 11.1 % (0.0-7.3) H 07/23/17 01:33 Eos % (Auto) 1.2 % (0.0-4.3) 07/23/17 01:33 Baso % (Auto) 0.2 % (0.0-1.8) 07/23/17 01:33 Lymph # 0.9 K/mm3 (1.2-5.4) L 07/23/17 01:33 [place] # 1.3 K/mm3 (0.0-0.8) H 07/23/17 01:33 Eos # 0.1 K/mm3 (0.0-0.4) 07/23/17 01:33 Baso # 0.0 K/mm3 (0.0-0.1) 07/23/17 01:33 Seg Neutrophils % 79.5 % (40.0-70.0) H 07/23/17 01:33 Seg Neutrophils # 9.4 K/mm3 (1.8-7.7) H 07/23/17 01:33 PT 18.1 Sec. (12.2-14.9) H 07/23/17 01:33 INR 1.42 (0.87-1.13) H 07/23/17 01:33 APTT 32.4 Sec. (24.2-36.6) 07/23/17 01:33 Sodium 138 mmol/L (137-145) 07/23/17 01:33 Potassium 4.0 mmol/L (3.6-5.0) 07/23/17 01:33 Chloride 97.3 mmol/L (98-107) L 07/23/17 01:33 Carbon Dioxide 24 mmol/L (22-30) 07/23/17 01:33 Anion Gap 21 mmol/L 07/23/17 01:33 BUN 37 mg/dL (7-17) H 07/23/17 01:33 Creatinine 1.1 mg/dL (0.7-1.2) 07/23/17 01:33 Estimated GFR 50 ml/min 07/23/17 01:33 BUN/Creatinine Ratio 34 % 07/23/17 01:33 Glucose 184 mg/dL (65-100) H 07/23/17 01:33 Calcium 8.4 mg/dL (8.4-10.2) 07/23/17 01:33 Total Bilirubin 1.40 mg/dL (0.1-1.2) H 07/23/17 01:33 AST 246 units/L (5-40) H 07/23/17 01:33 ALT 116 units/L (7-56) H 07/23/17 01:33 Alkaline Phosphatase 1080 units/L (35-129) H 07/23/17 01:33 Ammonia 38.0 umol/L (25-60) 07/23/17 01:33 Total Protein 5.9 g/dL (6.3-8.2) L 07/23/17 01:33 Albumin 2.7 g/dL (3.9-5) L 07/23/17 01:33 Albumin/Globulin Ratio 0.8 % 07/23/17 01:33 Blood Type O POSITIVE 07/23/17 01:42 Antibody Screen Negative 07/23/17 01:42 Crossmatch See Detail 07/23/17 01:42 Assessment and Plan Assessment and plan: 66-year-old female with past medical history significant for dementia , cirrhosis, chronic hep C, hepatic encephalopathy admitted to the floor for altered mental status Altered mental status - Likely due to worsening of dementia -Ammonia level is normal and it is unlikely to be due to hepatic encephalopathy Anemia - Multifactorial, will do anemia workup - hemoglobin in the ED was 6.8 and was transfused with PRBCs & posttransfusion hemoglobin is 9 Cirrhosis recommended to chronic hep C, hepatitis - GI consult appreciated - And recommended CT abdomen and pelvis Diabetes mellitus 2 - Continue sliding scale insulin DVT prophylaxis - SCDs because of anemia and elevated INR Disposition - Admit to Medr floor Advance Directives: Yes VTE prophylaxis?: Mechanical Reason for no VTE Prophylaxis: Blood coagulation disorde Plan of care discussed with patient/family: Yes
[2017-07-23] MEDS ORDERED: D50W (25GM) Syringe IV PRN (08:43)
--- NOTE | 2017-07-23 09:04 | Gastroenterology Consultation ---
History of Present Illness - Reason for Consult Consult date: 07/23/17 Hepatitis C, Cirrhosis Requesting physician: HAILY QUAN - History of Present Illness The patient is a 66 year old female sent from the long-term apparently for a UTI and altered mental status. GI consultation was requested for elevated LFTs , cirrhosis and possible hepatic encephalopathy. She has dementia and can give little history but is aware of advanced liver disease and hepatitis C. She does not know whether she has been treated and does not recall any current treating physicians. She has several comorbid conditions as below. No observed bleeding by chart review. Alk phos was 1080, AST 246, ALT 115, INR 1.42 Past History Past Medical History: COPD, diabetes, hepatitis (Hepatitis C and cirrhosis) Past Surgical History: Other (Unknown abdominal surgery.) Social history: other (unknown) Family history: other (unknown) Medications and Allergies Allergies Allergy/AdvReac Type Severity Reaction Status Date / Time No Known Allergies Allergy Verified 03/07/17 23:29 Home Medications Medication Instructions Recorded Confirmed Last Taken Type Bisacodyl [Dulcolax suppos] [address] ONCE PRN 01/10/17 07/23/17 Unknown History Sertraline [Zoloft] 150 mg PO QAM 01/10/17 07/23/17 03/07/17 History buPROPion XL [Wellbutrin XL] 150 mg PO QAM 01/10/17 07/23/17 01/09/17 History glyBURIDE [Diabeta] 2.5 mg PO DAILY 01/10/17 07/23/17 03/07/17 History HYDROcodone/APAP 5-325 [[place] 1 each PO Q6HR PRN #60 tablet 06/20/17 07/23/17 Unknown Rx 5-325 mg TAB] Insulin NPH/Regular [NovoLIN 70/30] 30 unit SQ QDAC #1 units 06/20/17 07/23/17 Unknown Rx Multivit with Calcium,Iron,Min 1 tab PO DAILY #30 tablet 06/20/17 07/23/17 Unknown Rx [Multiple Vitamins For Women] Pantoprazole [Protonix TAB] 20 mg PO QAM #30 tablet. 06/20/17 07/23/17 Unknown Rx Spironolactone [Aldactone] 50 mg PO BID #60 tablet 06/20/17 07/23/17 Unknown Rx traZODone [Desyrel] 50 mg PO QHS #30 tablet 06/20/17 07/23/17 Unknown Rx Active Meds: Active Medications Dextrose (D50w (25gm) Syringe) 50 ml IV PRN PRN PRN Reason: Hypoglycemia Sodium Chloride (Nacl 0.9% 1000 Ml) 1,000 mls @ 42 mls/hr IV DIRECT JEAN MARIE Last Admin: 07/23/17 07:15 Dose: 42 mls/hr Insulin Aspart (Novolog) 0 units SUB-Q ACHS JEAN MARIE PRN Reason: Protocol Review of Systems - Review of Systems ROS unobtainable: due to mental status Exam - Constitutional Vital Signs: Temp Pulse Resp BP Pulse Ox 97.7 F 96 H 12 94/59 97 07/23/17 07:30 07/23/17 07:30 07/23/17 07:30 07/23/17 07:30 07/23/17 07:30 General appearance: no acute distress, well-nourished, other (alert and cooperative) - EENT Eyes: PERRL ENT: hearing intact, clear oral mucosa - Neck Neck: supple, normal ROM, no masses or JVD - Respiratory Respiratory effort: normal Respiratory: bilateral: CTA - Breasts Breasts: deferred - Cardiovascular Rhythm: regular Heart Sounds: Present: S1 & S2. Absent: gallop, rub Extremity abnormal: edema (1 plus edema) - Gastrointestinal General gastrointestinal: Present: soft, non-tender, distended, normal bowel sounds, other (Probable 2 plus ascites. Long lower abdominal surgical scar). Absent: hepatomegaly, splenomegaly, mass Rectal Exam: deferred - Genitourinary Female Genitourinary: deferred - Integumentary Integumentary: Present: clear, warm, dry - Neurologic Neurological: oriented to person, oriented to time, other (not oriented to place although knows generally that she is in the hospital.) - Psychiatric Psychiatric: no appropriate mood/affect, no intact judgment & insight, no memory intact, cooperative - Labs CBC & Chem 7: 07/23/17 01:33 07/23/17 01:33 Lab Results: Laboratory Results - last 24 hr 07/23/17 07/23/17 07/23/17 01:33 01:33 01:33 WBC 11.8 H RBC 2.84 L Hgb 6.8 L Hct 22.4 L MCV 79 MCH 24 L MCHC 30 RDW 24.5 H Plt Count 117 L Lymph % (Auto) 8.0 L [place] % (Auto) 11.1 H Eos % (Auto) 1.2 Baso % (Auto) 0.2 Lymph # 0.9 L [place] # 1.3 H Eos # 0.1 Baso # 0.0 Seg Neutrophils % 79.5 H Seg Neutrophils # 9.4 H PT 18.1 H INR 1.42 H APTT 32.4 Sodium 138 Potassium 4.0 Chloride 97.3 L Carbon Dioxide 24 Anion Gap 21 BUN 37 H Creatinine 1.1 Estimated GFR 50 BUN/Creatinine Ratio 34 Glucose 184 H Calcium 8.4 Total Bilirubin 1.40 H AST 246 H ALT 116 H Alkaline Phosphatase 1080 H Ammonia Total Protein 5.9 L Albumin 2.7 L Albumin/Globulin Ratio 0.8 Blood Type Antibody Screen Crossmatch 07/23/17 07/23/17 01:33 01:42 WBC RBC Hgb Hct MCV MCH MCHC RDW Plt Count Lymph % (Auto) [place] % (Auto) Eos % (Auto) Baso % (Auto) Lymph # [place] # Eos # Baso # Seg Neutrophils % Seg Neutrophils # PT INR APTT Sodium Potassium Chloride Carbon Dioxide Anion Gap BUN Creatinine Estimated GFR BUN/Creatinine Ratio Glucose Calcium Total Bilirubin AST ALT Alkaline Phosphatase Ammonia 38.0 Total Protein Albumin Albumin/Globulin Ratio Blood Type O POSITIVE Antibody Screen Negative Crossmatch See Detail Assessment and Plan - Patient Problems (1) Anemia Current Visit: Yes Status: Acute Plan to address problem: Uncertain etiology. May need luminal GI work up but in light of dementia, will need guidance by family. (2) Altered mental status Current Visit: No Status: Acute Plan to address problem: Ammonia level is normal and she has no asterixis. Most of the AMS may therefore be from dementia. Will repeat ammonia level. (3) Cirrhosis Current Visit: No Status: Acute Plan to address problem: Likely has advanced cirrhosis. Rule out superimposed malignancy. Needs imaging. Will order CT abdomen with contrast. (4) Diabetes 1.5, managed as type 2 Current Visit: No Status: Acute
[2017-07-23 09:34] LABS: Hematocrit 30.8 % (30.3-42.9); Hemoglobin 9.6 gm/dl (10.1-14.3)
--- NOTE | 2017-07-23 10:51 | Cat Scan Report ---
CT scan of abdomen and pelvis with IV contrast: Compared to 06/15/17. History: Cirrhosis, elevated liver enzymes. Rule out hematoma Findings: Bilateral perihilar lung infiltrates. No pleural pericardial effusion. Nodular cirrhotic liver with borderline enlarged spleen. No mass within the liver. No intrahepatic duct dilatation. Normal gallbladder. No significant interval change. Large amount of ascitic fluid. Increase in ascitic fluid compared to previous study by approximately 30%. Normal pancreas. Minimal nodular thickening of adrenals without interval change. Cyst right kidney without interval change. Normal bladder. No free intraperitoneal air. No evidence of adenopathy. Gaseous colon with large volume stool in colon. The ascending colon is minimally edematous compared to previous study. Impression: Findings as detailed above. Marked Increase in ascitic fluid compared to previous study.
[2017-07-23] MEDS ORDERED: DULCOLAX PR PRN (12:56)
[2017-07-23] MEDS: NOVOLOG SUB-Q SCH ×3 (13:22→23:20)
[2017-07-23] MEDS: ALDACTONE PO SCH (23:10)
[2017-07-23] MEDS: DESYREL PO SCH (23:10)
[2017-07-23] MEDS: NORCO 5/325 PO PRN (23:11)
[2017-07-24 04:53] LABS: Basophils % (Auto) 0.2 % (0.0-1.8); Eosinophils # (Auto) 0.2 K/mm3 (0.0-0.4); Eosinophils % (Auto) 1.7 % (0.0-4.3); Hematocrit 31.2 % (30.3-42.9); Hemoglobin 9.7 gm/dl (10.1-14.3); Lymphocytes # (Auto) 0.9 K/mm3 (1.2-5.4); Lymphocytes % (Auto) 9.4 % (13.4-35.0); Mean Corpuscular HGB Conc 31 % (30-34); Mean Corpuscular Hemoglobin 26 pg (28-32); Mean Corpuscular Volume 84 fl (79-97); Monocytes # (Auto) 0.9 K/mm3 (0.0-0.8); Monocytes % (Auto) 9.4 % (0.0-7.3); Platelet Count 104 K/mm3 (140-440); Red Blood Count 3.73 M/mm3 (3.65-5.03)
[2017-07-24 05:17] LABS: Albumin 2.5 g/dL (3.9-5); Calcium 7.8 mg/dL (8.4-10.2)
[2017-07-24] MEDS: NOVOLOG SUB-Q SCH ×5 (08:06→23:17)
[2017-07-24] MEDS: ZOLOFT PO SCH (10:28)
[2017-07-24] MEDS: NACL 0.9% 1000 ML 1,000 ML IV SCH (10:28)
[2017-07-24] MEDS: WELLBUTRIN XL PO SCH (10:29)
[2017-07-24] MEDS: ALDACTONE PO SCH ×2 (10:29→21:44)
[2017-07-24] MEDS: PROTONIX PO SCH (10:29)
--- NOTE | 2017-07-24 10:52 | Gastroenterology Progress Note ---
Assessment and Plan - Patient Problems (1) Anemia Current Visit: Yes Status: Acute (2) Altered mental status Current Visit: No Status: Acute Plan to address problem: Improving (3) Cirrhosis Current Visit: No Status: Acute Plan to address problem: Advanced cirrhosis. Hx hepatitis C. Large volume ascites. Will stop IVF, plan paracentesis and adjust diuretics post paracentesis. (4) Diabetes 1.5, managed as type 2 Current Visit: No Status: Acute Subjective Date of service: 07/24/17 Principal diagnosis: Cirrhosis, ascites Interval history: The patient reports feeling weak, but has no pain. Objective - Constitutional Vitals: Temp Pulse Resp BP Pulse Ox 98.4 F 96 H 18 91/53 100 07/24/17 07:45 07/24/17 10:29 07/24/17 07:45 07/24/17 10:29 07/24/17 07:45 General appearance: no acute distress - EENT ENT: hearing intact, clear oral mucosa, dentition normal - Respiratory Respiratory effort: normal Respiratory: bilateral: CTA - Cardiovascular Rhythm: regular - Gastrointestinal General gastrointestinal: Present: soft, non-tender, distended (3 plus ascites, not tense), normal bowel sounds. Absent: hepatomegaly, splenomegaly - Neurologic Neurological: alert and oriented x3 - Labs CBC & Chem 7: 07/24/17 04:21 07/24/17 04:21 Labs: Laboratory Results - last 24 hr 07/23/17 07/23/17 07/23/17 11:07 13:05 17:21 WBC RBC Hgb Hct MCV MCH MCHC RDW Plt Count Lymph % (Auto) [place] % (Auto) Eos % (Auto) Baso % (Auto) Lymph # [place] # Eos # Baso # Seg Neutrophils % Seg Neutrophils # Sodium Potassium Chloride Carbon Dioxide Anion Gap BUN Creatinine Estimated GFR BUN/Creatinine Ratio Glucose POC Glucose 96 134 H 126 H Calcium Total Bilirubin AST ALT Alkaline Phosphatase Total Protein Albumin Albumin/Globulin Ratio 07/23/17 07/24/17 07/24/17 23:24 04:21 04:21 WBC 9.5 RBC 3.73 Hgb 9.7 L Hct 31.2 MCV 84 MCH 26 L MCHC 31 RDW 21.0 H Plt Count 104 L Lymph % (Auto) 9.4 L [place] % (Auto) 9.4 H Eos % (Auto) 1.7 Baso % (Auto) 0.2 Lymph # 0.9 L [place] # 0.9 H Eos # 0.2 Baso # 0.0 Seg Neutrophils % 79.3 H Seg Neutrophils # 7.5 Sodium 140 Potassium 4.5 Chloride 102.1 Carbon Dioxide 26 Anion Gap 16 BUN 31 H Creatinine 1.0 Estimated GFR 56 BUN/Creatinine Ratio 31 Glucose 70 POC Glucose 88 Calcium 7.8 L Total Bilirubin 1.80 H AST 86 H ALT 80 H Alkaline Phosphatase 803 H Total Protein 5.6 L Albumin 2.5 L Albumin/Globulin Ratio 0.8 07/24/17 07/24/17 07:50 09:11 WBC RBC Hgb Hct MCV MCH MCHC RDW Plt Count Lymph % (Auto) [place] % (Auto) Eos % (Auto) Baso % (Auto) Lymph # [place] # Eos # Baso # Seg Neutrophils % Seg Neutrophils # Sodium Potassium Chloride Carbon Dioxide Anion Gap BUN Creatinine Estimated GFR BUN/Creatinine Ratio Glucose POC Glucose 60 L 113 H Calcium Total Bilirubin AST ALT Alkaline Phosphatase Total Protein Albumin Albumin/Globulin Ratio - Imaging CT scan: report reviewed (Large volume ascites. Nodular liver without focal lesions)
--- NOTE | 2017-07-24 12:26 | Progress Note ---
Assessment and Plan Assessment and Plan Assessment and plan: 66-year-old female with past medical history significant for dementia , cirrhosis, chronic hep C, hepatic encephalopathy admitted to the floor for altered mental status Altered mental status - Likely due to worsening of dementia -Ammonia level is normal and it is unlikely to be due to hepatic encephalopathy Anemia - Multifactorial, will do anemia workup - hemoglobin in the ED was 6.8 and was transfused with PRBCs & posttransfusion hemoglobin is 9 Cirrhosis recommended to chronic hep C, hepatitis - GI consult appreciated - And recommended CT abdomen and pelvis Diabetes mellitus 2 - Continue sliding scale insulin DVT prophylaxis - SCDs because of anemia and elevated INR Disposition - Admit to Medr floor Advance Directives: Yes VTE prophylaxis?: Mechanical Reason for no VTE Prophylaxis: Blood coagulation disorde Plan of care discussed with patient/family: Yes Subjective Date of service: 07/24/17 Principal diagnosis: Cirrhosis, ascites Objective - Constitutional Vitals: Vital Signs - 12hr 07/24/17 07/24/17 07/24/17 03:25 05:27 07:45 Temperature 97.6 F 98.4 F Pulse Rate 97 H 94 H 96 H Respiratory 18 18 Rate Blood Pressure 90/53 91/53 O2 Sat by Pulse 96 100 Oximetry 07/24/17 10:29 Temperature Pulse Rate 96 H Respiratory Rate Blood Pressure 91/53 O2 Sat by Pulse Oximetry General appearance: Present: no acute distress, well-nourished - EENT Eyes: PERRL, EOM intact ENT: hearing intact, clear oral mucosa Ears: bilateral: normal - Neck Neck: supple, normal ROM - Respiratory Respiratory effort: normal Respiratory: bilateral: CTA - Breasts Breasts: normal - Cardiovascular Rhythm: regular Heart Sounds: Present: S1 & S2. Absent: gallop, rub Extremities: pulses intact, No edema, normal color, Full ROM - Gastrointestinal General gastrointestinal: Present: soft, non-tender, non-distended, normal bowel sounds - Genitourinary Female genitourinary: normal - Integumentary Integumentary: clear, warm, dry - Musculoskeletal Musculoskeletal: 1, strength equal bilaterally - Neurologic Neurologic: moves all extremities - Psychiatric Psychiatric: memory intact, appropriate mood/affect, intact judgment & insight - Labs CBC & Chem 7: 07/24/17 04:21 07/24/17 04:21 Labs: Abnormal lab results 07/23/17 07/23/1718 Range/Units 13:05 17:21 04:21 Hgb 9.7 L (10.1-14.3) gm/dl MCH 26 L (28-32) pg RDW 21.0 H (13.2-15.2) % Plt Count 104 L (140-440) K/mm3 Lymph % (Auto) 9.4 L (13.4-35.0) % [place] % (Auto) 9.4 H (0.0-7.3) % Lymph # 0.9 L (1.2-5.4) K/mm3 [place] # 0.9 H (0.0-0.8) K/mm3 Seg Neutrophils % 79.3 H (40.0-70.0) % BUN (7-17) mg/dL POC Glucose 134 H 126 H (70-105) Calcium (8.4-10.2) mg/dL Total Bilirubin (0.1-1.2) mg/dL AST (5-40) units/L ALT (7-56) units/L Alkaline Phosphatase (35-129) units/L Total Protein (6.3-8.2) g/dL Albumin (3.9-5) g/dL 07/24/17 07/24/17 07/24/17 Range/Units 04:21 07:50 09:11 Hgb (10.1-14.3) gm/dl MCH (28-32) pg RDW (13.2-15.2) % Plt Count (140-440) K/mm3 Lymph % (Auto) (13.4-35.0) % [place] % (Auto) (0.0-7.3) % Lymph # (1.2-5.4) K/mm3 [place]ff[place] # (0.0-0.8) K/mm3 Seg Neutrophils % (40.0-70.0) % BUN 31 H (7-17) mg/dL POC Glucose 60 L 113 H (70-105) Calcium 7.8 L (8.4-10.2) mg/dL Total Bilirubin 1.80 H (0.1-1.2) mg/dL AST 86 H (5-40) units/L ALT 80 H (7-56) units/L Alkaline Phosphatase 803 H (35-129) units/L Total Protein 5.6 L (6.3-8.2) g/dL Albumin 2.5 L (3.9-5) g/dL
[2017-07-24 15:37] LABS: Bacteria,Urine 1+ /HPF (Negative); Bilirubin,Urine NEG (Negative); Blood,Urine NEG (Negative); Calcium Oxalate Crystals,Urine FEW; Color,Urine Amber (Yellow); Hyaline Casts,Urine 25 /LPF; Mucus,Urine FEW /HPF; Nitrite,Urine NEG (Negative); Protein,Urine <15 mg/dL mg/dL (Negative); Urobilinogen,Urine < 2.0 mg/dL (<2.0)
[2017-07-24] MEDS: DESYREL PO SCH (21:44)
[2017-07-25] MEDS: NOVOLOG SUB-Q SCH ×4 (07:33→22:22)
[2017-07-25] MEDS: ZOLOFT PO SCH (09:13)
[2017-07-25] MEDS: PROTONIX PO SCH (09:14)
[2017-07-25] MEDS: ALDACTONE PO SCH ×3 (09:14→22:47)
[2017-07-25] MEDS: WELLBUTRIN XL PO SCH (09:14)
--- NOTE | 2017-07-25 10:46 | Event Note ---
Date: 07/25/17 Patient off floor having paracentesis.
--- NOTE | 2017-07-25 11:11 | Ultrasound Report ---
ULTRASOUND-GUIDED PARACENTESIS INDICATION: Large volume ascites. Liver disease. COMPARISON: None similar. FINDINGS: After explaining the risk and benefits to the patient, written informed consent obtained. Using ultrasound guidance, an appropriate skin site in the right lower quadrant marked. Skin prepped and draped in the usual sterile fashion. 1% Xylocaine used for local anesthesia. Using ultrasound guidance, a 5 Polish Yueh catheter was placed into the fluid collection and 6800 cc of straw-colored fluid aspirated. Sample sent to laboratory. Catheter removed and hemostasis achieved. Patient tolerated the procedure well and left the radiology department in stable condition. CONCLUSION: Ultrasound guided paracentesis, as described above. IV albumin to be given on the floor. Dr. Cruz present for and performed the entire procedure. Thank you for the opportunity to participate in this patient's care.
[2017-07-25] MEDS ORDERED: ZOFRAN IV PRN (11:22)
[2017-07-25] MEDS: NORCO 5/325 PO PRN (12:55)
[2017-07-25 13:35] LABS: Total Cells Counted 100 /mm3
--- NOTE | 2017-07-25 14:51 | Procedure Note ---
Date of procedure: 07/25/17 Pre-op diagnosis: Cirrhosis, ascites Post-op diagnosis: same Procedure: US guided paracentesis. Findings: 6800 cc yellow serous fluid removed. Anesthesia: local Surgeon: LAKIA TOPETE Estimated blood loss: none Specimen disposition: to lab Condition: stable Disposition: floor
--- NOTE | 2017-07-25 17:36 | Gastroenterology Progress Note ---
Assessment and Plan - Patient Problems (1) Cirrhosis Current Visit: No Status: Acute Plan to address problem: - Will resume xifaxan BID, and give lactulose x 3 days. - I would hold her narcotics while still mildly confused (but should be noted patient has a baseline issue with mentation/memory). - OK to d/c home per our service when taking PO and no severe N/V/abdominal pain. Subjective Date of service: 07/25/17 Principal diagnosis: Cirrhosis, ascites Interval history: The patient is s/p the removal of almost 7 liters of fluid. She feels better and denies severe pain, N/V, or fevers. Her mentation is poor, but near her baseline from prior admits. Objective - Constitutional Vitals: Temp Pulse Resp BP Pulse Ox 97.6 F 109 H 16 75/45 96 07/25/17 13:24 07/25/17 13:24 07/25/17 13:24 07/25/17 13:24 07/25/17 13:24 General appearance: no acute distress - EENT ENT: hearing intact - Neck Neck: supple - Respiratory Respiratory effort: normal Respiratory: bilateral: CTA - Cardiovascular Rhythm: regular Heart Sounds: Present: S1 & S2 - Gastrointestinal General gastrointestinal: Present: soft, non-tender, non-distended - Labs CBC & Chem 7: 07/24/17 04:21 07/24/17 04:21 Labs: Laboratory Results - last 24 hr 07/24/17 07/25/17 07/25/17 22:53 07:13 11:36 POC Glucose 101 84 90 Fluid Type Fluid Color Fluid Appearance Fluid WBC Fluid RBC Fluid Seg Neutrophils Fluid Lymphocytes Fluid Reactive Lymphs Fluid Monocytes Fluid Eosinophils Fluid Basophils 07/25/17 07/25/17 16:13 Unknown POC Glucose 122 H Fluid Type Ascitic Fluid Color Straw Fluid Appearance Clear Fluid WBC 30 Fluid RBC 45 Fluid Seg Neutrophils 17.0 Fluid Lymphocytes 20.0 Fluid Reactive Lymphs Not Reportable Fluid Monocytes 63.0 Fluid Eosinophils Not Reportable Fluid Basophils Not Reportable
[2017-07-25] MEDS: XIFAXAN PO SCH (22:46)
[2017-07-25] MEDS: DESYREL PO SCH (22:46)
[2017-07-26] MEDS: NOVOLOG SUB-Q SCH ×3 (07:55→11:24)
[2017-07-26] MEDS: ZOLOFT PO SCH (09:23)
[2017-07-26] MEDS: XIFAXAN PO SCH (09:23)
[2017-07-26] MEDS: PROTONIX PO SCH (09:24)
[2017-07-26] MEDS: ALDACTONE PO SCH (09:24)
--- NOTE | 2017-07-26 09:28 | Gastroenterology Progress Note ---
Assessment and Plan 1.Cirrhosis -s/p paracentesis yesterday with removal of almost 7L of fluid -clinically pt is w/o GI complaints (denies abd pain or N/V) -continue xifaxan and lactulose -avoid narcotics due to mild confusion (pt has a baseline issue with mentation/ memory) -continue supportive care -no further recommendation from a GI standpoint at this time -will sign off, please re-consult if needed Subjective Date of service: 07/26/17 Principal diagnosis: Cirrhosis, ascites Interval history: Patient resting in bed this am w/o acute distress. Reports feeling better s/p paracentesis yesterday. Denies abd pain or N/V. Objective - Constitutional Vitals: Temp Pulse Resp BP Pulse Ox 97.9 F 106 H 18 94/57 99 07/26/17 07:29 07/26/17 07:29 07/26/17 07:29 07/26/17 07:29 07/26/17 07:29 General appearance: no acute distress - Respiratory Respiratory: bilateral: CTA - Cardiovascular Rhythm: other (tachycardia) Heart Sounds: Present: S1 & S2 - Gastrointestinal General gastrointestinal: Present: soft, non-tender, non-distended, normal bowel sounds - Labs CBC & Chem 7: 07/24/17 04:21 07/24/17 04:21 Labs: Laboratory Results - last 24 hr 07/25/17 07/25/17 07/25/17 11:36 16:13 21:52 POC Glucose 90 122 H 137 H Fluid Type Fluid Color Fluid Appearance Fluid WBC Fluid RBC Fluid Seg Neutrophils Fluid Lymphocytes Fluid Reactive Lymphs Fluid Monocytes Fluid Eosinophils Fluid Basophils 07/25/17 07/26/17 Unknown 07:35 POC Glucose 90 Fluid Type Ascitic Fluid Color Straw Fluid Appearance Clear Fluid WBC 30 Fluid RBC 45 Fluid Seg Neutrophils 17.0 Fluid Lymphocytes 20.0 Fluid Reactive Lymphs Not Reportable Fluid Monocytes 63.0 Fluid Eosinophils Not Reportable Fluid Basophils Not Reportable
[2017-07-26] MEDS: WELLBUTRIN XL PO SCH (09:30)
[2017-07-26] MEDS ORDERED: CEPHULAC PO SCH (10:00)
--- NOTE | 2017-07-26 14:10 | Discharge Summary ---
Providers - Providers Date of Admission: 07/23/17 04:40 Date of discharge: 07/26/17 Attending physician: ASHELY MERRILL 07/23/17 07:46 Consult to Physician [CONS] Routine Consulting Provider: SAPNA RAI Reason For Exam: anemia, transamnitis Place consult to:: Emmie gastro Notified:: YES Was contact made?: Yes If yes, spoke with:: DR. RAI Time called:: 08:38 Comment:: GOSIA 07/23/17 18:36 Consult to Wound/ET Nurse [CONS] Routine Reason For Exam: wound eval Primary care physician: JOI RAMIREZ Hospitalization Reason for admission: ascites Condition: Stable Hospital course: The patient is a 66 year old female [facility] apparently for altered mental status and anemia. GI consultation was requested for elevated LFTs, cirrhosis and possible hepatic encephalopathy. She has dementia and gave little history but is aware of advanced liver disease and hepatitis C. She does not know whether she has been treated and does not recall any current treating physicians. She has several comorbid conditions as below. No observed bleeding was noted during the hospitalization. Alk phos was 1080, AST 246, ALT 115, INR 1.42. The patient underwent paracentesis on 07/23/17 with removal of almost 7L of fluid. She has all the patient in consultation and felt patient was clinically improved and offered no further recommendations after paracentesis. Altered mental status was felt to be secondary to worsening dementia. Ammonia level was normal and unlikely due to hepatic encephalopathy. Patient received PRBCs for the anemia with posttransfusion hemoglobin of 9. Dedicated discharge time 34 minutes. Disposition: DC/[place]-03 [facility] Time spent for discharge: 34 - Discharge Diagnoses (1) Anemia Status: Acute Comment: She was symptomatic anemia most likely secondary to chronic disease hepatitis C colitis. Could have some blood loss. H&H is remaining relatively stable after being transfused. We do have access to repeat hemoglobin and hematocrit. (2) Altered mental status Status: Acute Comment: Multifactorial as mentioned in hospital course #1 hepatic encephalopathy #2 UTI #3 symptomatic anemia (3) Cirrhosis Status: Acute Comment: Patient with hepatitis C cirrhosis. We'll start patient lactulose twice a day also started on Xifaxan as well. Lasix and Aldactone short doses for ascites will need to watch closely for dehydration multivitamin. Avoid narcotic agents. Patient I believe is failed outpatient treatment for hepatitis C virus will follow-up daily notes from GI (4) Diabetes Status: Acute Comment: Have fair control her diabetes. Will not adjust too much patient due to somewhat decreased by mouth intake. Improve his depression improved once she gets back in her environment. (5) Encephalopathy Status: Acute Core Measure Documentation - Palliative Care Palliative Care/ Comfort Measures: Palliative Care/Comfort Measures - Core Measures Any of the following diagnoses?: none Exam - Constitutional Vitals: Temp Pulse Resp BP Pulse Ox 97.9 F 106 H 18 97/57 99 07/26/17 07:29 07/26/17 10:00 07/26/17 07:29 07/26/17 09:24 07/26/17 07:29 General appearance: Present: no acute distress, well-nourished - EENT Eyes: Present: PERRL ENT: hearing intact, clear oral mucosa - Neck Neck: Present: supple, normal ROM - Respiratory Respiratory effort: normal Respiratory: bilateral: CTA - Cardiovascular Heart Sounds: Present: S1 & S2. Absent: rub, click - Extremities Extremities: pulses symmetrical, No edema Peripheral Pulses: within normal limits - Abdominal General gastrointestinal: Present: soft, non-tender, non-distended, normal bowel sounds Female genitourinary: Present: normal - Integumentary Integumentary: Present: clear, warm, dry - Musculoskeletal Musculoskeletal: gait normal, strength equal bilaterally - Psychiatric Psychiatric: appropriate mood/affect, intact judgment & insight - Neurologic Neurologic: CNII-XII intact, moves all extremities Plan Activity: advance as tolerated Weight Bearing Status: Weight Bear as Tolerated Diet: other (fluid restrict 1L) Follow up with: JOI RAMIREZ MD [Primary Care Provider] - 7 Days
[2017-07-26 14:22] VITALS: BP 95/53
--- NOTE | 2017-07-26 14:49 | Query- Nutrition ---
Stanford Desai Date:___07/26/2017 Supervisor In Charge/CDS:___Jaz Phone#:___[phone] Exercise your independent professional judgment when responding to query. Questions asked do not imply a particular answer is desired or expected. We greatly appreciate your clarification on this issue. Clinical Documentation States: 66 Year old female was admitted on 07/23/2017 for AMS. The Hospitalist (Dr. Ontiveros) H&P note on 07/23/2017 states "Malnutrition - Nutrition consult." Clinical Findings Show: Albumin: 2.5 Please select the most appropriate option 3 [] Mild Malnutrition [x] Mild - Moderate Malnutrition [] Moderate - Severe Malnutrition [] Severe Malnutrition Serum Albumin 2.8 to 3.4 g/dl or Pre-albumin 5 to 17 mg/dl1,2 Inadequate nutritional intake1,2,3,4 NPO > 5 days Weight loss: 5% in 1 month or 7.5% in 3 months or 10% in 6 months1, 3,4 BMI 16 to 18.4 or Weight <90% of ideal body weight1,2,3,4 Serum Albumin < 2.8 g/ dl1,2 Lymphocytes < 1500/ L2 Inadequate nutritional intake3, high stress e.g. major trauma, sepsis,pancreatitis, hull etc. Decubitus ulcers1,2, , skin breakdown2, easy hair pluckability2 Weight <80% standard for height2 Triceps skin fold <3 mm2 Mid-arm muscle circumference <15 cm2 Creatinine-height index <60% standard2 [ ] Cachexia [ ] Emaciated w/Malnutrition [ ] Other: [ ] Unable to determine [ ] Comment/Explanation: Present on Admission: [x ] Yes (Y) [ ] Clinically undeterminable (W) [ ] No (N) Please also document response in your Progress Notes and/or Discharge Summary and indicate if the condition was present on admission. MTDD
--- NOTE | 2017-07-26 14:52 | Query-Altered Level of Consc. ---
Stanford Desai Date:___07/26/2017 Telephonic Nurse/CDS:____Jaz Phone#:__[phone] Exercise your independent professional judgment when responding to this query. Questions asked do not imply a particular answer is desired or expected. We greatly appreciate your clarification on this issue. Clinical Documentation States: 66 Year old female was admitted on 07/23/2017 for AMS. The IM (Dr. Lomeli) progress note on 07/24/2017 states "Altered mental status." Please provide an appropriate diagnosis clarifying the Etiology and Acuity of this clinical scenario: [x ] Metabolic Encephalopathy [ ] Toxic Encephalopathy [ ] Toxic - Metabolic Encephalopathy [ ] Septic Encephalopathy with Sepsis [ ] Septic Encephalopathy without Sepsis [ ] Acute Hepatic Encephalopathy [ ] Subacute Hepatic Encephalopathy [ ] Other: [ ] Unable To Determine [ ]Comment/Explanation: Present on Admission: [ x] Yes (Y) [ ] Clinically undeterminable (W) [ ] No (N) Please also document response in your Progress Notes and/or Discharge Summary and indicate if the condition was present on admission. MTDD
== END 2017-07-26 15:40 | disposition home or self-care (01) | DRG 432 ==
LOC: ED 23:56 → 3A 07-23 04:40 → 2B-ACE 07-23 06:15
PROVIDERS: ADMIT Internal Medicine; ATTEND Hospitalist
PROC: 30233N1 Transfusion of Nonautologous Red Blood Cells into Peripheral Vein, Percutaneous Approach (ICD-10-PCS; 2017-07-23)
PROC: 0W9G3ZX Drainage of Peritoneal Cavity, Percutaneous Approach, Diagnostic (ICD-10-PCS; principal; 2017-07-25)
DX: K74.60 Unspecified cirrhosis of liver (principal); G93.41 Metabolic encephalopathy; E44.0 Moderate protein-calorie malnutrition; N39.0 Urinary tract infection, site not specified; R18.8 Other ascites; D64.9 Anemia, unspecified; F03.90 Unspecified dementia, unspecified severity, without behavioral disturbance, psychotic disturbance, mood disturbance, and anxiety; I10 Essential (primary) hypertension; F32.9 Major depressive disorder, single episode, unspecified; J44.9 Chronic obstructive pulmonary disease, unspecified; F17.200 Nicotine dependence, unspecified, uncomplicated; N28.9 Disorder of kidney and ureter, unspecified; E11.9 Type 2 diabetes mellitus without complications; B18.2 Chronic viral hepatitis C; Z68.24 Body mass index [BMI] 24.0-24.9, adult; Z79.899 Other long term (current) drug therapy
CPT/HCPCS: 36415; 49083; 74177; 80053; 81001; 82040; 82140; 82962; 83036; 85018; 85025; 85610; 85730; 86850; 86900; 86901; 86920; 87116; 88112; 88305; 89051; J2405; J7030; J7040; P9016; Q9967

== ENCOUNTER 2017-08-12 07:38 | Day surgery (SDC) | payer MEDICARE ==
[2017-08-12 10:02] LABS: INR 1.31 (0.87-1.13)
[2017-08-12 10:03] LABS: Partial Thromboplastin Time 33.7 Sec. (24.2-36.6)
[2017-08-12] MEDS ORDERED: ALBURX 25% (ALBUMIN) IV ONE (11:36)
--- NOTE | 2017-08-12 12:21 | Short Stay Summary ---
Short Stay Documentation Date of service: 08/12/17 Narrative H&P: 66 year old female with ascites who presents for paracentesis. - History Principal diagnosis: Ascites H&P: obtained from office - Allergies and Medications Current Medications: Allergies No Known Allergies Allergy (Verified 03/07/17 23:29) Home Medications Medication Instructions Recorded Confirmed Last Taken Type Bisacodyl [Dulcolax suppos] 10 mg VT ONCE PRN 01/10/17 08/12/17 08/11/17 History Sertraline [Zoloft] 150 mg PO QAM 01/10/17 08/12/17 08/11/17 History glyBURIDE [Diabeta] 2.5 mg PO DAILY 01/10/17 08/12/17 08/11/17 History HYDROcodone/APAP 5-325 [[place] 1 each PO Q6HR PRN #60 tablet 06/20/17 08/12/17 Rx 5-325 mg TAB] Multivit with Calcium,Iron,Min 1 tab PO DAILY #30 tablet 06/20/17 08/12/1708/11 Rx [Multiple Vitamins For Women] Pantoprazole [Protonix TAB] 20 mg PO QAM #30 tablet. 06/20/17 08/12/17 Rx Spironolactone [Aldactone] 50 mg PO BID #60 tablet 06/20/17 08/12/17 08/11/17 Rx traZODone [Desyrel] 50 mg PO QHS #30 tablet 06/20/17 08/12/17 08/11/17 Rx Lactulose [Cephulac] 10 gm PO QDAY oral.liqd 07/26/17 08/12/17 08/11/17 Rx Rifaximin [Xifaxan] 550 mg PO BID tablet 07/26/17 08/12/17 08/11/17 Rx buPROPion XL [Wellbutrin XL] 150 mg PO QAM tablet 07/26/17 08/12/17 08/11/17 Rx Furosemide [Lasix] 20 mg PO QDAY 08/12/17 08/12/17 08/11/17 History Insulin NPH/Regular [NovoLIN 70/30] 1 - 10 unit SQ QDAC 08/12/17 08/12/17 History - Physical exam General appearance: no acute distress Gastrointestinal: distended - Brief post op/procedure progress note Date of procedure: 08/12/17 Pre-op diagnosis: Ascites Post-op diagnosis: same Procedure: us guided paracentesis Anesthesia: local (w/ conscious sedation) Surgeon: AVELINA HORN Estimated blood loss: minimal Condition: stable - Hospital course Hospital course: ready for discharge - Disposition Condition at discharge: Stable Disposition: DC-01 TO HOME OR SELFCARE - Discharge Diagnoses (1) Ascites Status: Acute Short Stay Discharge Plan Activity: advance as tolerated Weight Bearing Status: Weight Bear as Tolerated Diet: low salt, other (keep fluid to less than 1.5L per day ; salt less than 2 grams) Wound: keep clean and dry Follow up with: JOI RAMIREZ MD [Primary Care Provider] - 7 Days
[2017-08-12 13:14] VITALS: BP 85/50
--- NOTE | 2017-08-12 13:51 | Ultrasound Report ---
EXAM: Ultrasound guided needle placement in the peritoneal cavity Image guided paracentesis CLINICAL INDICATION: Ascites. DATE: 08/12/17 NATURE PHOTOGRAPHER: AVELINA HORN MD MEDICATIONS: Local anesthetic PROCEDURE: Following an explanation of the risks, benefits and alternatives; written informed consent was obtained. The patient was brought to the angiographic suite and positioned in a supine position. The abdomen was prepped and draped in a sterile fashion. The ascites was assessed with ultrasound and determined to be amenable to ultrasound-guided percutaneous drainage. The skin was infiltrated with lidocaine. The peritoneum was infiltrated with lidocaine under ultrasound guidance. Under ultrasound guidance a 5 Fr Yueh needle with valve was passed into the ascites. The Yueh needle was connected to a drainage bag and the abdominal ascites was aspirated. The Yueh needle was removed and a sterile dressing was applied. The patient tolerated the procedure well. There were no immediate postprocedural complications. FINDINGS: 1. Satisfactory window for ultrasound guided paracentesis. 2. A total of 6.5 L of fluid were removed. The fluid was straw yellow colored. IMPRESSION: Ultrasound guided paracentesis of the abdominal ascites.
== END 2017-08-12 13:25 | disposition home or self-care (01) ==
LOC: CATHLABREC 07:38 → EDSTATUS 09:00 → CATHLABREC 13:25
PROVIDERS: ATTEND Internal Medicine
DX: R18.8 Other ascites (principal); Z79.01 Long term (current) use of anticoagulants
CPT/HCPCS: 36415; 49083; 85610; 85730; 96365; P9047

== ENCOUNTER 2017-08-28 14:08 | Inpatient (IN) | payer MEDICARE ==
[2017-08-28] MEDS: D50W (25GM) Syringe IV ONE ×2 (14:13→16:23)
[2017-08-28] MEDS ORDERED: D50W (25GM) Syringe IV ONE ×3 (14:19→14:37)
[2017-08-28] MEDS ORDERED: NACL 0.9% 1000 ML 2,000 ML ONE (14:23)
[2017-08-28] MEDS ORDERED: NACL 0.9% 500 ML 500 ML IV ONE (14:30)
[2017-08-28] MEDS ORDERED: NACL 0.9% 1000 ML 1,000 ML IV ONE ×2 (14:35→16:26)
[2017-08-28 15:19] LABS: Hematocrit 32.5 % (30.3-42.9); Hemoglobin 9.9 gm/dl (10.1-14.3); Mean Corpuscular HGB Conc 31 % (30-34); Mean Corpuscular Hemoglobin 27 pg (28-32); Mean Corpuscular Volume 87 fl (79-97); Platelet Count 201 K/mm3 (140-440); Red Blood Count 3.73 M/mm3 (3.65-5.03)
[2017-08-28 15:31] LABS: INR 1.75 (0.87-1.13)
[2017-08-28 15:40] LABS: Albumin 1.9 g/dL (3.9-5); Calcium 7.4 mg/dL (8.4-10.2)
[2017-08-28 15:41] LABS: Red Cell Distribution Width 24.5 % (13.2-15.2)
[2017-08-28 15:54] LABS: Creatine Kinase MB 4.7 ng/mL (0.0-4.0)
[2017-08-28 15:59] LABS: Basophils % (Manual) 0 % (0.0-1.8); Eosinophils % (Manual) 0 % (0.0-4.3); Total Cells Counted 100
[2017-08-28 16:00] LABS: Anisocytosis 2+; Poikilocytosis 1+
[2017-08-28 16:01] LABS: Ovalocytes Few; Platelet Estimate Consistent w Auto
--- NOTE | 2017-08-28 16:16 | Emergency Department Report ---
HPI - General Chief Complaint: Hypoglycemia Time Seen by Provider: 08/28/17 15:04 - HPI HPI: The patient uses 66-year-old female whom presents from a nursing facility with difficulty breathing and altered mental status. 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) Additional medical history: anemia - Surgical History Additional Surgical History: hyst - Social History Smoking Status: Former Smoker - Medications Home Medications: Home Medications Medication Instructions Recorded Confirmed Last Taken Type Bisacodyl [Dulcolax suppos] 10 mg GA ONCE PRN 01/10/17 08/12/17 08/11/17 History Sertraline [Zoloft] 150 mg PO QAM 01/10/17 08/12/17 08/11/17 History glyBURIDE [Diabeta] 2.5 mg PO DAILY 01/10/17 08/12/17 08/11/17 History HYDROcodone/APAP 5-325 [[place] 1 each PO Q6HR PRN #60 tablet 06/20/17 08/12/17 Rx 5-325 mg TAB] Multivit with Calcium,Iron,Min 1 tab PO DAILY #30 tablet 06/20/17 08/12/1708/11 Rx [Multiple Vitamins For Women] Pantoprazole [Protonix TAB] 20 mg PO QAM #30 tablet. 06/20/17 08/12/17 Rx Spironolactone [Aldactone] 50 mg PO BID #60 tablet 06/20/17 08/12/17 08/11/17 Rx traZODone [Desyrel] 50 mg PO QHS #30 tablet 06/20/17 08/12/17 08/11/17 Rx Lactulose [Cephulac] 10 gm PO QDAY oral.liqd 07/26/17 08/12/17 08/11/17 Rx Rifaximin [Xifaxan] 550 mg PO BID tablet 07/26/17 08/12/17 08/11/17 Rx buPROPion XL [Wellbutrin XL] 150 mg PO QAM tablet 07/26/17 08/12/17 08/11/17 Rx Furosemide [Lasix] 20 mg PO QDAY 08/12/17 08/12/17 08/11/17 History Insulin NPH/Regular [NovoLIN 70/30] 1 - 10 unit SQ QDAC 08/12/17 08/12/17 History ED Review of Systems ROS: Stated complaint: HYPOGLYCEMIA Other details as noted in HPI Comment: Unobtainable due to pts medical conditions Physical Exam - Physical Exam Vital Signs: Vital Signs 08/28/17 14:23 Temperature 95.4 F L Pulse Rate 100 H Respiratory 10 L Rate Blood Pressure 70/33 O2 Sat by Pulse 90 Oximetry Physical Exam: General: well-nourished, well-developed, no acute distress Head: Normocephalic, atraumatic Eyes: normal sclera ENT: Mucous membranes are pale and dry Neck: No neck stiffness, no cervical adenopathy Respiratory: Patient tachypnea, diminished breath sounds and crackles present to bilateral lung whitaker Cardio: S1 and S2 present, no murmurs, rubs, gallops, capillary refill is delayed Abdomen: Normoactive bowel sounds, soft abdomen, no rigidity, no guarding or rebound tenderness Chest WALL/Back: No tenderness to palpation of the chest wall, no CVA tenderness with percussion Musc: 1+ pitting edema of legs Skin: No rash Neuro: Alert, responsive to painful stimuli, moves extremities pain was similar , unresponsive verbal similar, nonverbal, contractures of bilateral extremities , unable to assess reflexes, sensation, or motor function Psych: Normal affect ED Course Vital Signs 08/28/17 14:23 Temperature 95.4 F L Pulse Rate 100 H Respiratory 10 L Rate Blood Pressure 70/33 O2 Sat by Pulse 90 Oximetry - Central Line Placement Left IJ Consent Obtained: emergent situation Time Out Performed: Yes ([id number]) Patient Placed on Monitor/Pulse Ox: Yes Prep: mask, gown, gloves Central Line Prep: Chlorhexidine scrub Local Anesthesia Used: Lidocaine 1% Amount of Anesthesia Used (mls): 2 Ultrasound Used for Placement: Yes Central Line Lumen Inserted: triple Bloods Obtained for Lab: Yes Central Line Position: good blood return, all ports aspirated, flus, sutured in place with 3-0 Dressing Applied: Tegaderm, sterile gauze/tape Patient Tolerated Procedure: well, no complications Complications: none ED Medical Decision Making - Lab Data Result diagrams: 08/28/17 14:47 08/28/17 14:47 - Medical Decision Making The patient was seen and examined by myself. The patient is placed on a cardiac monitor technician and continuous pulse ox. On initial evaluation, the patient was found to be in mild respiratory distress, with low blood pressure 70/33. Evaluation orders were placed. IV access is unable to be established and a left femoral central line was placed. X-ray of the chest exhibits bilateral interstitial infiltrates. The patient is admnistered multiple boluses of normal saline for treatment of her hypovolemia shock. Multiple bedside assessments were performed to assess patient responsiveness to fluids resuscitation. Lab results reveal leukocytosis, WBC 18, elevated creatinine, elevated lactic acid 2, and elevated urine WBC with positive leukocyte esterase, consistent with acute urinary tract infection. The patient's masses Zosyn for treatment of UTI and potential acute pneumonia. The on-call hospitalist service was contacted. They agreed to admit the patient for further treatment and close monitoring. The ED admit order was placed. The patient was admitted in guarded condition. Critical Care Time: Yes Critical care time in (mins) excluding proc time.: 35 Critical care attestation.: Due to the critical nature of this patients presentation, which necessitated multiple bedside assessments, manipulation and supportive measures to prevent further life threatening deterioration, I would like to bill for a total of 35 minutes of critical care time. This was exclusive of any separately billable procedures. Critical Care Time: 35 minutes ED Disposition Clinical Impression: Hyperammonemia, Hypovolemic shock, Hypoglycemia UTI (urinary tract infection) Qualifiers: Urinary tract infection type: acute cystitis Hematuria presence: without hematuria Qualified Code(s): N30.00 - Acute cystitis without hematuria Cirrhosis Qualifiers: Hepatic cirrhosis type: unspecified hepatic cirrhosis Ascites presence: without ascites Qualified Code(s): K74.60 - Unspecified cirrhosis of liver Pneumonia Qualifiers: Pneumonia type: due to unspecified organism Laterality: bilateral Lung location : lower lobe of lung Qualified Code(s): J18.9 - Pneumonia, unspecified organism Clinical Impression: (Ruled Out): DVT prophylaxis Disposition: DC09 OP ADMIT IP TO THIS HOSP Is pt being admited?: Yes Does the pt Need Aspirin: Yes Condition: Critical Instructions: Bacterial Pneumonia (ED) Time of Disposition: 16:12
[2017-08-28 16:26] LABS: Bacteria,Urine 1+ /HPF (Negative); Bilirubin,Urine NEG (Negative); Blood,Urine NEG (Negative); Color,Urine Amber (Yellow); Hyaline Casts,Urine 1 /LPF; Mucus,Urine FEW /HPF; Nitrite,Urine NEG (Negative); Protein,Urine <15 mg/dL mg/dL (Negative)
[2017-08-28] MEDS ORDERED: ZOSYN/NS 3.375GM/50ML 3.375 GM/50 ML BAG IV SCH ×2 (17:00→18:00)
[2017-08-28] MEDS: ZOSYN/NS 2.25 GM/50ML 2.25 GM/50 ML BAG IV SCH (17:47)
--- NOTE | 2017-08-28 21:51 | History and Physical Report ---
History of Present Illness Date of examination: 08/28/17 Date of admission: 08/28/17 Chief complaint: CC Severe confusion and Lethargy for 1 day History of present illness: JIE 66-year-old femalewith multiple admissions comes in for severe confusion and Lethargy.Has difficulty breathing. Presents from a nursing facility with difficulty breathing and altered mental status.patient was recently disharged after being treated for Hepatic encephalopathy.No fever or chills Recent Discharge summary from 07/26/17 -----The patient is a 66 year old female sent from the longterm apparently for altered mental status and anemia. GI consultation was requested for elevated LFTs, cirrhosis and possible hepatic encephalopathy. She has dementia and gave little history but is aware of advanced liver disease and hepatitis C. She does not know whether she has been treated and does not recall any current treating physicians. She has several comorbid conditions as below. No observed bleeding was noted during the hospitalization. Alk phos was 1080, AST 246, ALT 115, INR 1.42. The patient underwent paracentesis on 07/23/17 with removal of almost 7L of fluid. She has all the patient in consultation and felt patient was clinically improved and offered no further recommendations after paracentesis. Altered mental status was felt to be secondary to worsening dementia. Ammonia level was normal and unlikely due to hepatic encephalopathy. Patient received PRBCs for the anemia with posttransfusion hemoglobin of 9. 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) Additional medical history: anemia - Surgical History Additional Surgical History: hyst - Social History Smoking Status: Former Smoker - Medications Home Medications: Home Medications Medication Instructions Recorded Confirmed Last Taken Type Bisacodyl [Dulcolax suppos] 10 mg MA ONCE PRN 01/10/17 08/12/17 08/11/17 History Sertraline [Zoloft] 150 mg PO QAM 01/10/17 08/12/17 08/11/17 History glyBURIDE [Diabeta] 2.5 mg PO DAILY 01/10/17 08/12/17 08/11/17 History HYDROcodone/APAP 5-325 [[place] 1 each PO Q6HR PRN #60 tablet 06/20/17 08/12/17 Rx 5-325 mg TAB] Multivit with Calcium,Iron,Min 1 tab PO DAILY #30 tablet 06/20/17 08/12/1708/11 Rx [Multiple Vitamins For Women] Pantoprazole [Protonix TAB] 20 mg PO QAM #30 tablet. 06/20/17 08/12/17 Rx Spironolactone [Aldactone] 50 mg PO BID #60 tablet 06/20/17 08/12/17 08/11/17 Rx traZODone [Desyrel] 50 mg PO QHS #30 tablet 06/20/17 08/12/17 08/11/17 Rx Lactulose [Cephulac] 10 gm PO QDAY oral.liqd 07/26/17 08/12/17 08/11/17 Rx Rifaximin [Xifaxan] 550 mg PO BID tablet 07/26/17 08/12/17 08/11/17 Rx buPROPion XL [Wellbutrin XL] 150 mg PO QAM tablet 07/26/17 08/12/17 08/11/17 Rx Furosemide [Lasix] 20 mg PO QDAY 08/12/17 08/12/17 08/11/17 History Insulin NPH/Regular [NovoLIN 70/30] 1 - 10 unit SQ QDAC 08/12/17 08/12/17 History Review of Systems ROS: Comment: Unobtainable due to pts medical conditions Medications and Allergies Allergies Allergy/AdvReac Type Severity Reaction Status Date / Time No Known Allergies Allergy Verified 03/07/17 23:29 Home Medications Medication Instructions Recorded Confirmed Last Taken Type Bisacodyl [Dulcolax suppos] 10 mg MA ONCE PRN 01/10/17 08/12/17 08/11/17 History Sertraline [Zoloft] 150 mg PO QAM 01/10/17 08/12/17 08/11/17 History glyBURIDE [Diabeta] 2.5 mg PO DAILY 01/10/17 08/12/17 08/11/17 History HYDROcodone/APAP 5-325 [[place] 1 each PO Q6HR PRN #60 tablet 06/20/17 08/12/17 Rx 5-325 mg TAB] Multivit with Calcium,Iron,Min 1 tab PO DAILY #30 tablet 06/20/17 08/12/1708/11 Rx [Multiple Vitamins For Women] Pantoprazole [Protonix TAB] 20 mg PO QAM #30 tablet. 06/20/17 08/12/17 Rx Spironolactone [Aldactone] 50 mg PO BID #60 tablet 06/20/17 08/12/17 08/11/17 Rx traZODone [Desyrel] 50 mg PO QHS #30 tablet 06/20/17 08/12/17 08/11/17 Rx Lactulose [Cephulac] 10 gm PO QDAY oral.liqd 07/26/17 08/12/17 08/11/17 Rx Rifaximin [Xifaxan] 550 mg PO BID tablet 07/26/17 08/12/17 08/11/17 Rx buPROPion XL [Wellbutrin XL] 150 mg PO QAM tablet 07/26/17 08/12/17 08/11/17 Rx Furosemide [Lasix] 20 mg PO QDAY 08/12/17 08/12/17 08/11/17 History Insulin NPH/Regular [NovoLIN 70/30] 1 - 10 unit SQ QDAC 08/12/17 08/12/17 History Active Meds: Active Medications Piperacillin Sod/Tazobactam Sod (Zosyn/Ns 2.25 Gm/50ml) 2.25 gm in 50 mls @ 100 mls/hr IV Q8H JEAN MARIE Last Admin: 08/28/17 17:47 Dose: 100 mls/hr Exam - Constitutional Vitals: Temp Pulse Resp BP Pulse Ox 96.8 F L 117 H 24 113/96 97 08/28/17 18:55 08/28/17 18:55 08/28/17 18:55 08/28/17 18:55 08/28/17 18:55 General appearance: Present: mild distress, well-nourished - EENT Eyes: Present: PERRL ENT: hearing intact, clear oral mucosa - Neck Neck: Present: supple, normal ROM - Respiratory Respiratory effort: normal Respiratory: bilateral: CTA - Cardiovascular Heart rate: 90 Rhythm: regular Heart Sounds: Present: S1 & S2. Absent: rub, click - Extremities Extremities: no ischemia, pulses intact, pulses symmetrical, No edema Peripheral Pulses: within normal limits - Abdominal General gastrointestinal: Present: soft, non-tender, distended, normal bowel sounds Female genitourinary: Present: normal - Rectal Rectal Exam: normal exam-external/orifice, stool brown - Integumentary Integumentary: Present: clear, warm, dry - Musculoskeletal Musculoskeletal: gait normal, strength equal bilaterally - Psychiatric Psychiatric: agitated - Neurologic Neurologic: CNII-XII intact, moves all extremities - Allied Health Allied health notes reviewed: nursing, case management Results - Labs CBC & Chem 7: 08/29/17 04:00 08/29/17 04:00 Labs: Laboratory Last Values WBC 18.4 K/mm3 (4.5-11.0) H 08/28/17 14:47 RBC 3.73 M/mm3 (3.65-5.03) 08/28/17 14:47 Hgb 9.9 gm/dl (10.1-14.3) L 08/28/17 14:47 Hct 32.5 % (30.3-42.9) 08/28/17 14:47 MCV 87 fl (79-97) 08/28/17 14:47 MCH 27 pg (28-32) L 08/28/17 14:47 MCHC 31 % (30-34) 08/28/17 14:47 RDW 24.5 % (13.2-15.2) H 08/28/17 14:47 Plt Count 201 K/mm3 (140-440) 08/28/17 14:47 Add Manual Diff Complete 08/28/17 14:47 Total Counted 100 08/28/17 14:47 Seg Neutrophils % Director 08/28/17 14:47 Seg Neuts % (Manual) 96.0 % (40.0-70.0) H 08/28/17 14:47 Band Neutrophils % 0 % 08/28/17 14:47 Lymphocytes % (Manual) 0 % (13.4-35.0) L 08/28/17 14:47 Reactive Lymphs % (Man) 0 % 08/28/17 14:47 Monocytes % (Manual) 4.0 % (0.0-7.3) 08/28/17 14:47 Eosinophils % (Manual) 0 % (0.0-4.3) 08/28/17 14:47 Basophils % (Manual) 0 % (0.0-1.8) 08/28/17 14:47 Metamyelocytes % 0 % 08/28/17 14:47 Myelocytes % 0 % 08/28/17 14:47 Promyelocytes % 0 % 08/28/17 14:47 Blast Cells % 0 % 08/28/17 14:47 Nucleated RBC % Not Reportable 08/28/17 14:47 Seg Neutrophils # Man 17.7 K/mm3 (1.8-7.7) H 08/28/17 14:47 Band Neutrophils # 0.0 K/mm3 08/28/17 14:47 Lymphocytes # (Manual) 0.0 K/mm3 (1.2-5.4) L 08/28/17 14:47 Abs React Lymphs (Man) 0.0 K/mm3 08/28/17 14:47 Monocytes # (Manual) 0.7 K/mm3 (0.0-0.8) 08/28/17 14:47 Eosinophils # (Manual) 0.0 K/mm3 (0.0-0.4) 08/28/17 14:47 Basophils # (Manual) 0.0 K/mm3 (0.0-0.1) 08/28/17 14:47 Metamyelocytes # 0.0 K/mm3 08/28/17 14:47 Myelocytes # 0.0 K/mm3 08/28/17 14:47 Promyelocytes # 0.0 K/mm3 08/28/17 14:47 Blast Cells # 0.0 K/mm3 08/28/17 14:47 WBC Morphology Not Reportable 08/28/17 14:47 Hypersegmented Neuts Not Reportable 08/28/17 14:47 Hyposegmented Neuts Not Reportable 08/28/17 14:47 Hypogranular Neuts Not Reportable 08/28/17 14:47 Smudge Cells Not Reportable 08/28/17 14:47 Toxic Granulation Not Reportable 08/28/17 14:47 Toxic Vacuolation Not Reportable 08/28/17 14:47 Dohle Bodies Not Reportable 08/28/17 14:47 Pelger-Huet Anomaly Not Reportable 08/28/17 14:47 Shawn Rods Not Reportable 08/28/17 14:47 Platelet Estimate Consistent w auto 08/28/17 14:47 Clumped Platelets Not Reportable 08/28/17 14:47 Plt Clumps, EDTA Not Reportable 08/28/17 14:47 Large Platelets Not Reportable 08/28/17 14:47 Giant Platelets Not Reportable 08/28/17 14:47 Platelet Satelliting Not Reportable 08/28/17 14:47 Plt Morphology Comment Not Reportable 08/28/17 14:47 RBC Morphology Not Reportable 08/28/17 14:47 Dimorphic RBCs Not Reportable 08/28/17 14:47 Polychromasia Few 08/28/17 14:47 Hypochromasia Not Reportable 08/28/17 14:47 Poikilocytosis 1+ 08/28/17 14:47 Anisocytosis 2+ 08/28/17 14:47 Microcytosis Not Reportable 08/28/17 14:47 Macrocytosis Not Reportable 08/28/17 14:47 Spherocytes Not Reportable 08/28/17 14:47 Pappenheimer Bodies Not Reportable 08/28/17 14:47 Sickle Cells Not Reportable 08/28/17 14:47 Target Cells Not Reportable 08/28/17 14:47 Tear Drop Cells Not Reportable 08/28/17 14:47 Ovalocytes Few 08/28/17 14:47 Helmet Cells Not Reportable 08/28/17 14:47 [place] Bodies Not Reportable 08/28/17 14:47 [place] Rings Not Reportable 08/28/17 14:47 Nalini Cells Not Reportable 08/28/17 14:47 Bite Cells Not Reportable 08/28/17 14:47 Crenated Cell Not Reportable 08/28/17 14:47 Elliptocytes Not Reportable 08/28/17 14:47 Acanthocytes (Spur) Not Reportable 08/28/17 14:47 Rouleaux Not Reportable 08/28/17 14:47 Hemoglobin C Crystals Not Reportable 08/28/17 14:47 Schistocytes Not Reportable 08/28/17 14:47 Malaria parasites Not Reportable 08/28/17 14:47 Steve Bodies Not Reportable 08/28/17 14:47 Hem Pathologist Commnt No 08/28/17 14:47 PT 21.4 Sec. (12.2-14.9) H 08/28/17 14:47 INR 1.75 (0.87-1.13) H 08/28/17 14:47 VBG pH 7.251 (7.320-7.420) L 08/28/17 14:47 Sodium 126 mmol/L (137-145) L 08/28/17 14:47 Potassium 4.3 mmol/L (3.6-5.0) 08/28/17 14:47 Chloride 92.8 mmol/L (98-107) L 08/28/17 14:47 Carbon Dioxide 16 mmol/L (22-30) L 08/28/17 14:47 Anion Gap 22 mmol/L 08/28/17 14:47 BUN 125 mg/dL (7-17) H 08/28/17 14:47 Creatinine 2.9 mg/dL (0.7-1.2) H 08/28/17 14:47 Estimated GFR 16 ml/min 08/28/17 14:47 BUN/Creatinine Ratio 43 % 08/28/17 14:47 Glucose 174 mg/dL (65-100) H 08/28/17 14:47 POC Glucose 111 (70-105) H 08/28/17 19:42 Lactic Acid 3.50 mmol/L (0.7-2.0) H* 08/28/17 18:00 Calcium 7.4 mg/dL (8.4-10.2) L 08/28/17 14:47 Total Bilirubin 2.70 mg/dL (0.1-1.2) H 08/28/17 14:47 AST 60 units/L (5-40) H 08/28/17 14:47 ALT 38 units/L (7-56) 08/28/17 14:47 Alkaline Phosphatase 331 units/L (35-129) H 08/28/17 14:47 Ammonia 311.0 umol/L (25-60) H 08/28/17 14:32 Total Creatine Kinase 54 units/L (30-135) 08/28/17 14:47 CK-MB (CK-2) 4.7 ng/mL (0.0-4.0) H 08/28/17 14:47 CK-MB (CK-2) Rel Index 8.7 (0-4) H 08/28/17 14:47 Troponin T < 0.010 ng/mL (0.00-0.029) 08/28/17 14:47 NT-Pro-B Natriuret Pep 706.9 pg/mL (0-900) 08/28/17 14:47 Total Protein 5.3 g/dL (6.3-8.2) L 08/28/17 14:47 Albumin 1.9 g/dL (3.9-5) L 08/28/17 14:47 Albumin/Globulin Ratio 0.6 % 08/28/17 14:47 Urine Color [place] (Yellow) 08/28/17 16:06 Urine Turbidity Clear (Clear) 08/28/17 16:06 Urine pH 5.0 (5.0-7.0) 08/28/17 16:06 Ur Specific [place] 1.014 (1.003-1.030) 08/28/17 16:06 Urine Protein <15 mg/dl mg/dL (Negative) 08/28/17 16:06 Urine Glucose (UA) Neg mg/dL (Negative) 08/28/17 16:06 Urine Ketones Neg mg/dL (Negative) 08/28/17 16:06 Urine Blood Neg (Negative) 08/28/17 16:06 Urine Nitrite Neg (Negative) 08/28/17 16:06 Urine Bilirubin Neg (Negative) 08/28/17 16:06 Urine Urobilinogen 4.0 mg/dL (<2.0) 08/28/17 16:06 Ur Leukocyte Esterase Sm (Negative) 08/28/17 16:06 Urine WBC (Auto) 9.0 /HPF (0.0-6.0) H 08/28/17 16:06 Urine RBC (Auto) 1.0 /HPF (0.0-6.0) 08/28/17 16:06 Urine Bacteria (Auto) 1+ /HPF (Negative) 08/28/17 16:06 Hyaline Casts 1 /LPF 08/28/17 16:06 Urine Mucus Few /HPF 08/28/17 16:06 Blood Type O POSITIVE 08/28/17 14:40 Antibody Screen Negative 08/28/17 14:40 Short CBC 08/28/17 08/29/17 Range/Units 14:47 04:00 WBC 18.4 H 38.6 H (4.5-11.0) K/mm3 Hgb 9.9 L 10.0 L (10.1-14.3) gm/dl Hct 32.5 32.9 (30.3-42.9) % Plt Count 201 204 (140-440) K/mm3 BMP 08/28/17 08/29/17 14:47 04:00 Sodium 126 L 130 L Potassium 4.3 4.6 Chloride 92.8 L 95.5 L Carbon Dioxide 16 L 12 L BUN 125 H 105 H Creatinine 2.9 H 2.6 H Glucose 174 H 37 L* Calcium 7.4 L 7.3 L Cardiac Enzymes 08/28/17 Range/Units 14:47 Total Creatine Kinase 54 (30-135) units/L CK-MB (CK-2) 4.7 H (0.0-4.0) ng/mL Troponin T < 0.010 (0.00-0.029) ng/mL Liver Function 08/28/17 08/29/17 Range/Units 14:47 04:00 Total Bilirubin 2.70 H 3.10 H (0.1-1.2) mg/dL AST 60 H 89 H (5-40) units/L ALT 38 48 (7-56) units/L Alkaline Phosphatase 331 H 359 H (35-129) units/L Albumin 1.9 L 2.0 L (3.9-5) g/dL Urine 08/28/17 Range/Units 16:06 Urine Color [place] (Yellow) Urine pH 5.0 (5.0-7.0) Ur Specific [place] 1.014 (1.003-1.030) Urine Protein <15 mg/dl (Negative) mg/dL Urine Glucose (UA) Neg (Negative) mg/dL - Imaging and Cardiology EKG: report reviewed Abdominal x-ray: report reviewed Assessment and Plan Assessment and plan: The high probability of a clinically significant, sudden or life threatening deterioration of the [Pulmonary, cadiac, renal] system(s) required my full and direct attention, intervention and personal management. The aggregate critical care time was [45] minutes. This time is in addition to time spent performing reported procedures but includes the following: [x] Data Review and interpretation [x] Patient assessment and monitoring of vital signs [x] Documentation [x] Medication orders and management Advance Directives: Yes (Full code) VTE prophylaxis?: Chemical Plan of care discussed with patient/family: Yes - Patient Problems (1) Sepsis Current Visit: Yes Status: Acute Plan to address problem: From Urine versus spontaneous Bacterial peritonitis.Started on IV Zosyn and Vancomycin Pressors if necessary (2) Hepatic encephalopathy Current Visit: No Status: Acute Plan to address problem: Lactulose and Xifaxam Paracentesis ordered (3) GLORIA (acute kidney injury) Current Visit: Yes Status: Acute Plan to address problem: Nephrology consulted (4) Hyperammonemia Current Visit: Yes Status: Acute Plan to address problem: Cont Lactulose and Xifaxam (5) Hypoglycemia Current Visit: Yes Status: Acute Plan to address problem: Will stop oral Hypoglycemics for ever. Insulin coverage for now and 70/30 at discharge.Prefer BG in 150 to 300 range given her comorbidities (6) Hyponatremia Current Visit: No Status: Acute Plan to address problem: Patient has Ascites too.will defer to Nephrology (7) UTI (urinary tract infection) Current Visit: No Status: Acute Qualifiers: Urinary tract infection type: acute cystitis Plan to address problem: On Zosyn for sepsis (8) IDDM (insulin dependent diabetes mellitus) Current Visit: Yes Status: Chronic Plan to address problem: No oral hypoglycemics Insulin coverage Check A1c (9) Ascites Current Visit: Yes Status: Chronic Qualifiers: Ascites type: other type Qualified Code(s): R18.8 - Other ascites Plan to address problem: Paracentesis prn (10) Malnutrition Current Visit: Yes Status: Chronic Qualifiers: Protein-calorie malnutrition severity: severe Plan to address problem: Dietitian consult (11) DVT prophylaxis Current Visit: Yes Status: Acute Plan to address problem: Scd's
[2017-08-28] MEDS ORDERED: MILK OF MAGNESIA PO PRN (21:52)
[2017-08-28] MEDS ORDERED: DULCOLAX PR PRN (21:52)
[2017-08-28] MEDS ORDERED: DILAUDID IV PRN (21:52)
[2017-08-28] MEDS ORDERED: ZOFRAN IV PRN (21:52)
[2017-08-28] MEDS ORDERED: TYLENOL PO PRN (21:52)
[2017-08-28] MEDS ORDERED: DUONEB *Not for PRN Use IH (21:56)
[2017-08-28] MEDS ORDERED: ZOSYN/NS 4.5GM/100ML 4.5 GM/100 ML VIAL IV SCH (22:00)
[2017-08-28] MEDS ORDERED: NACL 0.9% 1000 ML 1,000 ML IV SCH (22:00)
[2017-08-28] MEDS ORDERED: PROVENTIL IH PRN (22:05)
[2017-08-28] MEDS: NACL 0.9% IV SCH (22:50)
[2017-08-28] MEDS: LOVENOX SUB-Q SCH (22:50)
[2017-08-28] MEDS: LEVOPHED IV SCH (22:50)
[2017-08-28] MEDS ORDERED: NACL 0.9% 1000 ML 1,000 ML ONE (23:03)
[2017-08-29] MEDS ORDERED: ZOSYN/NS 2.25 GM/50ML 2.25 GM/50 ML BAG IV SCH
[2017-08-29] MEDS ORDERED: D50W (25GM) Syringe IV ONE ×2 (01:18→03:00)
[2017-08-29] MEDS ORDERED: D5/0.45NS 1,000 ML IV SCH (02:00)
[2017-08-29] MEDS: ZOSYN/NS 2.25 GM/50ML 2.25 GM/50 ML BAG IV SCH ×2 (02:18→13:24)
[2017-08-29 04:19] LABS: Hematocrit 32.9 % (30.3-42.9); Mean Corpuscular HGB Conc 30 % (30-34); Mean Corpuscular Hemoglobin 27 pg (28-32); Mean Corpuscular Volume 88 fl (79-97); Red Blood Count 3.72 M/mm3 (3.65-5.03)
[2017-08-29 04:20] LABS: Platelet Count 204 K/mm3 (140-440); Red Cell Distribution Width 24.8 % (13.2-15.2)
[2017-08-29 04:43] LABS: Calcium 7.3 mg/dL (8.4-10.2)
[2017-08-29] MEDS ORDERED: VANCOMYCIN PHARMACY TO DOSE IV SCH (07:00)
[2017-08-29 07:09] LABS: Anisocytosis 1+; Band Neutrophils # (Manual) 1.5 K/mm3; Basophils % (Manual) 0 % (0.0-1.8); Eosinophils % (Manual) 0 % (0.0-4.3); Poikilocytosis 1+; Total Cells Counted 100
[2017-08-29 07:10] LABS: Burr Cells Few; Hypochromasia Few; Ovalocytes Few; Target Cells Rare
--- NOTE | 2017-08-29 07:44 | XRay Report ---
FINAL REPORT EXAM: XR CHEST 1V AP HISTORY: Possible sepsis. TECHNIQUE: A single frontal portable radiograph of the chest was obtained. Comparison is made with prior study 03/07/2017. FINDINGS: There is mild patient rotation. The heart is normal in size and the aorta is tortuous. There are low lung volumes. Again demonstrated mild diffuse prominence of the interstitial lung markings, probably chronic in etiology, stable in appearance. There is elevation of the right hemidiaphragm. There is 4.4 x 3.4 cm irregular masslike density at the right medial lung base, not seen on prior exam. Adjacent streaky right basilar consolidation is seen, representing atelectasis and/or infiltrate. There is an additional 2.0 x 2.1 cm patchy density in the lateral right upper lobe, also new. There is a probable small right pleural effusion. There is no pneumothorax. No significant osseous abnormalities are identified. There are curvilinear mottled radiolucencies projected over the soft tissues of the left lower neck, probably external artifact. Correlation with physical exam is recommended. IMPRESSION: 1. New 4.4 x 3.4 cm masslike density at the right medial lung base. Given patient's reported history, this may represent focal pneumonia, though underlying neoplasm is not excluded. Adjacent right basilar patchy consolidation, representing adjacent atelectasis and/or infiltrate. 2. Additional new 2.0 x 2.1 cm patchy density in the lateral right upper lobe. Probable small right pleural effusion. 3. Nonspecific curvilinear radiolucencies overlying the soft tissues of the left lower neck, query external artifact. Correlation with physical exam is recommended. Given these multiple findings, continued imaging surveillance is recommended, and CT exam should also be considered for further evaluation.
[2017-08-29] MEDS: DUONEB *Not for PRN Use IH SCH ×3 (07:46→20:52)
[2017-08-29] MEDS ORDERED: VANCOMYCIN 1,500 MG in NACL 0.9% 500 ML 500 ML IV ONE (08:00)
[2017-08-29] MEDS: NACL 0.9% IV SCH (08:09)
[2017-08-29] MEDS: LEVOPHED IV SCH (08:09)
[2017-08-29] MEDS: D10W 1,000 ML IV SCH ×2 (08:35→19:26)
[2017-08-29] MEDS ORDERED: NACL 0.9% 1000 ML 1,000 ML IV SCH (09:00)
--- NOTE | 2017-08-29 09:37 | Consultation ---
History of Present Illness - Reason for Consult Consult date: 08/29/17 acute renal failure, hyponatremia, metabolic acidosis - History of Present Illness The patient is a 66-year-old WF with medical history significant for DM type 2, Cirrhosis, Ascites s/p paracentesis, anemia and Encephalopathy who was recently treated for Encephalopathy and discharged on 08/26/17 [facility] with [facility], Lethargy and difficulty breathing. Her blood sugar was low. Unable to obtain any history from patient and there is no family member at the bedside. Her initial labs were significant for Sodium 126, bicarb 16 and creatinine 2.9. Her creatinine was 1 on 08/26/17. Patient is hypotensive requiring Levophed. Past History Past Medical History: anemia, diabetes Medications and Allergies Allergies Allergy/AdvReac Type Severity Reaction Status Date / Time No Known Allergies Allergy Verified 03/07/17 23:29 Home Medications Medication Instructions Recorded Confirmed Last Taken Type Bisacodyl [Dulcolax suppos] 10 mg NE ONCE PRN 01/10/17 08/12/17 08/11/17 History Sertraline [Zoloft] 150 mg PO QAM 01/10/17 08/12/17 08/11/17 History glyBURIDE [Diabeta] 2.5 mg PO DAILY 01/10/17 08/12/17 08/11/17 History HYDROcodone/APAP 5-325 [[place] 1 each PO Q6HR PRN #60 tablet 06/20/17 08/12/17 Rx 5-325 mg TAB] Multivit with Calcium,Iron,Min 1 tab PO DAILY #30 tablet 06/20/17 08/12/1708/11 Rx [Multiple Vitamins For Women] Pantoprazole [Protonix TAB] 20 mg PO QAM #30 tablet. 06/20/17 08/12/17 Rx Spironolactone [Aldactone] 50 mg PO BID #60 tablet 06/20/17 08/12/17 08/11/17 Rx traZODone [Desyrel] 50 mg PO QHS #30 tablet 06/20/17 08/12/17 08/11/17 Rx Lactulose [Cephulac] 10 gm PO QDAY oral.raqd 07/26/17 08/12/17 08/11/17 Rx Rifaximin [Xifaxan] 550 mg PO BID tablet 07/26/17 08/12/17 08/11/17 Rx buPROPion XL [Wellbutrin XL] 150 mg PO QAM tablet 07/26/17 08/12/17 08/11/17 Rx Furosemide [Lasix] 20 mg PO QDAY 08/12/17 08/12/17 08/11/17 History Insulin NPH/Regular [NovoLIN 70/30] 1 - 10 unit SQ QDAC 08/12/17 08/12/17 History Active Meds: Active Medications Acetaminophen (Tylenol) 650 mg PO Q4H PRN PRN Reason: Pain MILD(1-3)/Fever >100.5/APODACA Albuterol (Proventil) 2.5 mg IH Q3HRT PRN PRN Reason: Shortness Of Breath Albuterol/Ipratropium (Duoneb *Not For Prn Use*) 1 ampul IH QIDRT [facility] Last Admin: 08/29/17 07:46 Dose: 1 ampul Bisacodyl (Dulcolax) 10 mg NE QDAY PRN PRN Reason: Constipation unrelieved by MOM Enoxaparin Sodium (Lovenox) 30 mg SUB-Q QDAY [facility] Last Admin: 08/28/17 22:50 Dose: Not Given Furosemide (Lasix) 20 mg PO QDAY [facility] Hydromorphone HCl (Dilaudid) 0.25 mg IV Q3H PRN PRN Reason: Pain, Moderate (4-6) Piperacillin Sod/Tazobactam Sod (Zosyn/Ns 2.25 Gm/50ml) 2.25 gm in 50 mls @ 100 mls/hr IV Q8H [facility] Last Admin: 08/29/17 02:18 Dose: 100 mls/hr Norepinephrine 8 mg/ Sodium (Chloride) 258 mls @ 3.87 mls/hr IV DIRECT JEAN MARIE; 2 MCG/MIN PRN Reason: Protocol Last Admin: 08/29/17 08:09 Dose: 25 mcg/min, 48.37 mls/hr Dextrose (D10w) 1,000 mls @ 100 mls/hr IV DIRECT JEAN MARIE Sodium Chloride (Nacl 0.9% 1000 Ml) 1,000 mls @ 100 mls/hr IV DIRECT JEAN MARIE Insulin Aspart (Novolog) 0 units SUB-Q Q6HR JEAN MARIE PRN Reason: Protocol Lactulose (Cephulac) 30 gm PO QDAY JEAN MARIE Magnesium Hydroxide (Milk Of Magnesia) 30 ml PO Q4H PRN PRN Reason: Constipation Ondansetron HCl (Zofran) 4 mg IV Q8H PRN PRN Reason: N/V unrelieved by Reglan Pantoprazole Sodium (Protonix) 20 mg PO QAM JEAN MARIE Rifaximin (Xifaxan) 550 mg PO BID JEAN MARIE Sertraline HCl (Zoloft) 150 mg PO QAM JEAN MARIE Spironolactone (Aldactone) 50 mg PO BID JEAN MARIE Vancomycin HCl (Vancomycin Pharmacy To Dose) 1 each IV PKCONSULT JEAN MARIE PRN Reason: Protocol Review of Systems ROS unobtainable: due to mental status Exam - Vital Signs Vital signs: Vital Signs Pulse Resp BP 90 13 144/126 08/28/17 14:16 08/28/17 14:16 08/28/17 14:16 - General Appearance General appearance: well-developed, appears stated age EENT: ATNC Neck: Present: neck supple, trachea midline Respiratory: Clear to Ascultation Heart: regular, S1S2, no murmurs Gastrointestinal: Present: normoactive bowel sounds, distended. Absent: tenderness Integumentary: other (multiple echymoses over the chest, UEs and neck) Neurologic: obtunded Musculoskeletal: Present: other (no edema) Results - Lab Results 08/29/17 04:00 08/29/17 04:00 Most recent lab results Calcium 7.3 mg/dL (8.4-10.2) L 08/29/17 04:00 - Image Kidney/bladder ultrasound: pending Assessment and Plan 1. Acute kidney injury: GLORIA in the setting of hypotension / sepsis. Continue IV fluids. Hepato-renal syndrome is a possibility. Urine studies and Renal US ordered. Renal prognosis is guarded. 2. Metabolic acidosis: Continue IV fluids. 3. Hyponatremia: Improving with IV fluids. 4. Hypotension: On Levophed. 5. Hypoglycemia: On D10 drip. 6. Cirrhosis with Ascites. 7. Encephalopathy.
[2017-08-29] MEDS ORDERED: ALDACTONE PO SCH (10:00)
[2017-08-29] MEDS ORDERED: CEPHULAC PO SCH ×2 (10:00→14:00)
[2017-08-29] MEDS ORDERED: LASIX PO SCH (10:00)
[2017-08-29] MEDS ORDERED: PROTONIX PO SCH (11:00)
[2017-08-29] MEDS ORDERED: XIFAXAN PO SCH (11:00)
[2017-08-29] MEDS ORDERED: ZOLOFT PO SCH (11:00)
--- NOTE | 2017-08-29 11:13 | Gastroenterology Consultation ---
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 She was found to have an UTI and possible pneumonia on admission and is being treated for sepsis along with GLORIA, hypoglycemia, and hyponatremia. Currently on levophed due to hypotension and D10 gtt for hypoglycemia. She is previously known to our service from a prior hospitalization last month for cirrhosis with multiple other co-morbidities. This morning pt is noted to be lethargic and unable to provide history. No family at bedside. History obtained via chart review. She nodes her head no when asked if she has abd pain or N/V. No signs of active bleeding per nursing. 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 (s/p paracentesis 07/2017) and HE), other (major depressive disorder, dementia) Past Surgical History: hysterectomy Social history: other (retirement resident, former smoker) Medications and Allergies Allergies Allergy/AdvReac Type Severity Reaction Status Date / Time No Known Allergies Allergy Verified 03/07/17 23:29 Home Medications Medication Instructions Recorded Confirmed Last Taken Type Bisacodyl [Dulcolax suppos] 10 mg MS ONCE PRN 01/10/17 08/12/17 08/11/17 History Sertraline [Zoloft] 150 mg PO QAM 01/10/17 08/12/17 08/11/17 History glyBURIDE [Diabeta] 2.5 mg PO DAILY 01/10/17 08/12/17 08/11/17 History HYDROcodone/APAP 5-325 [[place] 1 each PO Q6HR PRN #60 tablet 06/20/17 08/12/17 Rx 5-325 mg TAB] Multivit with Calcium,Iron,Min 1 tab PO DAILY #30 tablet 06/20/17 08/12/1708/11 Rx [Multiple Vitamins For Women] Pantoprazole [Protonix TAB] 20 mg PO QAM #30 tablet. 06/20/17 08/12/17 18 Rx Spironolactone [Aldactone] 50 mg PO BID #60 tablet 06/20/17 08/12/17 08/11/17 Rx traZODone [Desyrel] 50 mg PO QHS #30 tablet 06/20/17 08/12/17 08/11/17 Rx Lactulose [Cephulac] 10 gm PO QDAY oral.liqd 07/26/17 08/12/17 08/11/17 Rx Rifaximin [Xifaxan] 550 mg PO BID tablet 07/26/17 08/12/17 08/11/17 Rx buPROPion XL [Wellbutrin XL] 150 mg PO QAM tablet 07/26/17 08/12/17 08/11/17 Rx Furosemide [Lasix] 20 mg PO QDAY 08/12/17 08/12/17 08/11/17 History Insulin NPH/Regular [NovoLIN 70/30] 1 - 10 unit SQ QDAC 08/12/17 08/12/17 History Active Meds: Active Medications Acetaminophen (Tylenol) 650 mg PO Q4H PRN PRN Reason: Pain MILD(1-3)/Fever >100.5/APODACA Albuterol (Proventil) 2.5 mg IH Q3HRT PRN PRN Reason: Shortness Of Breath Albuterol/Ipratropium (Duoneb *Not For Prn Use*) 1 ampul IH QIDRT [facility] Last Admin: 08/29/17 07:46 Dose: 1 ampul Bisacodyl (Dulcolax) 10 mg MS QDAY PRN PRN Reason: Constipation unrelieved by MOM Enoxaparin Sodium (Lovenox) 30 mg SUB-Q QDAY [facility] Last Admin: 08/28/17 22:50 Dose: Not Given Hydromorphone HCl (Dilaudid) 0.25 mg IV Q3H PRN PRN Reason: Pain, Moderate (4-6) Piperacillin Sod/Tazobactam Sod (Zosyn/Ns 2.25 Gm/50ml) 2.25 gm in 50 mls @ 100 mls/hr IV Q8H [facility] Last Admin: 08/29/17 02:18 Dose: 100 mls/hr Norepinephrine 8 mg/ Sodium (Chloride) 258 mls @ 3.87 mls/hr IV DIRECT JEAN MARIE; 2 MCG/MIN PRN Reason: Protocol Last Admin: 08/29/17 08:09 Dose: 25 mcg/min, 48.37 mls/hr Dextrose (D10w) 1,000 mls @ 100 mls/hr IV DIRECT JEAN MARIE Last Admin: 08/29/17 08:35 Dose: 100 mls/hr Sodium Chloride (Nacl 0.9% 1000 Ml) 1,000 mls @ 100 mls/hr IV DIRECT JEAN MARIE Last Admin: 08/29/17 08:35 Dose: 100 mls/hr Insulin Aspart (Novolog) 0 units SUB-Q Q6HR JEAN MARIE PRN Reason: Protocol Lactulose (Cephulac) 30 gm PO QDAY JEAN MARIE Magnesium Hydroxide (Milk Of Magnesia) 30 ml PO Q4H PRN PRN Reason: Constipation Ondansetron HCl (Zofran) 4 mg IV Q8H PRN PRN Reason: N/V unrelieved by Reglan Pantoprazole Sodium (Protonix) 20 mg PO QAM JEAN MARIE Rifaximin (Xifaxan) 550 mg PO BID JEAN MARIE Sertraline HCl (Zoloft) 150 mg PO QAM JEAN MARIE Vancomycin HCl (Vancomycin Pharmacy To Dose) 1 each IV PKCONSULT JEAN MARIE PRN Reason: Protocol Review of Systems - Review of Systems ROS unobtainable: due to mental status Exam - Constitutional Vital Signs: Temp Pulse Resp BP Pulse Ox 99.1 F 124 H 25 H 84/43 100 08/29/17 08:00 08/29/17 10:11 08/29/17 10:11 08/29/17 10:11 08/29/17 10:11 General appearance: mild distress, other (lethargic) - Respiratory Respiratory: bilateral: diminished - Cardiovascular Rhythm: other (tachycardia) Heart Sounds: Present: S1 & S2 Extremity abnormal: edema, other (multiple echymoses on chest, upper extremities ,and neck) - Gastrointestinal General gastrointestinal: Present: soft, distended (mildly distended (ascites)) , normal bowel sounds - Labs CBC & Chem 7: 08/29/17 04:00 08/29/17 04:00 Lab Results: Laboratory Results - last 24 hr 08/28/17 08/28/17 08/28/17 14:24 14:32 14:40 WBC RBC Hgb Hct MCV MCH MCHC RDW Plt Count Lymph % (Auto) Garrett % (Auto) Eos % (Auto) Baso % (Auto) Lymph # Garrett # Eos # Baso # Add Manual Diff Total Counted Seg Neutrophils % Seg Neuts % (Manual) Band Neutrophils % Lymphocytes % (Manual) Reactive Lymphs % (Man) Monocytes % (Manual) Eosinophils % (Manual) Basophils % (Manual) Metamyelocytes % Myelocytes % Promyelocytes % Blast Cells % Nucleated RBC % Seg Neutrophils # Seg Neutrophils # Man Band Neutrophils # Lymphocytes # (Manual) Abs React Lymphs (Man) Monocytes # (Manual) Eosinophils # (Manual) Basophils # (Manual) Metamyelocytes # Myelocytes # Promyelocytes # Blast Cells # WBC Morphology Hypersegmented Neuts Hyposegmented Neuts Hypogranular Neuts Smudge Cells Toxic Granulation Toxic Vacuolation Dohle Bodies Pelger-Huet Anomaly Shawn Rods Platelet Estimate Clumped Platelets Plt Clumps, EDTA Large Platelets Giant Platelets Platelet Satelliting Plt Morphology Comment RBC Morphology Dimorphic RBCs Polychromasia Hypochromasia Poikilocytosis Anisocytosis Microcytosis Macrocytosis Spherocytes Pappenheimer Bodies Sickle Cells Target Cells Tear Drop Cells Ovalocytes Helmet Cells [place] Bodies [place] Rings Nalini Cells Bite Cells Crenated Cell Elliptocytes Acanthocytes (Spur) Rouleaux Hemoglobin C Crystals Schistocytes Malaria parasites Steve Bodies Hem Pathologist Commnt PT INR VBG pH Sodium Potassium Chloride Carbon Dioxide Anion Gap BUN Creatinine Estimated GFR BUN/Creatinine Ratio Glucose POC Glucose < 40 L Hemoglobin A1c Lactic Acid Calcium Total Bilirubin AST ALT Alkaline Phosphatase Ammonia 311.0 H Total Creatine Kinase CK-MB (CK-2) CK-MB (CK-2) Rel Index Troponin T NT-Pro-B Natriuret Pep Total Protein Albumin Albumin/Globulin Ratio Urine Color Urine Turbidity Urine pH Ur Specific [place] Urine Protein Urine Glucose (UA) Urine Ketones Urine Blood Urine Nitrite Urine Bilirubin Urine Urobilinogen Ur Leukocyte Esterase Urine WBC (Auto) Urine RBC (Auto) Urine Bacteria (Auto) Hyaline Casts Urine Mucus Blood Type O POSITIVE Antibody Screen Negative 08/28/17 08/28/17 08/28/17 14:44 14:47 14:47 WBC 18.4 H RBC 3.73 Hgb 9.9 L Hct 32.5 MCV 87 MCH 27 L MCHC 31 RDW 24.5 H Plt Count 201 Lymph % (Auto) Garrett % (Auto) Eos % (Auto) Baso % (Auto) Lymph # Garrett # Eos # Baso # Add Manual Diff Complete Total Counted 100 Seg Neutrophils % Parachute Line Tier Seg Neuts % (Manual) 96.0 H Band Neutrophils % 0 Lymphocytes % (Manual) 0 L Reactive Lymphs % (Man) 0 Monocytes % (Manual) 4.0 Eosinophils % (Manual) 0 Basophils % (Manual) 0 Metamyelocytes % 0 Myelocytes % 0 Promyelocytes % 0 Blast Cells % 0 Nucleated RBC % Not Reportable Seg Neutrophils # Seg Neutrophils # Man 17.7 H Band Neutrophils # 0.0 Lymphocytes # (Manual) 0.0 L Abs React Lymphs (Man) 0.0 Monocytes # (Manual) 0.7 Eosinophils # (Manual) 0.0 Basophils # (Manual) 0.0 Metamyelocytes # 0.0 Myelocytes # 0.0 Promyelocytes # 0.0 Blast Cells # 0.0 WBC Morphology Not Reportable Hypersegmented Neuts Not Reportable Hyposegmented Neuts Not Reportable Hypogranular Neuts Not Reportable Smudge Cells Not Reportable Toxic Granulation Not Reportable Toxic Vacuolation Not Reportable Dohle Bodies Not Reportable Pelger-Huet Anomaly Not Reportable Shawn Rods Not Reportable Platelet Estimate Consistent w auto Clumped Platelets Not Reportable Plt Clumps, EDTA Not Reportable Large Platelets Not Reportable Giant Platelets Not Reportable Platelet Satelliting Not Reportable Plt Morphology Comment Not Reportable RBC Morphology Not Reportable Dimorphic RBCs Not Reportable Polychromasia Few Hypochromasia Not Reportable Poikilocytosis 1+ Anisocytosis 2+ Microcytosis Not Reportable Macrocytosis Not Reportable Spherocytes Not Reportable Pappenheimer Bodies Not Reportable Sickle Cells Not Reportable Target Cells Not Reportable Tear Drop Cells Not Reportable Ovalocytes Few Helmet Cells Not Reportable [place] Bodies Not Reportable [place] Rings Not Reportable Nalini Cells Not Reportable Bite Cells Not Reportable Crenated Cell Not Reportable Elliptocytes Not Reportable Acanthocytes (Spur) Not Reportable Rouleaux Not Reportable Hemoglobin C Crystals Not Reportable Schistocytes Not Reportable Malaria parasites Not Reportable Steve Bodies Not Reportable Hem Pathologist Commnt No PT 21.4 H INR 1.75 H VBG pH Sodium Potassium Chloride Carbon Dioxide Anion Gap BUN Creatinine Estimated GFR BUN/Creatinine Ratio Glucose POC Glucose 241 H Hemoglobin A1c Lactic Acid Calcium Total Bilirubin AST ALT Alkaline Phosphatase Ammonia Total Creatine Kinase CK-MB (CK-2) CK-MB (CK-2) Rel Index Troponin T NT-Pro-B Natriuret Pep Total Protein Albumin Albumin/Globulin Ratio Urine Color Urine Turbidity Urine pH Ur Specific [place] Urine Protein Urine Glucose (UA) Urine Ketones Urine Blood Urine Nitrite Urine Bilirubin Urine Urobilinogen Ur Leukocyte Esterase Urine WBC (Auto) Urine RBC (Auto) Urine Bacteria (Auto) Hyaline Casts Urine Mucus Blood Type Antibody Screen 08/28/17 08/28/17 08/28/17 14:47 14:47 14:47 WBC RBC Hgb Hct MCV MCH MCHC RDW Plt Count Lymph % (Auto) Garrett % (Auto) Eos % (Auto) Baso % (Auto) Lymph # Garrett # Eos # Baso # Add Manual Diff Total Counted Seg Neutrophils % Seg Neuts % (Manual) Band Neutrophils % Lymphocytes % (Manual) Reactive Lymphs % (Man) Monocytes % (Manual) Eosinophils % (Manual) Basophils % (Manual) Metamyelocytes % Myelocytes % Promyelocytes % Blast Cells % Nucleated RBC % Seg Neutrophils # Seg Neutrophils # Man Band Neutrophils # Lymphocytes # (Manual) Abs React Lymphs (Man) Monocytes # (Manual) Eosinophils # (Manual) Basophils # (Manual) Metamyelocytes # Myelocytes # Promyelocytes # Blast Cells # WBC Morphology Hypersegmented Neuts Hyposegmented Neuts Hypogranular Neuts Smudge Cells Toxic Granulation Toxic Vacuolation Dohle Bodies Pelger-Huet Anomaly Shawn Rods Platelet Estimate Clumped Platelets Plt Clumps, EDTA Large Platelets Giant Platelets Platelet Satelliting Plt Morphology Comment RBC Morphology Dimorphic RBCs Polychromasia Hypochromasia Poikilocytosis Anisocytosis Microcytosis Macrocytosis Spherocytes Pappenheimer Bodies Sickle Cells Target Cells Tear Drop Cells Ovalocytes Helmet Cells [place] Bodies [place] Rings Nalini Cells Bite Cells Crenated Cell Elliptocytes Acanthocytes (Spur) Rouleaux Hemoglobin C Crystals Schistocytes Malaria parasites Steve Bodies Hem Pathologist Commnt PT INR VBG pH 7.251 L Sodium 126 L Potassium 4.3 Chloride 92.8 L Carbon Dioxide 16 L Anion Gap 22 BUN 125 H Creatinine 2.9 H Estimated GFR 16 BUN/Creatinine Ratio 43 Glucose 174 H POC Glucose Hemoglobin A1c Lactic Acid 2.20 H* Calcium 7.4 L Total Bilirubin 2.70 H AST 60 H ALT 38 Alkaline Phosphatase 331 H Ammonia Total Creatine Kinase CK-MB (CK-2) CK-MB (CK-2) Rel Index Troponin T NT-Pro-B Natriuret Pep Total Protein 5.3 L Albumin 1.9 L Albumin/Globulin Ratio 0.6 Urine Color Urine Turbidity Urine pH Ur Specific [place] Urine Protein Urine Glucose (UA) Urine Ketones Urine Blood Urine Nitrite Urine Bilirubin Urine Urobilinogen Ur Leukocyte Esterase Urine WBC (Auto) Urine RBC (Auto) Urine Bacteria (Auto) Hyaline Casts Urine Mucus Blood Type Antibody Screen 08/28/17 08/28/17 08/28/17 14:47 14:47 16:01 WBC RBC Hgb Hct MCV MCH MCHC RDW Plt Count Lymph % (Auto) Garrett % (Auto) Eos % (Auto) Baso % (Auto) Lymph # Garrett # Eos # Baso # Add Manual Diff Total Counted Seg Neutrophils % Seg Neuts % (Manual) Band Neutrophils % Lymphocytes % (Manual) Reactive Lymphs % (Man) Monocytes % (Manual) Eosinophils % (Manual) Basophils % (Manual) Metamyelocytes % Myelocytes % Promyelocytes % Blast Cells % Nucleated RBC % Seg Neutrophils # Seg Neutrophils # Man Band Neutrophils # Lymphocytes # (Manual) Abs React Lymphs (Man) Monocytes # (Manual) Eosinophils # (Manual) Basophils # (Manual) Metamyelocytes # Myelocytes # Promyelocytes # Blast Cells # WBC Morphology Hypersegmented Neuts Hyposegmented Neuts Hypogranular Neuts Smudge Cells Toxic Granulation Toxic Vacuolation Dohle Bodies Pelger-Huet Anomaly Shawn Rods Platelet Estimate Clumped Platelets Plt Clumps, EDTA Large Platelets Giant Platelets Platelet Satelliting Plt Morphology Comment RBC Morphology Dimorphic RBCs Polychromasia Hypochromasia Poikilocytosis Anisocytosis Microcytosis Macrocytosis Spherocytes Pappenheimer Bodies Sickle Cells Target Cells Tear Drop Cells Ovalocytes Helmet Cells [place] Bodies [place] Rings Nalini Cells Bite Cells Crenated Cell Elliptocytes Acanthocytes (Spur) Rouleaux Hemoglobin C Crystals Schistocytes Malaria parasites Steve Bodies Hem Pathologist Commnt PT INR VBG pH Sodium Potassium Chloride Carbon Dioxide Anion Gap BUN Creatinine Estimated GFR BUN/Creatinine Ratio Glucose POC Glucose 71 Hemoglobin A1c 4.3 Lactic Acid Calcium Total Bilirubin AST ALT Alkaline Phosphatase Ammonia Total Creatine Kinase 54 CK-MB (CK-2) 4.7 H CK-MB (CK-2) Rel Index 8.7 H Troponin T < 0.010 NT-Pro-B Natriuret Pep 706.9 Total Protein Albumin Albumin/Globulin Ratio Urine Color Urine Turbidity Urine pH Ur Specific [place] Urine Protein Urine Glucose (UA) Urine Ketones Urine Blood Urine Nitrite Urine Bilirubin Urine Urobilinogen Ur Leukocyte Esterase Urine WBC (Auto) Urine RBC (Auto) Urine Bacteria (Auto) Hyaline Casts Urine Mucus Blood Type Antibody Screen 08/28/17 08/28/17 08/28/17 16:06 18:00 18:04 WBC RBC Hgb Hct MCV MCH MCHC RDW Plt Count Lymph % (Auto) Garrett % (Auto) Eos % (Auto) Baso % (Auto) Lymph # Garrett # Eos # Baso # Add Manual Diff Total Counted Seg Neutrophils % Seg Neuts % (Manual) Band Neutrophils % Lymphocytes % (Manual) Reactive Lymphs % (Man) Monocytes % (Manual) Eosinophils % (Manual) Basophils % (Manual) Metamyelocytes % Myelocytes % Promyelocytes % Blast Cells % Nucleated RBC % Seg Neutrophils # Seg Neutrophils # Man Band Neutrophils # Lymphocytes # (Manual) Abs React Lymphs (Man) Monocytes # (Manual) Eosinophils # (Manual) Basophils # (Manual) Metamyelocytes # Myelocytes # Promyelocytes # Blast Cells # WBC Morphology Hypersegmented Neuts Hyposegmented Neuts Hypogranular Neuts Smudge Cells Toxic Granulation Toxic Vacuolation Dohle Bodies Pelger-Huet Anomaly Shawn Rods Platelet Estimate Clumped Platelets Plt Clumps, EDTA Large Platelets Giant Platelets Platelet Satelliting Plt Morphology Comment RBC Morphology Dimorphic RBCs Polychromasia Hypochromasia Poikilocytosis Anisocytosis Microcytosis Macrocytosis Spherocytes Pappenheimer Bodies Sickle Cells Target Cells Tear Drop Cells Ovalocytes Helmet Cells [place] Bodies [place] Rings [place] Cells Bite Cells Crenated Cell Elliptocytes Acanthocytes (Spur) Rouleaux Hemoglobin C Crystals Schistocytes Malaria parasites Steve Bodies Hem Pathologist Commnt PT INR VBG pH Sodium Potassium Chloride Carbon Dioxide Anion Gap BUN Creatinine Estimated GFR BUN/Creatinine Ratio Glucose POC Glucose 267 H Hemoglobin A1c Lactic Acid 3.50 H* Calcium Total Bilirubin AST ALT Alkaline Phosphatase Ammonia Total Creatine Kinase CK-MB (CK-2) CK-MB (CK-2) Rel Index Troponin T NT-Pro-B Natriuret Pep Total Protein Albumin Albumin/Globulin Ratio Urine Color G[place]yna Urine Turbidity Clear Urine pH 5.0 Ur Specific [place] 1.014 Urine Protein <15 mg/dl Urine Glucose (UA) Neg Urine Ketones Neg Urine Blood Neg Urine Nitrite Neg Urine Bilirubin Neg Urine Urobilinogen 4.0 Ur Leukocyte Esterase Sm Urine WBC (Auto) 9.0 H Urine RBC (Auto) 1.0 Urine Bacteria (Auto) 1+ Hyaline Casts 1 Urine Mucus Few Blood Type Antibody Screen 08/28/17 08/29/17 08/29/17 19:42 02:32 03:54 WBC RBC Hgb Hct MCV MCH MCHC RDW Plt Count Lymph % (Auto) Garrett % (Auto) Eos % (Auto) Baso % (Auto) Lymph # Garrett # Eos # Baso # Add Manual Diff Total Counted Seg Neutrophils % Seg Neuts % (Manual) Band Neutrophils % Lymphocytes % (Manual) Reactive Lymphs % (Man) Monocytes % (Manual) Eosinophils % (Manual) Basophils % (Manual) Metamyelocytes % Myelocytes % Promyelocytes % Blast Cells % Nucleated RBC % Seg Neutrophils # Seg Neutrophils # Man Band Neutrophils # Lymphocytes # (Manual) Abs React Lymphs (Man) Monocytes # (Manual) Eosinophils # (Manual) Basophils # (Manual) Metamyelocytes # Myelocytes # Promyelocytes # Blast Cells # WBC Morphology Hypersegmented Neuts Hyposegmented Neuts Hypogranular Neuts Smudge Cells Toxic Granulation Toxic Vacuolation Dohle Bodies Pelger-Huet Anomaly Shawn Rods Platelet Estimate Clumped Platelets Plt Clumps, EDTA Large Platelets Giant Platelets Platelet Satelliting Plt Morphology Comment RBC Morphology Dimorphic RBCs Polychromasia Hypochromasia Poikilocytosis Anisocytosis Microcytosis Macrocytosis Spherocytes Pappenheimer Bodies Sickle Cells Target Cells Tear Drop Cells Ovalocytes Helmet Cells [place] Bodies [place] Rings [place] Cells Bite Cells Crenated Cell Elliptocytes Acanthocytes (Spur) Rouleaux Hemoglobin C Crystals Schistocytes Malaria parasites Steve Bodies Hem Pathologist Commnt PT INR VBG pH Sodium Potassium Chloride Carbon Dioxide Anion Gap BUN Creatinine Estimated GFR BUN/Creatinine Ratio Glucose POC Glucose 111 H 43 L 68 L Hemoglobin A1c Lactic Acid Calcium Total Bilirubin AST ALT Alkaline Phosphatase Ammonia Total Creatine Kinase CK-MB (CK-2) CK-MB (CK-2) Rel Index Troponin T NT-Pro-B Natriuret Pep Total Protein Albumin Albumin/Globulin Ratio Urine Color Urine Turbidity Urine pH Ur Specific [place] Urine Protein Urine Glucose (UA) Urine Ketones Urine Blood Urine Nitrite Urine Bilirubin Urine Urobilinogen Ur Leukocyte Esterase Urine WBC (Auto) Urine RBC (Auto) Urine Bacteria (Auto) Hyaline Casts Urine Mucus Blood Type Antibody Screen 08/29/17 08/29/17 08/29/17 04:00 04:00 05:46 WBC 38.6 H RBC 3.72 Hgb 10.0 L Hct 32.9 MCV 88 MCH 27 L MCHC 30 RDW 24.8 H Plt Count 204 Lymph % (Auto) Parachute Line Tier Garrett % (Auto) Parachute Line Tier Eos % (Auto) Parachute Line Tier Baso % (Auto) Parachute Line Tier Lymph # Parachute Line Tier Garrett # Parachute Line Tier Eos # Parachute Line Tier Baso # Parachute Line Tier Add Manual Diff Complete Total Counted 100 Seg Neutrophils % Parachute Line Tier Seg Neuts % (Manual) 91.0 H Band Neutrophils % 4.0 Lymphocytes % (Manual) 1.0 L Reactive Lymphs % (Man) 0 Monocytes % (Manual) 4.0 Eosinophils % (Manual) 0 Basophils % (Manual) 0 Metamyelocytes % 0 Myelocytes % 0 Promyelocytes % 0 Blast Cells % 0 Nucleated RBC % Not Reportable Seg Neutrophils # Parachute Line Tier Seg Neutrophils # Man 35.1 H Band Neutrophils # 1.5 Lymphocytes # (Manual) 0.4 L Abs React Lymphs (Man) 0.0 Monocytes # (Manual) 1.5 H Eosinophils # (Manual) 0.0 Basophils # (Manual) 0.0 Metamyelocytes # 0.0 Myelocytes # 0.0 Promyelocytes # 0.0 Blast Cells # 0.0 WBC Morphology Not Reportable Hypersegmented Neuts Not Reportable Hyposegmented Neuts Not Reportable Hypogranular Neuts Not Reportable Smudge Cells Not Reportable Toxic Granulation Not Reportable Toxic Vacuolation Not Reportable Dohle Bodies Not Reportable Pelger-Huet Anomaly Not Reportable Shawn Rods Not Reportable Platelet Estimate Appears normal Clumped Platelets Not Reportable Plt Clumps, EDTA Not Reportable Large Platelets Not Reportable Giant Platelets Not Reportable Platelet Satelliting Not Reportable Plt Morphology Comment Not Reportable RBC Morphology Not Reportable Dimorphic RBCs Not Reportable Polychromasia Few Hypochromasia Few Poikilocytosis 1+ Anisocytosis 1+ Microcytosis Not Reportable Macrocytosis Not Reportable Spherocytes Not Reportable Pappenheimer Bodies Not Reportable Sickle Cells Not Reportable Target Cells Rare Tear Drop Cells Not Reportable Ovalocytes Few Helmet Cells Not Reportable [place] Bodies Not Reportable [place] Rings Not Reportable [place] Cells Few Bite Cells Not Reportable Crenated Cell Not Reportable Elliptocytes Few Acanthocytes (Spur) Not Reportable Rouleaux Not Reportable Hemoglobin C Crystals Not Reportable Schistocytes Not Reportable Malaria parasites Not Reportable Steve Bodies Not Reportable Hem Pathologist Commnt No PT INR VBG pH Sodium 130 L Potassium 4.6 Chloride 95.5 L Carbon Dioxide 12 L Anion Gap 27 BUN 105 H Creatinine 2.6 H Estimated GFR 18 BUN/Creatinine Ratio 40 Glucose 37 L* POC Glucose 48 L Hemoglobin A1c Lactic Acid Calcium 7.3 L Total Bilirubin 3.10 H AST 89 H ALT 48 Alkaline Phosphatase 359 H Ammonia Total Creatine Kinase CK-MB (CK-2) CK-MB (CK-2) Rel Index Troponin T NT-Pro-B Natriuret Pep Total Protein 5.2 L Albumin 2.0 L Albumin/Globulin Ratio 0.6 Urine Color Urine Turbidity Urine pH Ur Specific [place] Urine Protein Urine Glucose (UA) Urine Ketones Urine Blood Urine Nitrite Urine Bilirubin Urine Urobilinogen Ur Leukocyte Esterase Urine WBC (Auto) Urine RBC (Auto) Urine Bacteria (Auto) Hyaline Casts Urine Mucus Blood Type Antibody Screen 08/29/17 08/29/17 08/29/17 07:14 08:13 11:04 WBC RBC Hgb Hct MCV MCH MCHC RDW Plt Count Lymph % (Auto) Garrett % (Auto) Eos % (Auto) Baso % (Auto) Lymph # Garrett # Eos # Baso # Add Manual Diff Total Counted Seg Neutrophils % Seg Neuts % (Manual) Band Neutrophils % Lymphocytes % (Manual) Reactive Lymphs % (Man) Monocytes % (Manual) Eosinophils % (Manual) Basophils % (Manual) Metamyelocytes % Myelocytes % Promyelocytes % Blast Cells % Nucleated RBC % Seg Neutrophils # Seg Neutrophils # Man Band Neutrophils # Lymphocytes # (Manual) Abs React Lymphs (Man) Monocytes # (Manual) Eosinophils # (Manual) Basophils # (Manual) Metamyelocytes # Myelocytes # Promyelocytes # Blast Cells # WBC Morphology Hypersegmented Neuts Hyposegmented Neuts Hypogranular Neuts Smudge Cells Toxic Granulation Toxic Vacuolation Dohle Bodies Pelger-Huet Anomaly Shawn Rods Platelet Estimate Clumped Platelets Plt Clumps, EDTA Large Platelets Giant Platelets Platelet Satelliting Plt Morphology Comment RBC Morphology Dimorphic RBCs Polychromasia Hypochromasia Poikilocytosis Anisocytosis Microcytosis Macrocytosis Spherocytes Pappenheimer Bodies Sickle Cells Target Cells Tear Drop Cells Ovalocytes Helmet Cells [place] Bodies [place] Rings Nalini Cells Bite Cells Crenated Cell Elliptocytes Acanthocytes (Spur) Rouleaux Hemoglobin C Crystals Schistocytes Malaria parasites Steve Bodies Hem Pathologist Commnt PT INR VBG pH Sodium Potassium Chloride Carbon Dioxide Anion Gap BUN Creatinine Estimated GFR BUN/Creatinine Ratio Glucose POC Glucose 67 L 46 L 74 Hemoglobin A1c Lactic Acid Calcium Total Bilirubin AST ALT Alkaline Phosphatase Ammonia Total Creatine Kinase CK-MB (CK-2) CK-MB (CK-2) Rel Index Troponin T NT-Pro-B Natriuret Pep Total Protein Albumin Albumin/Globulin Ratio Urine Color Urine Turbidity Urine pH Ur Specific [place] Urine Protein Urine Glucose (UA) Urine Ketones Urine Blood Urine Nitrite Urine Bilirubin Urine Urobilinogen Ur Leukocyte Esterase Urine WBC (Auto) Urine RBC (Auto) Urine Bacteria (Auto) Hyaline Casts Urine Mucus Blood Type Antibody Screen Assessment and Plan 1.cirrhosis 2.hepatic encephalopathy 3.ascites 4.sepsis 5.GLORIA 6.hypoglycemia 7.hyponatremia 8.dementia -Temp 99.1 -WBC-38.6 -T.nevin 3.10, AST 89, ALT 48, Alk phos 359 -INR 1.75, plt 204 -ammonia 311 -pt with h/o cirrhosis 2/2 HCV -advanced disease -recommend dobhoff placement for feedings/medications -start on lactulose 20gm TID -continue xifaxan -ascites-LVP PRN -electrolyte management per primary team -continue supportive care -will follow
--- NOTE | 2017-08-29 11:42 | Consultation ---
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 (s/p paracentesis 07/2017) and HE), other (major depressive disorder, dementia) Past Surgical History: hysterectomy Social history: other (jail resident, former smoker) Medications and Allergies Allergies Allergy/AdvReac Type Severity Reaction Status Date / Time No Known Allergies Allergy Verified 03/07/17 23:29 Home Medications Medication Instructions Recorded Confirmed Last Taken Type Bisacodyl [Dulcolax suppos] [address] ONCE PRN 01/10/17 08/12/17 08/11/17 History Sertraline [Zoloft] 150 mg PO QAM 01/10/17 08/12/17 08/11/17 History glyBURIDE [Diabeta] 2.5 mg PO DAILY 01/10/17 08/12/17 08/11/17 History HYDROcodone/APAP 5-325 [[place] 1 each PO Q6HR PRN #60 tablet 06/20/17 08/12/17 Rx 5-325 mg TAB] Multivit with Calcium,Iron,Min 1 tab PO DAILY #30 tablet 06/20/17 08/12/1708/11 Rx [Multiple Vitamins For Women] Pantoprazole [Protonix TAB] 20 mg PO QAM #30 tablet. 06/20/17 08/12/17 Rx Spironolactone [Aldactone] 50 mg PO BID #60 tablet 06/20/17 08/12/17 08/11/17 Rx traZODone [Desyrel] 50 mg PO QHS #30 tablet 06/20/17 08/12/17 08/11/17 Rx Lactulose [Cephulac] 10 gm PO QDAY oral.liqd 07/26/17 08/12/17 08/11/17 Rx Rifaximin [Xifaxan] 550 mg PO BID tablet 07/26/17 08/12/17 08/11/17 Rx buPROPion XL [Wellbutrin XL] 150 mg PO QAM tablet 07/26/17 08/12/17 08/11/17 Rx Furosemide [Lasix] 20 mg PO QDAY 08/12/17 08/12/17 08/11/17 History Insulin NPH/Regular [NovoLIN 70/30] 1 - 10 unit SQ QDAC 08/12/17 08/12/17 History Active Meds: Active Medications Acetaminophen (Tylenol) 650 mg PO Q4H PRN PRN Reason: Pain MILD(1-3)/Fever >100.5/APODACA Albuterol (Proventil) 2.5 mg IH Q3HRT PRN PRN Reason: Shortness Of Breath Albuterol/Ipratropium (Duoneb *Not For Prn Use*) 1 ampul IH QIDRT [facility] Last Admin: 08/29/17 07:46 Dose: 1 ampul Bisacodyl (Dulcolax) [address] QDAY PRN PRN Reason: Constipation unrelieved by MOM Enoxaparin Sodium (Lovenox) 30 mg SUB-Q QDAY [facility] Last Admin: 08/28/17 22:50 Dose: Not Given Hydromorphone HCl (Dilaudid) 0.25 mg IV Q3H PRN PRN Reason: Pain, Moderate (4-6) Piperacillin Sod/Tazobactam Sod (Zosyn/Ns 2.25 Gm/50ml) 2.25 gm in 50 mls @ 100 mls/hr IV Q8H [facility] Last Admin: 08/29/17 02:18 Dose: 100 mls/hr Norepinephrine 8 mg/ Sodium (Chloride) 258 mls @ 3.87 mls/hr IV DIRECT JEAN MARIE; 2 MCG/MIN PRN Reason: Protocol Last Admin: 08/29/17 08:09 Dose: 25 mcg/min, 48.37 mls/hr Dextrose (D10w) 1,000 mls @ 100 mls/hr IV DIRECT JEAN MARIE Last Admin: 08/29/17 08:35 Dose: 100 mls/hr Sodium Chloride (Nacl 0.9% 1000 Ml) 1,000 mls @ 100 mls/hr IV DIRECT JEAN MARIE Last Admin: 08/29/17 08:35 Dose: 100 mls/hr Insulin Aspart (Novolog) 0 units SUB-Q Q6HR JEAN MARIE PRN Reason: Protocol Lactulose (Cephulac) 30 gm PO QDAY JEAN MARIE Magnesium Hydroxide (Milk Of Magnesia) 30 ml PO Q4H PRN PRN Reason: Constipation Ondansetron HCl (Zofran) 4 mg IV Q8H PRN PRN Reason: N/V unrelieved by Reglan Pantoprazole Sodium (Protonix) 20 mg PO QAM JEAN MARIE Rifaximin (Xifaxan) 550 mg PO BID JEAN MARIE Sertraline HCl (Zoloft) 150 mg PO QAM JEAN MARIE Vancomycin HCl (Vancomycin Pharmacy To Dose) 1 each IV PKCONSULT JEAN MARIE PRN Reason: Protocol Physical Examination Vital signs: Vital Signs Pulse Resp BP 90 13 144/126 08/28/17 14:16 08/28/17 14:16 08/28/17 14:16 Results - Laboratory Findings CBC and BMP: 08/29/17 04:00 08/29/17 04:00 PT/INR, D-dimer PT 21.4 Sec. (12.2-14.9) H 08/28/17 14:47 INR 1.75 (0.87-1.13) H 08/28/17 14:47 Abnormal lab findings: Abnormal Labs 08/28/17 08/28/17 08/28/17 14:24 14:32 14:44 WBC Hgb MCH RDW Seg Neuts % (Manual) Lymphocytes % (Manual) Seg Neutrophils # Man Lymphocytes # (Manual) Monocytes # (Manual) PT INR VBG pH Sodium Chloride Carbon Dioxide BUN Creatinine Glucose POC Glucose < 40 L 241 H Lactic Acid Calcium Total Bilirubin AST Alkaline Phosphatase Ammonia 311.0 H CK-MB (CK-2) CK-MB (CK-2) Rel Index Total Protein Albumin Urine WBC (Auto) 08/28/17 08/28/17 08/28/17 14:47 14:47 14:47 WBC 18.4 H Hgb 9.9 L MCH 27 L RDW 24.5 H Seg Neuts % (Manual) 96.0 H Lymphocytes % (Manual) 0 L Seg Neutrophils # Man 17.7 H Lymphocytes # (Manual) 0.0 L Monocytes # (Manual) PT 21.4 H INR 1.75 H VBG pH Sodium 126 L Chloride 92.8 L Carbon Dioxide 16 L BUN 125 H Creatinine 2.9 H Glucose 174 H POC Glucose Lactic Acid Calcium 7.4 L Total Bilirubin 2.70 H AST 60 H Alkaline Phosphatase 331 H Ammonia CK-MB (CK-2) CK-MB (CK-2) Rel Index Total Protein 5.3 L Albumin 1.9 L Urine WBC (Auto) 08/28/17 08/28/17 08/28/17 14:47 14:47 14:47 WBC Hgb MCH RDW Seg Neuts % (Manual) Lymphocytes % (Manual) Seg Neutrophils # Man Lymphocytes # (Manual) Monocytes # (Manual) PT INR VBG pH 7.251 L Sodium Chloride Carbon Dioxide BUN Creatinine Glucose POC Glucose Lactic Acid 2.20 H* Calcium Total Bilirubin AST Alkaline Phosphatase Ammonia CK-MB (CK-2) 4.7 H CK-MB (CK-2) Rel Index 8.7 H Total Protein Albumin Urine WBC (Auto) 08/28/17 08/28/17 08/28/17 16:06 18:00 18:04 WBC Hgb MCH RDW Seg Neuts % (Manual) Lymphocytes % (Manual) Seg Neutrophils # Man Lymphocytes # (Manual) Monocytes # (Manual) PT INR VBG pH Sodium Chloride Carbon Dioxide BUN Creatinine Glucose POC Glucose 267 H Lactic Acid 3.50 H* Calcium Total Bilirubin AST Alkaline Phosphatase Ammonia CK-MB (CK-2) CK-MB (CK-2) Rel Index Total Protein Albumin Urine WBC (Auto) 9.0 H 08/28/17 08/29/17 08/29/17 19:42 02:32 03:54 WBC Hgb MCH RDW Seg Neuts % (Manual) Lymphocytes % (Manual) Seg Neutrophils # Man Lymphocytes # (Manual) Monocytes # (Manual) PT INR VBG pH Sodium Chloride Carbon Dioxide BUN Creatinine Glucose POC Glucose 111 H 43 L 68 L Lactic Acid Calcium Total Bilirubin AST Alkaline Phosphatase Ammonia CK-MB (CK-2) CK-MB (CK-2) Rel Index Total Protein Albumin Urine WBC (Auto) 08/29/17 08/29/17 08/29/17 04:00 04:00 05:46 WBC 38.6 H Hgb 10.0 L MCH 27 L RDW 24.8 H Seg Neuts % (Manual) 91.0 H Lymphocytes % (Manual) 1.0 L Seg Neutrophils # Man 35.1 H Lymphocytes # (Manual) 0.4 L Monocytes # (Manual) 1.5 H PT INR VBG pH Sodium 130 L Chloride 95.5 L Carbon Dioxide 12 L BUN 105 H Creatinine 2.6 H Glucose 37 L* POC Glucose 48 L Lactic Acid Calcium 7.3 L Total Bilirubin 3.10 H AST 89 H Alkaline Phosphatase 359 H Ammonia CK-MB (CK-2) CK-MB (CK-2) Rel Index Total Protein 5.2 L Albumin 2.0 L Urine WBC (Auto) 08/29/17 08/29/17 07:14 08:13 WBC Hgb MCH RDW Seg Neuts % (Manual) Lymphocytes % (Manual) Seg Neutrophils # Man Lymphocytes # (Manual) Monocytes # (Manual) PT INR VBG pH Sodium Chloride Carbon Dioxide BUN Creatinine Glucose POC Glucose 67 L 46 L Lactic Acid Calcium Total Bilirubin AST Alkaline Phosphatase Ammonia CK-MB (CK-2) CK-MB (CK-2) Rel Index Total Protein Albumin Urine WBC (Auto)
--- NOTE | 2017-08-29 12:13 | Progress Note ---
Assessment and Plan Assessment and plan: 66-year-old femalewith multiple admissions comes in for severe confusion and Lethargy.Has difficulty breathing. Presents from a nursing facility with difficulty breathing and altered mental status.patient was recently disharged after being treated for Hepatic encephalopathy.No fever or chills Recent Discharge summary from 07/26/17 -----The patient is a 66 year old female sent from the long-term apparently for altered mental status and anemia. GI consultation was requested for elevated LFTs, cirrhosis and possible hepatic encephalopathy. She has dementia and gave little history but is aware of advanced liver disease and hepatitis C. She does not know whether she has been treated and does not recall any current treating physicians. She has several comorbid conditions as below. No observed bleeding was noted during the hospitalization. Alk phos was 1080, AST 246, ALT 115, INR 1.42. The patient underwent paracentesis on 07/23/17 with removal of almost 7L of fluid. She has all the patient in consultation and felt patient was clinically improved and offered no further recommendations after paracentesis. Altered mental status was felt to be secondary to worsening dementia. Ammonia level was normal and unlikely due to hepatic encephalopathy. Patient received PRBCs for the anemia with posttransfusion hemoglobin of 9. - Patient Problems (1) Sepsis Current Visit: Yes Status: Acute Plan to address problem: From Urine versus spontaneous Bacterial peritonitis.Started on IV Zosyn and Vancomycin Pressors if necessary (2) Hepatic encephalopathy Current Visit: No Status: Acute Plan to address problem: Lactulose and Xifaxam Paracentesis ordered (3) GLORIA (acute kidney injury) Current Visit: Yes Status: Acute Plan to address problem: Nephrology consulted (4) Hyperammonemia Current Visit: Yes Status: Acute Plan to address problem: Cont Lactulose and Xifaxam (5) Hypoglycemia Current Visit: Yes Status: Acute Plan to address problem: Will stop oral Hypoglycemics for ever. Insulin coverage for now and 70/30 at discharge.Prefer BG in 150 to 300 range given her comorbidities (6) Hyponatremia Current Visit: No Status: Acute Plan to address problem: Patient has Ascites too.will defer to Nephrology (7) UTI (urinary tract infection) Current Visit: No Status: Acute Qualifiers: Urinary tract infection type: acute cystitis Plan to address problem: On Zosyn for sepsis (8) IDDM (insulin dependent diabetes mellitus) Current Visit: Yes Status: Chronic Plan to address problem: No oral hypoglycemics Insulin coverage Check A1c (9) Ascites Current Visit: Yes Status: Chronic Qualifiers: Ascites type: other type Qualified Code(s): R18.8 - Other ascites Plan to address problem: Paracentesis prn (10) Malnutrition Current Visit: Yes Status: Chronic Qualifiers: Protein-calorie malnutrition severity: severe Plan to address problem: Dietitian consult (11) DVT prophylaxis Current Visit: Yes Status: Acute Plan to address problem: Scd's The high probability of a clinically significant, sudden or life threatening deterioration of the [Pulmonary, cadiac, renal] system(s) required my full and direct attention, intervention and personal management. The aggregate critical care time was [45] minutes. This time is in addition to time spent performing reported procedures but includes the following: [x] Data Review and interpretation [x] Patient assessment and monitoring of vital signs [x] Documentation [x] Medication orders and management Advance Directives: Yes (Full code) VTE prophylaxis?: Chemical Plan of care discussed with patient/family: Yes Hospitalist Physical - Constitutional Vitals: Temp Pulse Resp BP Pulse Ox 99.1 F 124 H 25 H 84/43 100 08/29/17 08:00 08/29/17 10:11 08/29/17 10:11 08/29/17 10:11 08/29/17 10:11 General appearance: Present: mild distress, well-nourished Results - Labs CBC & Chem 7: 08/29/17 04:00 08/29/17 04:00 Labs: Laboratory Last Values WBC 38.6 K/mm3 (4.5-11.0) H 08/29/17 04:00 RBC 3.72 M/mm3 (3.65-5.03) 08/29/17 04:00 Hgb 10.0 gm/dl (10.1-14.3) L 08/29/17 04:00 Hct 32.9 % (30.3-42.9) 08/29/17 04:00 MCV 88 fl (79-97) 08/29/17 04:00 MCH 27 pg (28-32) L 08/29/17 04:00 MCHC 30 % (30-34) 08/29/17 04:00 RDW 24.8 % (13.2-15.2) H 08/29/17 04:00 Plt Count 204 K/mm3 (140-440) 08/29/17 04:00 Lymph % (Auto) [place] 08/29/17 04:00 [place] % (Auto) [place] [employer] 08/29/17 04:00 Eos % (Auto) [place] 08/29/17 04:00 Baso % (Auto) [place] 08/29/17 04:00 Lymph # [place] 08/29/17 04:00 [place] # [place] [employer] 08/29/17 04:00 Eos # [place] 08/29/17 04:00 Baso # [place] 08/29/17 04:00 Add Manual Diff Complete 08/29/17 04:00 Total Counted 100 08/29/17 04:00 Seg Neutrophils % [place] 08/29/17 04:00 Seg Neuts % (Manual) 91.0 % (40.0-70.0) H 08/29/17 04:00 Band Neutrophils % 4.0 % 08/29/17 04:00 Lymphocytes % (Manual) 1.0 % (13.4-35.0) L 08/29/17 04:00 Reactive Lymphs % (Man) 0 % 08/29/17 04:00 Monocytes % (Manual) 4.0 % (0.0-7.3) 08/29/17 04:00 Eosinophils % (Manual) 0 % (0.0-4.3) 08/29/17 04:00 Basophils % (Manual) 0 % (0.0-1.8) 08/29/17 04:00 Metamyelocytes % 0 % 08/29/17 04:00 Myelocytes % 0 % 08/29/17 04:00 Promyelocytes % 0 % 08/29/17 04:00 Blast Cells % 0 % 08/29/17 04:00 Nucleated RBC % Not Reportable 08/29/17 04:00 Seg Neutrophils # [place] 08/29/17 04:00 Seg Neutrophils # Man 35.1 K/mm3 (1.8-7.7) H 08/29/17 04:00 Band Neutrophils # 1.5 K/mm3 08/29/17 04:00 Lymphocytes # (Manual) 0.4 K/mm3 (1.2-5.4) L 08/29/17 04:00 Abs React Lymphs (Man) 0.0 K/mm3 08/29/17 04:00 Monocytes # (Manual) 1.5 K/mm3 (0.0-0.8) H 08/29/17 04:00 Eosinophils # (Manual) 0.0 K/mm3 (0.0-0.4) 08/29/17 04:00 Basophils # (Manual) 0.0 K/mm3 (0.0-0.1) 08/29/17 04:00 Metamyelocytes # 0.0 K/mm3 08/29/17 04:00 Myelocytes # 0.0 K/mm3 08/29/17 04:00 Promyelocytes # 0.0 K/mm3 08/29/17 04:00 Blast Cells # 0.0 K/mm3 08/29/17 04:00 WBC Morphology Not Reportable 08/29/17 04:00 Hypersegmented Neuts Not Reportable 08/29/17 04:00 Hyposegmented Neuts Not Reportable 08/29/17 04:00 Hypogranular Neuts Not Reportable 08/29/17 04:00 Smudge Cells Not Reportable 08/29/17 04:00 Toxic Granulation Not Reportable 08/29/17 04:00 Toxic Vacuolation Not Reportable 08/29/17 04:00 Dohle Bodies Not Reportable 08/29/17 04:00 Pelger-Huet Anomaly Not Reportable 08/29/17 04:00 Shawn Rods Not Reportable 08/29/17 04:00 Platelet Estimate Appears normal 08/29/17 04:00 Clumped Platelets Not Reportable 08/29/17 04:00 Plt Clumps, EDTA Not Reportable 08/29/17 04:00 Large Platelets Not Reportable 08/29/17 04:00 Giant Platelets Not Reportable 08/29/17 04:00 Platelet Satelliting Not Reportable 08/29/17 04:00 Plt Morphology Comment Not Reportable 08/29/17 04:00 RBC Morphology Not Reportable 08/29/17 04:00 Dimorphic RBCs Not Reportable 08/29/17 04:00 Polychromasia Few 08/29/17 04:00 Hypochromasia Few 08/29/17 04:00 Poikilocytosis 1+ 08/29/17 04:00 Anisocytosis 1+ 08/29/17 04:00 Microcytosis Not Reportable 08/29/17 04:00 Macrocytosis Not Reportable 08/29/17 04:00 Spherocytes Not Reportable 08/29/17 04:00 Pappenheimer Bodies Not Reportable 08/29/17 04:00 Sickle Cells Not Reportable 08/29/17 04:00 Target Cells Rare 08/29/17 04:00 Tear Drop Cells Not Reportable 08/29/17 04:00 Ovalocytes Few 08/29/17 04:00 Helmet Cells Not Reportable 08/29/17 04:00 [place] Bodies Not Reportable 08/29/17 04:00 [place] Rings Not Reportable 08/29/17 04:00 [place] Cells Few 08/29/17 04:00 Bite Cells Not Reportable 08/29/17 04:00 Crenated Cell Not Reportable 08/29/17 04:00 Elliptocytes Few 08/29/17 04:00 Acanthocytes (Spur) Not Reportable 08/29/17 04:00 Rouleaux Not Reportable 08/29/17 04:00 Hemoglobin C Crystals Not Reportable 08/29/17 04:00 Schistocytes Not Reportable 08/29/17 04:00 Malaria parasites Not Reportable 08/29/17 04:00 Steve Bodies Not Reportable 08/29/17 04:00 Hem Pathologist Commnt No 08/29/17 04:00 PT 21.4 Sec. (12.2-14.9) H 08/28/17 14:47 INR 1.75 (0.87-1.13) H 08/28/17 14:47 VBG pH 7.251 (7.320-7.420) L 08/28/17 14:47 Sodium 130 mmol/L (137-145) L 08/29/17 04:00 Potassium 4.6 mmol/L (3.6-5.0) 08/29/17 04:00 Chloride 95.5 mmol/L (98-107) L 08/29/17 04:00 Carbon Dioxide 12 mmol/L (22-30) L 08/29/17 04:00 Anion Gap 27 mmol/L 08/29/17 04:00 BUN 105 mg/dL (7-17) H 08/29/17 04:00 Creatinine 2.6 mg/dL (0.7-1.2) H 08/29/17 04:00 Estimated GFR 18 ml/min 08/29/17 04:00 BUN/Creatinine Ratio 40 % 08/29/17 04:00 Glucose 37 mg/dL (65-100) L* 08/29/17 04:00 POC Glucose 74 (70-105) 08/29/17 11:04 Hemoglobin A1c 4.3 % (4-6) 08/28/17 14:47 Lactic Acid 3.50 mmol/L (0.7-2.0) H* 08/28/17 18:00 Calcium 7.3 mg/dL (8.4-10.2) L 08/29/17 04:00 Total Bilirubin 3.10 mg/dL (0.1-1.2) H 08/29/17 04:00 AST 89 units/L (5-40) H 08/29/17 04:00 ALT 48 units/L (7-56) 08/29/17 04:00 Alkaline Phosphatase 359 units/L (35-129) H 08/29/17 04:00 Ammonia 311.0 umol/L (25-60) H 08/28/17 14:32 Total Creatine Kinase 54 units/L (30-135) 08/28/17 14:47 CK-MB (CK-2) 4.7 ng/mL (0.0-4.0) H 08/28/17 14:47 CK-MB (CK-2) Rel Index 8.7 (0-4) H 08/28/17 14:47 Troponin T < 0.010 ng/mL (0.00-0.029) 08/28/17 14:47 NT-Pro-B Natriuret Pep 706.9 pg/mL (0-900) 08/28/17 14:47 Total Protein 5.2 g/dL (6.3-8.2) L 08/29/17 04:00 Albumin 2.0 g/dL (3.9-5) L 08/29/17 04:00 Albumin/Globulin Ratio 0.6 % 08/29/17 04:00 Urine Color [place] (Yellow) 08/28/17 16:06 Urine Turbidity Clear (Clear) 08/28/17 16:06 Urine pH 5.0 (5.0-7.0) 08/28/17 16:06 Ur Specific [place] 1.014 (1.003-1.030) 08/28/17 16:06 Urine Protein <15 mg/dl mg/dL (Negative) 08/28/17 16:06 Urine Glucose (UA) Neg mg/dL (Negative) 08/28/17 16:06 Urine Ketones Neg mg/dL (Negative) 08/28/17 16:06 Urine Blood Neg (Negative) 08/28/17 16:06 Urine Nitrite Neg (Negative) 08/28/17 16:06 Urine Bilirubin Neg (Negative) 08/28/17 16:06 Urine Urobilinogen 4.0 mg/dL (<2.0) 08/28/17 16:06 Ur Leukocyte Esterase Sm (Negative) 08/28/17 16:06 Urine WBC (Auto) 9.0 /HPF (0.0-6.0) H 08/28/17 16:06 Urine RBC (Auto) 1.0 /HPF (0.0-6.0) 08/28/17 16:06 Urine Bacteria (Auto) 1+ /HPF (Negative) 08/28/17 16:06 Hyaline Casts 1 /LPF 08/28/17 16:06 Urine Mucus Few /HPF 08/28/17 16:06 Blood Type O POSITIVE 08/28/17 14:40 Antibody Screen Negative 08/28/17 14:40
[2017-08-29] MEDS: LOVENOX SUB-Q SCH (13:23)
[2017-08-29] MEDS ORDERED: Vasostrict 20 UNIT in NACL 0.9% 100 ML IV SCH (14:00)
[2017-08-29] MEDS: NOVOLOG SUB-Q SCH ×2 (14:03→20:23)
--- NOTE | 2017-08-29 14:08 | Ultrasound Report ---
ULTRASOUND RENAL BILATERAL HISTORY: Acute renal failure. TECHNIQUE: transabdominal ultrasound with color Doppler interrogation. FINDINGS: The right kidney measures 10.5cm. Right renal cortex: 1.2cm. The left kidney measures 10.8cm. Left renal cortex: 1.2cm. Both kidneys are normal size, contour and position. There is mild increased renal parenchymal echotexture consistent with nonspecific renal parenchymal disease. There are 2 complex cystic lesions in the superior right kidney measuring 1.6 cm and 2.6 cm. There appears to be internal debris. Correlation with the CT abdomen pelvis dated 07/23/17, 06/15/17 and 02/06/15 suggest hemorrhagic cysts. No hypervascular mass is appreciated. No nephrolithiasis or hydronephrosis. The bladder is empty and contains a Scott catheter. Small pelvic ascites is noted. IMPRESSION: Nonspecific renal parenchymal disease. No obstructive uropathy. Complex cysts at the superior pole of the right kidney which appear essentially unchanged since CT abdomen pelvis with contrast dated 02/06/15. Probable hemorrhagic cysts.
--- NOTE | 2017-08-29 15:34 | Consultation ---
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 The patient is currently lethargic and unable to give a history. No family members at bedside. History taken from review of chart. Of note, patient was recently admitted in early June 2017, she was having diarrhea and a UTI. Stool for Cdiff positive on 06/16/17. In the emergency room, initial temperature was 95.4, heart rate 100, respirations 10, O2 sat 90, blood pressure 70/30. Initial white count 18,400 which then went to 38,000. Initial hemoglobin 9.9. Platelets 201. Creatinine 2.9. Lactic acid 2.2. Ammonia 311. CRP 8.6. Urinalysis showed 9 white blood cells and small leukocyte esterase. Chest x-ray show a 4.4 x 3.4 cm density right middle lobe and a 2 x 2 cm patchy density in the right upper lobe. Ultrasound of the abdomen showed a complex cyst in the right kidney. Patient currently is in the ICU on vasopressin. Microbiology: Blood cultures: 08/28 ngtd Urine cultures: Respiratory cultures: Current Antimicrobials: Zosyn Vanco Previous Antimicrobials: 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 (s/p paracentesis 07/2017) and HE), other (major depressive disorder, dementia) Past Surgical History: hysterectomy Social history: other (residential resident, former smoker) Medications and Allergies Allergies Allergy/AdvReac Type Severity Reaction Status Date / Time No Known Allergies Allergy Verified 03/07/17 23:29 Home Medications Medication Instructions Recorded Confirmed Last Taken Type Bisacodyl [Dulcolax suppos] 10 mg RI ONCE PRN 01/10/17 08/12/17 08/11/17 History Sertraline [Zoloft] 150 mg PO QAM 01/10/17 08/12/17 08/11/17 History glyBURIDE [Diabeta] 2.5 mg PO DAILY 01/10/17 08/12/17 08/11/17 History HYDROcodone/APAP 5-325 [[place] 1 each PO Q6HR PRN #60 tablet 06/20/17 08/12/17 Rx 5-325 mg TAB] Multivit with Calcium,Iron,Min 1 tab PO DAILY #30 tablet 06/20/17 08/12/1708/11 Rx [Multiple Vitamins For Women] Pantoprazole [Protonix TAB] 20 mg PO QAM #30 tablet. 06/20/17 08/12/17 Rx Spironolactone [Aldactone] 50 mg PO BID #60 tablet 06/20/17 08/12/17 08/11/17 Rx traZODone [Desyrel] 50 mg PO QHS #30 tablet 06/20/17 08/12/17 08/11/17 Rx Lactulose [Cephulac] 10 gm PO QDAY oral.liqd 07/26/17 08/12/17 08/11/17 Rx Rifaximin [Xifaxan] 550 mg PO BID tablet 07/26/17 08/12/17 08/11/17 Rx buPROPion XL [Wellbutrin XL] 150 mg PO QAM tablet 07/26/17 08/12/17 08/11/17 Rx Furosemide [Lasix] 20 mg PO QDAY 08/12/17 08/12/17 08/11/17 History Insulin NPH/Regular [NovoLIN 70/30] 1 - 10 unit SQ QDAC 08/12/17 08/12/17 History Active Meds: Active Medications Acetaminophen (Tylenol) 650 mg PO Q4H PRN PRN Reason: Pain MILD(1-3)/Fever >100.5/APODACA Albuterol (Proventil) 2.5 mg IH Q3HRT PRN PRN Reason: Shortness Of Breath Albuterol/Ipratropium (Duoneb *Not For Prn Use*) 1 ampul IH QIDRT [facility] Last Admin: 08/29/17 13:58 Dose: 1 ampul Bisacodyl (Dulcolax) 10 mg RI QDAY PRN PRN Reason: Constipation unrelieved by MOM Enoxaparin Sodium (Lovenox) 30 mg SUB-Q QDAY [facility] Last Admin: 08/29/17 13:23 Dose: 30 mg Hydrocortisone Sodium Succinate (Solu-Cortef) 100 mg IV Q8HR JEAN MARIE Hydromorphone HCl (Dilaudid) 0.25 mg IV Q3H PRN PRN Reason: Pain, Moderate (4-6) Piperacillin Sod/Tazobactam Sod (Zosyn/Ns 2.25 Gm/50ml) 2.25 gm in 50 mls @ 100 mls/hr IV Q8H JEAN MARIE Last Admin: 08/29/17 13:24 Dose: 100 mls/hr Norepinephrine 8 mg/ Sodium (Chloride) 258 mls @ 3.87 mls/hr IV DIRECT JEAN MARIE; 2 MCG/MIN PRN Reason: Protocol Last Admin: 08/29/17 08:09 Dose: 25 mcg/min, 48.37 mls/hr Dextrose (D10w) 1,000 mls @ 100 mls/hr IV DIRECT JEAN MARIE Last Admin: 08/29/17 08:35 Dose: 100 mls/hr Sodium Chloride (Nacl 0.9% 1000 Ml) 1,000 mls @ 100 mls/hr IV DIRECT JEAN MARIE Last Admin: 08/29/17 08:35 Dose: 100 mls/hr Vasopressin 20 unit/ Sodium (Chloride) 101 mls @ 9.09 mls/hr IV TITR JEAN MARIE; 0.03 UNITS/MIN PRN Reason: Protocol Insulin Aspart (Novolog) 0 units SUB-Q Q6HR JEAN MARIE PRN Reason: Protocol Last Admin: 08/29/17 14:03 Dose: Not Given Lactulose (Cephulac) 20 gm PO TID JEAN MARIE Magnesium Hydroxide (Milk Of Magnesia) 30 ml PO Q4H PRN PRN Reason: Constipation Ondansetron HCl (Zofran) 4 mg IV Q8H PRN PRN Reason: N/V unrelieved by Reglan Pantoprazole Sodium (Protonix) 20 mg PO QAM JEAN MARIE Rifaximin (Xifaxan) 550 mg PO BID JEAN MARIE Sertraline HCl (Zoloft) 150 mg PO QAM JEAN MARIE Vancomycin HCl (Vancomycin Pharmacy To Dose) 1 each IV PKCONSULT JEAN MARIE PRN Reason: Protocol Review of Systems ROS unobtainable: due to mental status Physical Examination - Physical Exam Narrative exam: General appearance: lethargic debilitated in mild SOB Eyes: anicteric sclerae, moist conjunctivae; no lid-lag; PERRLA HENT: Atraumatic; oropharynx dry Neck: Trachea midline; supple, no thyromegaly or lymphadenopathy Lungs: distant BS CV: RRR, no murmurs Abdomen: Soft, +ascitic wave Extremities: marked nevin leg / arm edema Skin: extensive nevin arms/legs ecchymoses Psych: lethargic Neuro: lethargic Lines: right fem TLC - Constitutional Vitals: Vital Signs Temp Pulse Resp BP Pulse Ox 98.2 F 133 H 17 91/49 100 08/29/17 12:00 08/29/17 13:59 08/29/17 13:59 08/29/17 12:00 08/29/17 12:00 Temperature -Last 24 Hours Temperature 98.2 F Temperature 99.1 F Temperature 99.0 F Temperature 96.8 F Results - Labs CBC & Chem 7: 08/29/17 04:00 08/29/17 04:00 Labs: Abnormal lab results 08/28/17 08/28/17 08/28/17 Range/Units 14:47 14:47 14:47 WBC 18.4 H (4.5-11.0) K/mm3 Hgb 9.9 L (10.1-14.3) gm/dl MCH 27 L (28-32) pg RDW 24.5 H (13.2-15.2) % Seg Neuts % (Manual) 96.0 H (40.0-70.0) % Lymphocytes % (Manual) 0 L (13.4-35.0) % Seg Neutrophils # Man 17.7 H (1.8-7.7) K/mm3 Lymphocytes # (Manual) 0.0 L (1.2-5.4) K/mm3 Monocytes # (Manual) (0.0-0.8) K/mm3 POC ABG pH (7.35-7.45) POC ABG pCO2 (35-45) Sodium 126 L (137-145) mmol/L Chloride 92.8 L (98-107) mmol/L Carbon Dioxide 16 L (22-30) mmol/L BUN 125 H (7-17) mg/dL Creatinine 2.9 H (0.7-1.2) mg/dL Glucose 174 H (65-100) mg/dL POC Glucose (70-105) Lactic Acid (0.7-2.0) mmol/L Calcium 7.4 L (8.4-10.2) mg/dL Total Bilirubin 2.70 H (0.1-1.2) mg/dL AST 60 H (5-40) units/L Alkaline Phosphatase 331 H (35-129) units/L CK-MB (CK-2) 4.7 H (0.0-4.0) ng/mL CK-MB (CK-2) Rel Index 8.7 H (0-4) C-Reactive Protein (0.00-1.30) mg/dL Total Protein 5.3 L (6.3-8.2) g/dL Albumin 1.9 L (3.9-5) g/dL Urine WBC (Auto) (0.0-6.0) /HPF 08/28/17 08/28/17 08/28/17 Range/Units 16:06 18:00 18:04 WBC (4.5-11.0) K/mm3 Hgb (10.1-14.3) gm/dl MCH (28-32) pg RDW (13.2-15.2) % Seg Neuts % (Manual) (40.0-70.0) % Lymphocytes % (Manual) (13.4-35.0) % Seg Neutrophils # Man (1.8-7.7) K/mm3 Lymphocytes # (Manual) (1.2-5.4) K/mm3 Monocytes # (Manual) (0.0-0.8) K/mm3 POC ABG pH (7.35-7.45) POC ABG pCO2 (35-45) Sodium (137-145) mmol/L Chloride (98-107) mmol/L Carbon Dioxide (22-30) mmol/L BUN (7-17) mg/dL Creatinine (0.7-1.2) mg/dL Glucose (65-100) mg/dL POC Glucose 267 H (70-105) Lactic Acid 3.50 H* (0.7-2.0) mmol/L Calcium (8.4-10.2) mg/dL Total Bilirubin (0.1-1.2) mg/dL AST (5-40) units/L Alkaline Phosphatase (35-129) units/L CK-MB (CK-2) (0.0-4.0) ng/mL CK-MB (CK-2) Rel Index (0-4) C-Reactive Protein (0.00-1.30) mg/dL Total Protein (6.3-8.2) g/dL Albumin (3.9-5) g/dL Urine WBC (Auto) 9.0 H (0.0-6.0) /HPF 08/28/17 08/29/17 08/29/17 Range/Units 19:42 02:32 03:54 WBC (4.5-11.0) K/mm3 Hgb (10.1-14.3) gm/dl MCH (28-32) pg RDW (13.2-15.2) % Seg Neuts % (Manual) (40.0-70.0) % Lymphocytes % (Manual) (13.4-35.0) % Seg Neutrophils # Man (1.8-7.7) K/mm3 Lymphocytes # (Manual) (1.2-5.4) K/mm3 Monocytes # (Manual) (0.0-0.8) K/mm3 POC ABG pH (7.35-7.45) POC ABG pCO2 (35-45) Sodium (137-145) mmol/L Chloride (98-107) mmol/L Carbon Dioxide (22-30) mmol/L BUN (7-17) mg/dL Creatinine (0.7-1.2) mg/dL Glucose (65-100) mg/dL POC Glucose 111 H 43 L 68 L (70-105) Lactic Acid (0.7-2.0) mmol/L Calcium (8.4-10.2) mg/dL Total Bilirubin (0.1-1.2) mg/dL AST (5-40) units/L Alkaline Phosphatase (35-129) units/L CK-MB (CK-2) (0.0-4.0) ng/mL CK-MB (CK-2) Rel Index (0-4) C-Reactive Protein (0.00-1.30) mg/dL Total Protein (6.3-8.2) g/dL Albumin (3.9-5) g/dL Urine WBC (Auto) (0.0-6.0) /HPF 08/29/17 08/29/17 08/29/17 Range/Units 04:00 04:00 05:46 WBC 38.6 H (4.5-11.0) K/mm3 Hgb 10.0 L (10.1-14.3) gm/dl MCH 27 L (28-32) pg RDW 24.8 H (13.2-15.2) % Seg Neuts % (Manual) 91.0 H (40.0-70.0) % Lymphocytes % (Manual) 1.0 L (13.4-35.0) % Seg Neutrophils # Man 35.1 H (1.8-7.7) K/mm3 Lymphocytes # (Manual) 0.4 L (1.2-5.4) K/mm3 Monocytes # (Manual) 1.5 H (0.0-0.8) K/mm3 POC ABG pH (7.35-7.45) POC ABG pCO2 (35-45) Sodium 130 L (137-145) mmol/L Chloride 95.5 L (98-107) mmol/L Carbon Dioxide 12 L (22-30) mmol/L BUN 105 H (7-17) mg/dL Creatinine 2.6 H (0.7-1.2) mg/dL Glucose 37 L* (65-100) mg/dL POC Glucose 48 L (70-105) Lactic Acid (0.7-2.0) mmol/L Calcium 7.3 L (8.4-10.2) mg/dL Total Bilirubin 3.10 H (0.1-1.2) mg/dL AST 89 H (5-40) units/L Alkaline Phosphatase 359 H (35-129) units/L CK-MB (CK-2) (0.0-4.0) ng/mL CK-MB (CK-2) Rel Index (0-4) C-Reactive Protein (0.00-1.30) mg/dL Total Protein 5.2 L (6.3-8.2) g/dL Albumin 2.0 L (3.9-5) g/dL Urine WBC (Auto) (0.0-6.0) /HPF 08/29/17 08/29/17 08/29/17 Range/Units 07:14 08:13 12:49 WBC (4.5-11.0) K/mm3 Hgb (10.1-14.3) gm/dl MCH (28-32) pg RDW (13.2-15.2) % Seg Neuts % (Manual) (40.0-70.0) % Lymphocytes % (Manual) (13.4-35.0) % Seg Neutrophils # Man (1.8-7.7) K/mm3 Lymphocytes # (Manual) (1.2-5.4) K/mm3 Monocytes # (Manual) (0.0-0.8) K/mm3 POC ABG pH (7.35-7.45) POC ABG pCO2 (35-45) Sodium (137-145) mmol/L Chloride (98-107) mmol/L Carbon Dioxide (22-30) mmol/L BUN (7-17) mg/dL Creatinine (0.7-1.2) mg/dL Glucose (65-100) mg/dL POC Glucose 67 L 46 L (70-105) Lactic Acid 3.30 H* (0.7-2.0) mmol/L Calcium (8.4-10.2) mg/dL Total Bilirubin (0.1-1.2) mg/dL AST (5-40) units/L Alkaline Phosphatase (35-129) units/L CK-MB (CK-2) (0.0-4.0) ng/mL CK-MB (CK-2) Rel Index (0-4) C-Reactive Protein (0.00-1.30) mg/dL Total Protein (6.3-8.2) g/dL Albumin (3.9-5) g/dL Urine WBC (Auto) (0.0-6.0) /HPF 08/29/17 08/29/17 Range/Units 12:49 14:14 WBC (4.5-11.0) K/mm3 Hgb (10.1-14.3) gm/dl MCH (28-32) pg RDW (13.2-15.2) % Seg Neuts % (Manual) (40.0-70.0) % Lymphocytes % (Manual) (13.4-35.0) % Seg Neutrophils # Man (1.8-7.7) K/mm3 Lymphocytes # (Manual) (1.2-5.4) K/mm3 Monocytes # (Manual) (0.0-0.8) K/mm3 POC ABG pH 7.292 L (7.35-7.45) POC ABG pCO2 19.7 L (35-45) Sodium (137-145) mmol/L Chloride (98-107) mmol/L Carbon Dioxide (22-30) mmol/L BUN (7-17) mg/dL Creatinine (0.7-1.2) mg/dL Glucose (65-100) mg/dL POC Glucose (70-105) Lactic Acid (0.7-2.0) mmol/L Calcium (8.4-10.2) mg/dL Total Bilirubin (0.1-1.2) mg/dL AST (5-40) units/L Alkaline Phosphatase (35-129) units/L CK-MB (CK-2) (0.0-4.0) ng/mL CK-MB (CK-2) Rel Index (0-4) C-Reactive Protein 8.60 H (0.00-1.30) mg/dL Total Protein (6.3-8.2) g/dL Albumin (3.9-5) g/dL Urine WBC (Auto) (0.0-6.0) /HPF Assessment and Plan Assessment: 1) Severe Sepsis with septic shock: Present on admission, manifested by hypothermia, tachycardia, leukocytosis. Etiology most likely ? pneumonia ? SBP ? C diff 2) End stage liver disease / cirrhosis from HCV with ascitis and hepatic encephalopathy 3) Resp failure 4) Presumed pneumonia 5) History of C diff 6) Anemia 7) GLORIA 8) Coagulopathy Plan: -follow-up blood cultures, UA -obtain procalcitonin, C-reactive protein (CRP) -contact isolation due to h/o Cdiff -continue zosyn and vanco - renally dosed poor prognosis Thank you for your consultation, will follow up with you. Shandra Suero MD Infectious Diseases Specialist [facility], [place], [facility] ([facility]) M [phone] O [phone]
--- NOTE | 2017-08-29 15:49 | XRay Report ---
FINAL REPORT EXAM: XR ABDOMEN 1V AP HISTORY: NGT placement for urgent medication administration TECHNIQUE: Supine view of the abdomen PRIORS: None. FINDINGS: Nasogastric tube is not visualized on this film. A chest x-ray is recommended to evaluate placement of the NG tube. A left femoral catheter is in place. The bowel gas pattern is nonspecific. No free air is identified. Soft tissues have no evidence for mass shadows. Vascular calcifications are noted. The bony structures are intact. IMPRESSION: Nasogastric tube is not visualized on this film. A chest x-ray may be helpful to evaluate placement.
--- NOTE | 2017-08-29 17:29 | Discharge Summary ---
Providers - Providers Date of Admission: 08/28/17 21:52 Attending physician: ALLYSON AUGUSTINE MD 08/28/17 21:52 Consult to Physician [CONS] Routine Consulting Provider: ADRIAN LIAO Reason For Exam: sepsis Place consult to:: ANSWERING SERVICE Notified:: Y Phone number called:: [phone] Time called:: 22:18 Comment:: CALLED FOR DR. ACHARYA 08/29/17 06:34 Consult to Wound/ET Nurse [CONS] Routine Reason For Exam: wound eval 08/29/17 06:42 Consult to Physician [CONS] Routine Consulting Provider: JESICA NORRIS Reason For Exam: Sepsis Notified:: yes 08/29/17 07:08 Consult to Dietitian/Nutrition [CONS] Routine Physician Instructions: Reason For Exam: Malnutrition Reason for Consult: Pt needs oral supplement 08/29/17 07:09 Consult to Physician [CONS] Routine Consulting Provider: SAPNA RAI Reason For Exam: Hepatic Encephalopathy Notified:: yes Consult to Physician [CONS] Routine Consulting Provider: FRANKY GUTIERREZ Reason For Exam: GLORIA Notified:: yes 08/29/17 13:16 Consult to PICC Line RN [CONS] Routine Reason For Exam: hypotension Type Line:: PICC Primary care physician: MINE EXPLORATION ENGINEER Hospitalization Condition: Critical Hospital course: 66-year-old femalewith multiple admissions comes in for severe confusion and Lethargy.Has difficulty breathing. Presents from a nursing facility with difficulty breathing and altered mental status.patient was recently disharged after being treated for Hepatic encephalopathy.No fever or chills Recent Discharge summary from 07/26/17 -----The patient is a 66 year old female sent from the [facility] apparently for altered mental status and anemia. GI consultation was requested for elevated LFTs, cirrhosis and possible hepatic encephalopathy. She has dementia and gave little history but is aware of advanced liver disease and hepatitis C. She does not know whether she has been treated and does not recall any current treating physicians. She has several comorbid conditions as below. No observed bleeding was noted during the hospitalization. Alk phos was 1080, AST 246, ALT 115, INR 1.42. The patient underwent paracentesis on 07/23/17 with removal of almost 7L of fluid. She has all the patient in consultation and felt patient was clinically improved and offered no further recommendations after paracentesis. Altered mental status was felt to be secondary to worsening dementia. Ammonia level was normal and unlikely due to hepatic encephalopathy. Patient received PRBCs for the anemia with posttransfusion hemoglobin of 9. - Patient Problems (1) Sepsis Current Visit: Yes Status: Acute Plan to address problem: From Urine versus spontaneous Bacterial peritonitis.Started on IV Zosyn and Vancomycin Pressors if necessary (2) Hepatic encephalopathy Current Visit: No Status: Acute Plan to address problem: Lactulose and Xifaxam Paracentesis ordered (3) GLORIA (acute kidney injury) Current Visit: Yes Status: Acute Plan to address problem: Nephrology consulted (4) Hyperammonemia Current Visit: Yes Status: Acute Plan to address problem: Cont Lactulose and Xifaxam (5) Hypoglycemia Current Visit: Yes Status: Acute Plan to address problem: Will stop oral Hypoglycemics for ever. Insulin coverage for now and 70/30 at discharge.Prefer BG in 150 to 300 range given her comorbidities (6) Hyponatremia Current Visit: No Status: Acute Plan to address problem: Patient has Ascites too.will defer to Nephrology (7) UTI (urinary tract infection) Current Visit: No Status: Acute Qualifiers: Urinary tract infection type: acute cystitis Plan to address problem: On Zosyn for sepsis (8) IDDM (insulin dependent diabetes mellitus) Current Visit: Yes Status: Chronic Plan to address problem: No oral hypoglycemics Insulin coverage Check A1c (9) Ascites Current Visit: Yes Status: Chronic Qualifiers: Ascites type: other type Qualified Code(s): R18.8 - Other ascites Plan to address problem: Paracentesis prn (10) Malnutrition Current Visit: Yes Status: Chronic Qualifiers: Protein-calorie malnutrition severity: severe Plan to address problem: Dietitian consult (11) DVT prophylaxis Current Visit: Yes Status: Acute Plan to address problem: Scd's Disposition: DC[facility]OSPICE ([facility]) Time spent for discharge: 33 minutes Core Measure Documentation - Palliative Care Palliative Care/ Comfort Measures: Hospice Care - Core Measures Any of the following diagnoses?: none Exam - Constitutional Vitals: Temp Pulse Resp BP Pulse Ox 98.2 F 133 H 17 91/49 100 08/29/17 12:00 08/29/17 13:59 08/29/17 13:59 08/29/17 12:00 08/29/17 12:00 General appearance: Present: other (appears very ill) - EENT Eyes: Present: PERRL ENT: dentition normal - Neck Neck: Present: supple - Respiratory Respiratory effort: labored Respiratory: bilateral: rales - Cardiovascular Heart Sounds: Present: S1 & S2. Absent: rub, click - Extremities Extremity abnormal: edema Peripheral Pulses: within normal limits - Abdominal General gastrointestinal: Present: soft - Integumentary Integumentary: Present: clear - Musculoskeletal Musculoskeletal: generalized weakness - Psychiatric Psychiatric: other (confused, lethargic) - Neurologic Neurologic: other (confused, lethargic and drowsy) Plan Follow up with: PRIMARY CARE,MD [Primary Care Provider] - 7 Days Prescriptions: Morphine Concentrate [Roxanol Conc 20 MG/ML ORAL LIQ] 10 mg PO Q4HR PRN #6 oralsyr PRN Reason: Pain
[2017-08-29 21:18] VITALS: BP 85/58
--- NOTE | 2017-08-30 01:58 | Consultation ---
PULMONARY CRITICAL CARE CONSULTATION NOTE CONSULTING PHYSICIAN: Dr. Lomeli. REASON FOR CONSULTATION: Sepsis syndrome. CHIEF COMPLAINT AND HISTORY OF PRESENT ILLNESS: The patient is a 66-year-old dark female with past medical history as far as I can tell significant for diagnosis of liver disease, hepatitis C, and prior admission for hepatic encephalopathy. She was brought into the Emergency Room secondary to shortness of breath, difficulty breathing, worsening lethargy. She was evaluated in the Emergency Room, amongst other things, she was found to be septic requiring vasopressors. It was felt that it was possible UTI versus bacterial peritonitis. She was admitted. Started on IV antibiotics and admitted to the Intensive Care Unit where I stopped by to see her. Where I stopped by to see her, she remained on a Levophed drip at 30 mcg per minute. She was arousable and followed some simple commands. She did have the look of delirium really was the way best way to describe her mental status at that time. I do not have any history of vomiting or overt aspiration. I do not have any history of acute GI bleeding. I do not have any history of variceal disease. The patient reportedly may have a history of malignancy and I will be looking into those notes shortly, but that really is as much of the history of this presentation as I have. 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 PAST SURGICAL HISTORY: She has reportedly had a hysterectomy. She has had large volume paracentesis in the past. MEDICATIONS: She was on at the time I stopped by to see her were reviewed, pertinent medications include the following: DuoNeb treatments with nebulized scheduled q.i.d. She was on a dextrose D10 water drip at 100 mL per hour, Lovenox 30 mg subq daily, hydrocortisone 100 mg IV q. 8 hours, p.r.n. Dilaudid, insulin via sliding scale. She had been on Lactulose 20 grams p.o. daily. She was on a Levophed drip at 30 mcg per minute, Protonix 20 mg p.o. q.a.m. and Zosyn 2.25 grams IV q. 8 hours, Xifaxan 550 mg p.o. b.i.d. She was on Zoloft 150 mg p.o. q.a.m. and vancomycin she received a 1 gram dose earlier. ALLERGIES: No known drug allergies. DIET: Slightly obese lady, acute weight loss or gain history is unknown. FAMILY AND SOCIAL HISTORY: correction resident. No current alcohol, tobacco, or illicit drug use or abuse. Remote history is unknown. She is described as a former smoker in the records and she does have the COPD. REVIEW OF SYSTEMS: Mostly Unobtainable secondary to patient's medical and mental condition at this time since she has been in no gross hematochezia or melena, no gross hematuria. No hemoptysis. No hematemesis, no witnessed seizures. Review of systems is otherwise unobtainable. PHYSICAL EXAMINATION: VITAL SIGNS: At presentation in the emergency room, she was hypothermic, temperature 95.4 degrees Fahrenheit, pulse of 100, respiratory rate of 10, blood pressure 70/33, oxygen sats were 90%, inspired oxygen concentration was not recorded. She has been afebrile, otherwise. Since she has been in the hospital, she did reach a T-max of 99.1. GENERAL: She is an elderly looking female, looks her stated age, normocephalic, atraumatic, but looks chronically ill and looks in mild respiratory distress. HEAD, EYES, EARS, NOSE AND THROAT: She has mild scleral icterus. No conjunctival erythema. Oropharynx is moist. No gross jugular venous distention, no thyromegaly. Grossly, no palpable lymph nodes in the supraclavicular or submandibular lymph node chains. LUNGS: Auscultation of both lung whitaker significant for diminished bilateral breath sounds, slightly prolonged expiratory phase. No active wheezing. Lungs were clear otherwise at the time of my evaluation. HEART: Heart sounds 1 and 2 are heard. Regular tachycardia at the time of my evaluation. No rubs, no murmurs. ABDOMEN: Soft, full. Mild epigastric tenderness. It is distended. No palpable hepatosplenomegaly. EXTREMITIES: Without overt digital clubbing or cyanosis. She has 1-2+ bipedal pitting edema. Dorsalis pedis pulses are palpable bilaterally. The skin is of poor turgor. Multiple areas of ecchymosis, all upper and lower extremities, the anterior chest wall. No overt cellulitis. NEUROLOGIC: Pupils are equal, round, about 3-4 mm, reactive to light. Extraocular muscle movements appeared intact. She had spontaneous movements to all extremities, but she was weak. LABORATORY DATA: From my review are as follows: White cell count on admission 18,400 with a hemoglobin of 9.9, hematocrit of 32.5, platelet count of 211. No band forms reported. INR was 1.75. Venous blood gas showed a pH of 7.25. Serum sodium was 126, potassium 4.3, chloride 93, bicarbonate 16, BUN 125, creatinine was 2.9 and glucose was 174. Lactic acid level was elevated at 2.2. Total bilirubin was up at 2.7, AST 60. Ammonia was up at 311. BNP within normal limits. Albumin low at 1.9. Urinalysis with small leukocyte esterase and 9 white cells per high power field. The lactic acid went up to 3.5. White cell count is up to 38.6 today. Blood cultures no growth to date. DIAGNOSTIC DATA: Chest x-ray was done at admission. I have reviewed the images as well as the radiologist's interpretation. I do appreciate a possible right upper lobe about 2 cm lesion; however, the right lower lobe lesion mentioned, I really do not appreciate. Chest x-ray from 2007, probably accounts also for the elevation of the hemidiaphragm on that side in particular also with rotation of the film. The film is rotated to the right side. No gross pneumothorax, no gross bony fractures. ASSESSMENT AND PLAN: 1. Severe sepsis syndrome. 2. Vzilj-yj-facdvcf encephalopathy. 3. Leukocytosis, possibly due to urinary tract infection. 4. Possible lung mass. 5. Decompensated liver cirrhosis. 6. Coagulopathy with an elevated INR. 7. Acute kidney injury, possibly on chronic. 8. Hyponatremia. 9. Ascites. 10. Anemia. 11. Lactic acidosis and metabolic acidosis that is probably worsening. PLAN: 1. I will get a stat ABG, take a better look at her acid base balance plus or minus deploy bilevel positive air pressure ventilation therapy. She will be continued on bronchodilator treatments at this point. I will evaluate the pulmonary parenchyma better once she is more stable. A CT scan of her chest without contrast to be done to evaluate for possible lung lesions as suggested on the chest x-ray. I cannot rule out venous thromboembolic phenomenon as part of her overall picture. I will go ahead and get bilateral lower extremity Dopplers in light of the leg swelling. We will hold on full anticoagulation at this point. Oxygen will be weaned to keep sats greater than or equal to about 90%. Aspiration precautions will be maintained. No acute indication for intubation. 2. With regards to the liver cirrhosis. We will continue her rifaximin. I will make the lactulose t.i.d. and follow the ammonia levels. NG tube will be placed to aid oral intake. I will defer otherwise to the insurance account assistant. She may benefit from another large volume paracentesis in particular to evaluate for possible bacterial peritonitis. 3. From a sepsis standpoint, we will continue broad spectrum antibiotic therapy as ordered. I will order a CRP level, trend the lactic acid level. Volume resuscitation will be continued. She is currently on normal saline also at 100 mL per hour. We will consult the infectious disease physician in particular in light of the significant elevation in her white cell count at this point. This may well be a steroid leukocytosis. I will see what we get in terms of the CRP levels and the lactic acid level. Consideration will also be made for beginning empiric Flagyl therapy for possible Clostridium difficile infection. 4. From acute kidney injury standpoint, we will continue volume resuscitation for possible prerenal numbers. The azotemia may be related to slow upper GI bleed and stool will be sent for occult blood testing. Nephrology consultation has been placed. Inputs and outputs will be monitored. Electrolytes will be corrected as necessary. 5. From a mental status standpoint, we will continue to work on reducing the ammonia levels. The exam is grossly nonfocal. No acute indication for neuro imaging. We will try and avoid any medications that in the setting of liver failure could worsen her mental status. I will discontinue the Zoloft at this point. I will discontinue the Dilaudid at this point and follow her clinically. From a general and hospital healthcare maintenance standpoint, she is on gastrointestinal prophylaxis as well as deep venous thrombosis prophylaxis. Flu and pneumonia vaccination will be per protocol. Thank you very much for the consult. Certainly a very ill. We will continue to observe her in the Intensive Care Unit. Now, there is a question of malignancy, I have discussed with the attending. We will reach out to the family in terms of the code status. For now, she remains a full code, but without acute indication for intubation. At this point, I have spent about 35-40 minutes of critical care time without overlap excluding any procedural time that may be necessary. I should mention a PICC line consult has been placed. We will be discontinuing her right femoral central line. JOB# [id number] VIC/YECENIA
--- NOTE | 2017-08-31 09:56 | Vascular Lab Report ---
LOWER EXTREMITY VENOUS DUPLEX: REASON FOR EXAM: Swelling. COMMENTS ON THE RIGHT: All veins visualized are freely compressible without evidence of internal echogenicity. Flow is spontaneous and phasic throughout. COMMENTS ON THE LEFT: All veins visualized are freely compressible without evidence of internal echogenicity. Flow is spontaneous and phasic throughout. There appears to be a venous catheter in the common femoral vein. IMPRESSION: No evidence of acute or chronic deep venous thrombosis in either lower extremity.
== END 2017-08-29 21:15 | disposition hospice, inpatient (51) | DRG 871 ==
LOC: ED 14:08 → CC1 21:52
PROVIDERS: ADMIT Internal Medicine; ATTEND Internal Medicine
PROC: 05HN33Z Insertion of Infusion Device into Left Internal Jugular Vein, Percutaneous Approach (ICD-10-PCS; principal; 2017-08-28)
PROC: B544ZZA Ultrasonography of Left Jugular Veins, Guidance (ICD-10-PCS; 2017-08-28)
PROC: 4A033R1 Measurement of Arterial Saturation, Peripheral, Percutaneous Approach (ICD-10-PCS; 2017-08-29)
DX: A41.9 Sepsis, unspecified organism (principal); E43 Unspecified severe protein-calorie malnutrition; N17.9 Acute kidney failure, unspecified; E87.1 Hypo-osmolality and hyponatremia; N39.0 Urinary tract infection, site not specified; R18.8 Other ascites; E72.20 Disorder of urea cycle metabolism, unspecified; D68.9 Coagulation defect, unspecified; E46 Unspecified protein-calorie malnutrition; Z68.27 Body mass index [BMI] 27.0-27.9, adult; K72.90 Hepatic failure, unspecified without coma; Z79.84 Long term (current) use of oral hypoglycemic drugs; Z87.891 Personal history of nicotine dependence; J44.9 Chronic obstructive pulmonary disease, unspecified; F32.9 Major depressive disorder, single episode, unspecified; K21.9 Gastro-esophageal reflux disease without esophagitis; Z79.4 Long term (current) use of insulin; K74.60 Unspecified cirrhosis of liver; E11.649 Type 2 diabetes mellitus with hypoglycemia without coma; B19.20 Unspecified viral hepatitis C without hepatic coma; F03.90 Unspecified dementia, unspecified severity, without behavioral disturbance, psychotic disturbance, mood disturbance, and anxiety; Z90.710 Acquired absence of both cervix and uterus; R65.20 Severe sepsis without septic shock; D64.9 Anemia, unspecified
CPT/HCPCS: 36415; 36600; 71045; 74018; 76770; 80053; 81001; 82140; 82550; 82553; 82803; 82805; 82962; 83036; 83880; 84484; 85007; 85025; 85610; 86140; 86850; 86900; 86901; 87040; 87086; 93005; 93010; 93970; 94640; 94760; J1650; J1720; J2543; J3370; J7030; J7040; J7050